=== PATIENT | female | born 1980 | race Caucasian/White ===

== ENCOUNTER 2020-05-15 21:33 | Emergency (ER) | payer MEDICAID, SELFPAY ==
[2020-05-15 22:58] VITALS: BP 103/61; PULSE 85; RESP 18; TEMP 36.3; O2SAT 99; BMI 21.6
--- NOTE | 2020-05-15 23:30 | ED.BACK ---
HPI - Back Pain/Injury General Chief Complaint: Back Pain/Injury Stated Complaint: back pain Time Seen by Provider: 05/15/20 23:15 Source: patient Mode of arrival: ambulatory Limitations: language barrier ([place] Speaking ) History of Present Illness HPI Narrative: 39yoF c PMHx of anxiety, depression and asthma presenting to the ED with complaints of left back/lower/left flank pain for the past 5 days worse today. Patient describes the pain as ?contractions?. Denies currently being or thoughts of at this time. Although she is sexually active with no protection. Reports she has been taking over the counter Motrin 600 and no symptomatic relief. Denies any other additional complaints or concerns at this time. 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 Related Data Allergies Allergy/AdvReac Type Severity Reaction Status Date / Time heparin [HEPARIN] Allergy Severe HIT Unverified 04/05/20 16:57 morphine [MORPHINE] Allergy Unknown N/A Unverified 04/05/20 16:57 Review of Systems Review of Systems: Constitutional : No Weight loss, No Fever, No Chills, no trauma Cardiovascular : No Chest Pain, No SOB Respiratory : No Cough, No Sputum, No Wheezing Gastrointestinal : No Nausea, No Vomiting, No Diarrhea, No Constipation, No abdominal Pain, No Hematochezia, No Melena Genitourinary : no irregular bleeding, No Dysuria, No Urinary Frequency, No Hematuria, No Urinary Incontinence, No Urgency, No Flank Pain, No Urinary Flow Changes, No Hesitancy, Bowel/Bladder Incont Musculoskeletal : No joint pain, No Myalgias, No Joint Swelling, No neck pain, extremity pain or swelling Skin : No Skin Lesions, No rash Neuro : No Weakness, No Numbness, No Paresthesias, No Loss of Consciousness, No Dizziness, No Headache Heme/Lymph: No Lymphadenopathy Yes all other systems are reviewed and are negative [facility] Past Medical History Attestation statement: The following information was validated with the patient. Medical History Anxiety Asthma Depressed Social History Social History Alcohol intake: never Smoking Status: Never smoker Use of substances other than those prescribed or required for medical reasons: No Advance Directives: No Physical Exam Vital Signs: Vital Signs: Vital Signs Temp Pulse Resp BP Pulse Ox 05/15/20 22:58 97.4 F 85 18 103/61 99 Body Mass Index 21.6 vital signs have been reviewed as normal and appeared to be correct. Blood pressure normal. Heart rate normal. Respiration rate normal. Temperature normal. Oxygen saturation normal. Appearance: Alert. Oriented X3. No acute distress. Head: Normal external exam. Normocephalic. Atraumatic. No Morris signs noted. No raccoon eyes noted Eyes: PERRLA. EOMI. Conjunctiva and sclera normal. Eyelids normal. ENT: EAC normal. TM's Normal. Pharynx normal. Uvula midline. Moist mucous membranes. No trismus noted. No drooling noted. No muffled voice noted. Neck: Normal inspection. Neck supple. FROM. No adenopathy. Thyroid Normal. No meningeal signs. No neck mass noted. CVS: Normal heart rate and rhythm. Heart sound normal. No murmurs noted. Pulses normal throughout. Respiratory: No respiratory distress. Painless inspiration. Breath sounds normal. No wheezes/rales/rhonchi noted. Chest nontender. No accessory muscle usage noted or decreased air movement noted. Abdomen: Soft and nontender. Bowel sounds normal in all 4 quadrants. No distention noted. No organomegaly noted. No visible injury noted. Back: + Left CVA tenderness. - Right CVA tenderness. Full range of motion noted. No obvious deformities, or edema. Mild para-spinal muscular tenderness from lumbar region to coccyx. Full ROM in back and lower extremities. 5/5 strength hip extension/flexion, abduction, adduction. Mild Lumbar pain with hip flexion against resistance. Straight leg raise test negative on right; Straight leg raise test negative on left; Reflexes normal ankle and knee bilaterally; EHL motor strength normal bilaterally Skin: Skin warm and dry. Normal skin color. Normal skin turgor. No rashes/lesions/lacerations noted. Extremities: No lower extremity edema. Extremities exhibit normal range of motion. Extremities nontender. Neuro: Oriented X 3. No motor deficit. No sensory deficit. Reflexes normal. Course Course Course Narrative: 23:26PM - 39yoF c PMHx of anxiety, depression and asthma presenting to the ED with complaints of left back/lower/left flank pain for the past 5 days worse today. - Concern for Kidney stones vs UTI vs muscle spasm. - Plan: UA, UHCG, CT scan of abdomen and pelvis. Provide symptomatic treatment with Toradol and Flexeril then re-evaluate. Reevaluation(s) Reevaluation #1: Labs within normal limits. Serum quant negative. UHCG negative for . UA within normal limits no evidence of UTI. Awaiting CT scan of abdomen pelvis. Will re-evaluate Time: 01:12 MDM - Back Pain/Injury Lab Data Result diagrams: 05/16/20 00:23 05/16/20 00:23 Labs: Lab Results 05/16/20 05/16/20 05/16/20 Range/Units 00:23 00:23 00:23 WBC 6.2 (4.8-10.8) X10*3/uL RBC 4.09 L (4.20-5.50) X10*6/uL Hgb 11.6 L (12.0-16.0) g/dl Hct 34.9 L (37-47) % MCV 85.3 (80-98) fL MCH 28.4 (27.0-33.0) pg MCHC 33.2 (31.0-35.0) g/dl RDW 12.8 (11.0-16.0) % Plt Count 177 (160-400) X10*3/uL MPV 10.5 (9.4-12.3) fL Immature Gran % (Auto) 0.2 (0.0-0.4) % Neut % (Auto) 50.2 (45-73) % Lymph % (Auto) 39.8 (20-40) % [place] % (Auto) 7.9 (2-11) % Eos % (Auto) 1.4 (0-4) % Baso % (Auto) 0.5 (0-2) % Lymph # (Auto) 2.5 (1.2-4.9) X10*3/uL [place] # (Auto) 0.5 (0.1-1.2) X10*3/uL Eos # (Auto) 0.1 (0.0-0.4) X10*3/uL Baso # (Auto) 0.0 (0.0-0.2) X10*3/uL Abs Immat Gran (auto) 0.01 (0.00-0.03) X10*3/uL Absolute Neuts (auto) 3.1 (2.0-8.3) X10*3/uL Absolute Nucleated RBC 0.000 (0.0-0.012) X10*3/uL Nucleated RBC % (auto) 0.0 (0.0-0.2) /100WBC PT 12.3 (10.8-13.0) SEC INR 1.0 (0.9-1.1) Sodium 141 (135-145) mmol/L Potassium 3.6 (3.3-5.1) mmol/l Chloride 107 (96-108) mmol/L Carbon Dioxide 23 (22-29) mmol/L Anion Gap 15 (12-20) BUN 15 (9-16) mg/dL Creatinine 0.80 (0.5-1.4) mg/dL Estim Creat Clear Calc 65.6 Estimated GFR > 60 Random Glucose 94 (60-115) mg/dL Calcium 9.3 (8.4-10.2) mg/dL Beta HCG, Quant < 2 mIU/mL Urine Color Urine Appearance Urine pH (5.0-8.0) Ur Specific [place] (1.005-1.025) Urine Protein (NEG-TRACE) MG/DL Urine Glucose (UA) (NEG) MG/DL Urine Ketones (NEG) MG/DL Urine Blood (NEG) Urine Nitrite (NEG) Ur Leukocyte Esterase (NEG) Urine Test (NEGATIVE) 05/16/20 Range/Units 00:23 WBC (4.8-10.8) X10*3/uL RBC (4.20-5.50) X10*6/uL Hgb (12.0-16.0) g/dl Hct (37-47) % MCV (80-98) fL MCH (27.0-33.0) pg MCHC (31.0-35.0) g/dl RDW (11.0-16.0) % Plt Count (160-400) X10*3/uL MPV (9.4-12.3) fL Immature Gran % (Auto) (0.0-0.4) % Neut % (Auto) (45-73) % Lymph % (Auto) (20-40) % [place] % (Auto) (2-11) % Eos % (Auto) (0-4) % Baso % (Auto) (0-2) % Lymph # (Auto) (1.2-4.9) X10*3/uL [place] # (Auto) (0.1-1.2) X10*3/uL Eos # (Auto) (0.0-0.4) X10*3/uL Baso # (Auto) (0.0-0.2) X10*3/uL Abs Immat Gran (auto) (0.00-0.03) X10*3/uL Absolute Neuts (auto) (2.0-8.3) X10*3/uL Absolute Nucleated RBC (0.0-0.012) X10*3/uL Nucleated RBC % (auto) (0.0-0.2) /100WBC PT (10.8-13.0) SEC INR (0.9-1.1) Sodium (135-145) mmol/L Potassium (3.3-5.1) mmol/l Chloride (96-108) mmol/L Carbon Dioxide (22-29) mmol/L Anion Gap (12-20) BUN (9-16) mg/dL Creatinine (0.5-1.4) mg/dL Estim Creat Clear Calc Estimated GFR Random Glucose (60-115) mg/dL Calcium (8.4-10.2) mg/dL Beta HCG, Quant mIU/mL Urine Color YELLOW Urine Appearance CLEAR Urine pH 5.5 (5.0-8.0) Ur Specific [place] 1.025 (1.005-1.025) Urine Protein NEG (NEG-TRACE) MG/DL Urine Glucose (UA) NEG (NEG) MG/DL Urine Ketones 5 (NEG) MG/DL Urine Blood NEG (NEG) Urine Nitrite NEG (NEG) Ur Leukocyte Esterase NEG (NEG) Urine Test NEGATIVE (NEGATIVE)
--- NOTE | 2020-05-16 00:10 | CT_ITS ---
EXAMINATION: CT ABDOMEN AND PELVIS WITHOUT CONTRAST CLINICAL INFORMATION: Left back/flank pain. COMPARISON: 05/26/2016 TECHNIQUE: Multidetector volumetric imaging was performed from the superior aspect of the liver through the pubic symphysis. Sagittal and coronal reformatted images were obtained on the technologist's workstation. This CT examination was performed using dose optimization techniques as appropriate, variously including the following: *Automated exposure control *Adjustment of mA and/or kV according to patient size (this includes techniques or standardized protocols for targeted exams where dose is matched to indication/reason for exam; i.e. extremities or head) *Use of iterative reconstruction technique DLP: 288 mGy-cm FINDINGS: LUNG BASES: The visualized lung bases are unremarkable. LIVER, GALLBLADDER, AND BILIARY TREE: The liver is normal in size, shape, and attenuation. No focal hepatic lesion or biliary ductal dilatation is present. The gallbladder is contracted with no evidence of radiopaque gallstones, gallbladder wall thickening, or obvious pericholecystic inflammatory changes. PANCREAS: Unremarkable. SPLEEN: Unremarkable. ADRENAL GLANDS: Unremarkable. KIDNEYS AND URETERS: The kidneys are normal in size, shape, and attenuation. No hydronephrosis, hydroureter, or calculi seen. No perinephric stranding. BLADDER: Unremarkable. GASTROINTESTINAL TRACT: The stomach is unremarkable. Normal caliber small bowel. No obstruction. No colonic wall thickening. Partially visualized normal appearing appendix. No free air. There is likely trace pelvic free fluid. ABDOMINAL WALL: No significant hernia is appreciated. LYMPH NODES: Normal. VASCULAR: Unremarkable. PELVIC VISCERA: The uterus and adnexa are unremarkable. OSSEOUS STRUCTURES: No acute or suspicious osseous abnormality. CT/CT abdomen pelvis wo con IMPRESSION: No acute findings of the abdomen or pelvis. No hydronephrosis or nephrolithiasis.
[2020-05-16 00:30] LABS: Basophils Percent Auto 0.5 % (0-2); Eosinophils Absolute Auto 0.1 X10*3/uL (0.0-0.4); Eosinophils Percent Auto 1.4 % (0-4); Hematocrit 34.9 % (37-47); Hemoglobin 11.6 g/dl (12.0-16.0); Imm Gran Abs Auto 0.01 X10*3/uL (0.00-0.03); Imm Gran Pct Auto 0.2 % (0.0-0.4); Lymphocytes Absolute Auto 2.5 X10*3/uL (1.2-4.9); Lymphocytes Percent Auto 39.8 % (20-40); MANUAL DIFF FLAG NO; Mean Corpuscular HGB Conc 33.2 g/dl (31.0-35.0); Mean Corpuscular Hemoglobin 28.4 pg (27.0-33.0); Mean Corpuscular Volume 85.3 fL (80-98); Mean Platelet Volume 10.5 fL (9.4-12.3); Monocytes Absolute Auto 0.5 X10*3/uL (0.1-1.2); Monocytes Percent Auto 7.9 % (2-11); Neutrophils Absolute Auto 3.1 X10*3/uL (2.0-8.3); Neutrophils Percent Auto 50.2 % (45-73); Platelet Count 177 X10*3/uL (160-400); Red Blood Count 4.09 X10*6/uL (4.20-5.50); Red Cell Distribution Width 12.8 % (11.0-16.0); White Blood Count 6.2 X10*3/uL (4.8-10.8)
[2020-05-16 00:37] LABS: Prothrombin Time 12.3 SEC (10.8-13.0)
[2020-05-16] MEDS: Ketorolac Tromethamine 15 MG/ML VIAL IM (00:49)
[2020-05-16] MEDS: Cyclobenzaprine HCl 10 MG TABLET PO (00:49)
[2020-05-16 00:51] LABS: Appearance Urine CLEAR; Color Urine YELLOW; Glucose Urine UA NEG (NEG); Leukocyte Esterase Urine NEG (NEG); Nitrite Urine NEG (NEG); PH 5.5 (5.0-8.0); Specific Gravity - Urine 1.025 (1.005-1.025); UACC Culture Trigger NO; UPreg QC Valid YES; Urine Blood NEG (NEG); Urine Ketones 5 MG/DL (NEG); Urine Protein NEG (NEG-TRACE)
[2020-05-16 00:52] LABS: Urine Pregnancy NEGATIVE (NEGATIVE)
[2020-05-16 00:54] LABS: Anion Gap 15 (12-20); Blood Urea Nitrogen 15 mg/dL (9-16); Calcium 9.3 mg/dL (8.4-10.2); Carbon Dioxide 23 mmol/L (22-29); Creatinine Clr Calc Pharmacy 65.6; Estimated Glomerular Filt Rate > 60; Glucose Random 94 mg/dL (60-115)
[2020-05-16 00:56] LABS: Chloride 107 mmol/L (96-108); Potassium 3.6 mmol/l (3.3-5.1); Sodium 141 mmol/L (135-145)
[2020-05-16 01:04] LABS: HCG Quantitative < 2 mIU/mL
[2020-05-16 02:00] VITALS: BP 122/68; PULSE 76; RESP 18; TEMP 36.8; O2SAT 98
[2020-05-16 03:33] VITALS: BP 136/78; PULSE 16; O2SAT 98
== END 2020-05-16 03:36 | disposition home or self-care (01) ==
PROVIDERS: Physician Assistant Medical; Emergency Provider Emergency Medicine
DX: M54.5 Low back pain (principal); R10.9 Unspecified abdominal pain; F41.1 Generalized anxiety disorder; F43.0 Acute stress reaction
CPT/HCPCS: 36415; 74176; 80048; 81003; 81025; 84702; 85025; 85610; 96372; 99284; J1885

== ENCOUNTER 2021-06-09 09:51 | Emergency (ER) | payer MEDICAID, SELFPAY ==
[2021-06-09 09:56] VITALS: BP 110/65; PULSE 72; RESP 19; TEMP 36.1; O2SAT 97; BMI 23.8
[2021-06-09 11:17] LABS: MANUAL DIFF FLAG NO
[2021-06-09] MEDS: 0.9 % Sodium Chloride 1,000 ML 999 ML IVCONT (11:17)
[2021-06-09] MEDS: ondansetron HCL 4 MG/2 ML VIAL IVPUSH (11:17)
[2021-06-09 11:19] LABS: Basophils Percent Auto 0.3 % (0-2); Eosinophils Percent Auto 0.3 % (0-4); Hematocrit 36.3 % (37.0-47.0); Hemoglobin 12.2 g/dl (12.0-16.0); Imm Gran Abs Auto 0.03 X10*3/uL (0.00-0.03); Imm Gran Pct Auto 0.3 % (0.0-0.4); Lymphocytes Absolute Auto 1.7 X10*3/uL (1.2-4.9); Lymphocytes Percent Auto 16.3 % (20-40); Mean Corpuscular HGB Conc 33.6 g/dl (31.0-35.0); Mean Corpuscular Hemoglobin 28.6 pg (27.0-33.0); Monocytes Absolute Auto 0.5 X10*3/uL (0.1-1.2); Monocytes Percent Auto 4.3 % (2-11); Neutrophils Absolute Auto 8.2 x10*3/uL (2.0-8.3); Neutrophils Percent Auto 78.5 % (45-73); Platelet Count 194 X10*3/uL (160-400); Red Blood Count 4.27 X10*6/uL (4.20-5.50); Red Cell Distribution Width 13.6 % (11.0-16.0); White Blood Count 10.4 X10*3/uL (4.8-10.8)
[2021-06-09 11:34] LABS: COVID-19 Test Negative (Negative); IDNOW Serial# 9DD0AD1C
--- NOTE | 2021-06-09 11:43 | ED.NAVMDI ---
HPI - Nausea/Vomiting/Diarrhea General Chief complaint: Nausea/Vomiting/Diarrhea Stated complaint: abd pain, vomiting, hx of gastritis Time Seen by Provider: 06/09/21 10:59 Source: patient Mode of arrival: ambulatory Limitations: no limitations History of Present Illness HPI Narrative: 40-year-old female with a history of depression, anxiety, mild intermittent asthma, cyclical vomiting who presents to the ER with acute onset of nausea, vomiting and epigastric pain that started this morning. She states she has vomited countless times since she woke up. She reports epigastric burning pain with a history of gastritis. She is dry heaving and triage. She appears weak and fatigued. She denies a history of diabetes. She reports a history of marijuana smoking and cyclical vomiting in the past. She denies any diarrhea or fevers. No new urinary symptoms. Denies chance of . MD elicited complaint: nausea, vomiting and abdominal pain Pertinent past history: cyclical vomiting Onset (ago): hour(s) Description of vomiting: food contents and bilious Associated nausea: Yes Associated abdominal pain: Yes Location of pain: epigastric Pain consistency: constant Severity: moderate Quality: aching Exacerbating factors: none Relieving factors: none Context: marijuana use Associated symptoms: loss of appetite, malaise, nausea/vomiting and weakness Related Data Previous Rx's Medication Instructions Recorded cyclobenzaprine 10 mg tablet 10 mg PO TID PRN #14 tab 05/16/20 ondansetron 4 mg disintegrating 4 mg PO Q8H PRN #7 tab 06/09/21 tablet Allergies Allergy/AdvReac Type Severity Reaction Status Date / Time heparin [HEPARIN] Allergy Severe HIT Unverified 04/05/20 16:57 morphine [MORPHINE] Allergy Unknown N/A Unverified 04/05/20 16:57 Review of Systems Review of Systems: Constitutional: No Fever, No Chills ENT/Mouth: No sore throat, No Rhinorrhea, No Swallowing Difficulty Cardiovascular: No Chest Pain, No SOB, No Orthopnea, No Edema Respiratory: No Cough, No Sputum, No Wheezing, No dyspnea Gastrointestinal: + Nausea, + Vomiting, No Diarrhea, + abdominal Pain, No Hematochezia, No Melena, No hematemesis Genitourinary: No Dysuria, No Urinary Frequency, No Hematuria Musculoskeletal: No joint pain, No Myalgias Skin: No Skin Lesions, No rash Neuro: + Weakness, No Numbness, No Dizziness, + Headache Psych: No Anxiety/Panic, No Depression Heme/Lymph: No Bruising, No Lymphadenopathy Endocrine: No Polyuria, No Polydipsia Gastrointestinal: Gastrointestinal: Reports nausea PMFSH Past Medical History Medical History Anxiety Asthma Depressed Social History Social History Alcohol intake: never Use of substances other than those prescribed or required for medical reasons: Yes Substance Use Type: Marijuana Advance Directives: No Advance Directives Information Provided: Yes Patient : No Physical Exam Vital Signs: Vital Signs: Last Vital Signs Temp 97 F 06/09/21 09:56 Pulse 76 06/09/21 16:09 Resp 16 06/09/21 16:09 BP 127/67 06/09/21 16:09 Pulse Ox 99 06/09/21 16:09 Body Mass Index 23.8 Appearance: Lethargic young female folded in half in the bed with yellow mucus from her mouth dry heaving. Eyes: Pupils equal, round and reactive to light. ENT: Pharynx normal. Neck: Normal inspection. Neck supple. CVS: Normal heart rate and rhythm. Pulses normal. Respiratory: No respiratory distress. Breath sounds normal. Abdomen: Soft with epigastric tenderness and guarding, hyperactive +BS x4 Skin: Skin warm and dry. Normal skin color. Normal skin turgor. No rashes. Extremities: No lower extremity edema. Neuro: Lethrgic, oriented X 3. No motor deficit. No sensory deficit. Course Course Course Narrative: 40 y/o female with history of cyclical vomiting and marijuana use presents to the ER with acute onset of nausea, vomiting, epigastric pain that started this morning. She appears unwell with active dry heaving on arrival. Her vital signs are normal, she is afebrile. Will start IV give IV Zofran, IV fluids and check basic lab work. Will rule out electrolyte abnormalities. Will check for COVID-19. Will reassess after IV medication. Reevaluation(s) Reevaluation #1: Patient persistently vomiting after Zofran. Patient was then given IV Reglan and Benadryl with good affect. Her lab work is unremarkable. Will continue to monitor. 2nd L of IV fluids were ordered. Reevaluation #2: Sleeping comfortably after 2nd round of meds. Marijuana positive. Tolerated some nahid shyann and cracker. Stable for d/c home. MDM - Nausea/Vomiting/Diarrhea Lab Data Result diagrams: 06/09/21 11:13 06/09/21 11:53 Labs: Lab Results 06/09/21 06/09/21 06/09/21 Range/Units 11:13 11:13 11:53 WBC 10.4 (4.8-10.8) X10*3/uL RBC 4.27 (4.20-5.50) X10*6/uL Hgb 12.2 (12.0-16.0) g/dl Hct 36.3 L (37.0-47.0) % MCV 85.0 (80.0-98.0) fL MCH 28.6 (27.0-33.0) pg MCHC 33.6 (31.0-35.0) g/dl RDW 13.6 (11.0-16.0) % Plt Count 194 (160-400) X10*3/uL MPV 11.0 (9.4-12.3) fL Immature Gran % (Auto) 0.3 (0.0-0.4) % Neut % (Auto) 78.5 H (45-73) % Lymph % (Auto) 16.3 L (20-40) % [place] % (Auto) 4.3 (2-11) % Eos % (Auto) 0.3 (0-4) % Baso % (Auto) 0.3 (0-2) % Lymph # (Auto) 1.7 (1.2-4.9) X10*3/uL [place] # (Auto) 0.5 (0.1-1.2) X10*3/uL Eos # (Auto) 0.0 (0.0-0.4) X10*3/uL Baso # (Auto) 0.0 (0.0-0.2) X10*3/uL Abs Immat Gran (auto) 0.03 (0.00-0.03) X10*3/uL Absolute Neuts (auto) 8.2 (2.0-8.3) x10*3/uL Absolute Nucleated RBC 0.000 (0.0-0.012) X10*3/uL Nucleated RBC % (auto) 0.0 (0.0-0.2) /100WBC Sodium 144 (135-145) mmol/L Potassium 3.6 (3.3-5.1) mmol/L Chloride 110 H (96-108) mmol/L Carbon Dioxide 21 L (22-29) mmol/L Anion Gap 17 (12-20) BUN 6 L D (9-16) mg/dL Creatinine 0.68 (0.5-1.4) mg/dL Estim Creat Clear Calc 88.7 Estimated GFR > 60 Random Glucose 129 H (60-115) mg/dL Calcium 8.9 (8.4-10.2) mg/dL Magnesium 2.1 (1.6-2.6) mg/dL Total Bilirubin 0.3 (0.0-1.0) mg/dL Direct Bilirubin < 0.2 (0.0-0.5) mg/dL AST 38 H (5-31) U/L ALT 31 (0-31) U/L Alkaline Phosphatase 50 (39-117) U/L Total Protein 6.6 (6.5-8.0) g/dL Albumin 4.0 (3.5-5.0) g/dL Lipase 18 (8-78) U/L Beta HCG, Quant < 2 mIU/mL Urine Color Urine Appearance Urine pH (5.0-8.0) Ur Specific [place] (1.005-1.025) Urine Protein (NEG-TRACE) MG/DL Urine Glucose (UA) (NEG) MG/DL Urine Ketones (NEG) MG/DL Urine Blood (NEG) Urine Nitrite (NEG) Ur Leukocyte Esterase (NEG) Urine Test (NEGATIVE) Urine Opiates Screen (Not Detect) Urine Fentanyl Screen (Not Detect) Ur Barbiturates Screen (Not Detect) Ur Phencyclidine Scrn (Not Detect) Ur Amphetamines Screen (Not Detect) U Benzodiazepines Scrn (Not Detect) Urine Cocaine Screen (Not Detect) U Marijuana (THC) Screen (Not Detect) COVID-19 (JENNIFER) Negative (Negative) COVID-19 Clin Com See Note 06/09/21 06/09/21 06/09/21 Range/Units 17:11 17:11 17:11 WBC (4.8-10.8) X10*3/uL RBC (4.20-5.50) X10*6/uL Hgb (12.0-16.0) g/dl Hct (37.0-47.0) % MCV (80.0-98.0) fL MCH (27.0-33.0) pg MCHC (31.0-35.0) g/dl RDW (11.0-16.0) % Plt Count (160-400) X10*3/uL MPV (9.4-12.3) fL Immature Gran % (Auto) (0.0-0.4) % Neut % (Auto) (45-73) % Lymph % (Auto) (20-40) % [place] % (Auto) (2-11) % Eos % (Auto) (0-4) % Baso % (Auto) (0-2) % Lymph # (Auto) (1.2-4.9) X10*3/uL [place] # (Auto) (0.1-1.2) X10*3/uL Eos # (Auto) (0.0-0.4) X10*3/uL Baso # (Auto) (0.0-0.2) X10*3/uL Abs Immat Gran (auto) (0.00-0.03) X10*3/uL Absolute Neuts (auto) (2.0-8.3) x10*3/uL Absolute Nucleated RBC (0.0-0.012) X10*3/uL Nucleated RBC % (auto) (0.0-0.2) /100WBC Sodium (135-145) mmol/L Potassium (3.3-5.1) mmol/L Chloride (96-108) mmol/L Carbon Dioxide (22-29) mmol/L Anion Gap (12-20) BUN (9-16) mg/dL Creatinine (0.5-1.4) mg/dL Estim Creat Clear Calc Estimated GFR Random Glucose (60-115) mg/dL Calcium (8.4-10.2) mg/dL Magnesium (1.6-2.6) mg/dL Total Bilirubin (0.0-1.0) mg/dL Direct Bilirubin (0.0-0.5) mg/dL AST (5-31) U/L ALT (0-31) U/L Alkaline Phosphatase (39-117) U/L Total Protein (6.5-8.0) g/dL Albumin (3.5-5.0) g/dL Lipase (8-78) U/L Beta HCG, Quant mIU/mL Urine Color YELLOW Urine Appearance HAZY Urine pH 7.0 (5.0-8.0) Ur Specific [place] 1.010 (1.005-1.025) Urine Protein TRACE (NEG-TRACE) MG/DL Urine Glucose (UA) NEG (NEG) MG/DL Urine Ketones 5 (NEG) MG/DL Urine Blood NEG (NEG) Urine Nitrite NEG (NEG) Ur Leukocyte Esterase NEG (NEG) Urine Test NEGATIVE (NEGATIVE) Urine Opiates Screen Not Detected (Not Detect) Urine Fentanyl Screen Not Detected (Not Detect) Ur Barbiturates Screen Not Detected (Not Detect) Ur Phencyclidine Scrn Not Detected (Not Detect) Ur Amphetamines Screen Not Detected (Not Detect) U Benzodiazepines Scrn Not Detected (Not Detect) Urine Cocaine Screen Not Detected (Not Detect) U Marijuana (THC) Screen POSITIVE H (Not Detect) COVID-19 (JENNIFER) (Negative) COVID-19 Clin Com Critical Care Time Critical Care Time Critical Care Time: No Discharge Plan Discharge Clinical Impression: Cyclical vomiting Patient Disposition: Home, Self-Care Instructions: Cyclic Vomiting Syndrome (ED) Additional Instructions: your lab workup was unremarkable. you were negative for COVID-19 recommend STOP smoking marijuana - this can cause cyclical vomiting that is hard to control stick to a bland diet while you are not feeling well take the prescribed medication as needed for nausea follow up with your doctor as needed if you develop new or worsening symptoms call 911 or come back to the ER for further evaluation. Prescriptions: New ondansetron 4 mg tablet,disintegrating 4 mg PO Q8H PRN (Reason: nausea and vomiting) Qty: 7 RF: 0 No Action cyclobenzaprine 10 mg tablet 10 mg PO TID PRN (Reason: muscle spasm) Qty: 14 RF: 0 Interventions: ED Discharge Assessment Last Done: 06/09/21 18:39 Discharge Date/Time: 06/09/21 18:39
[2021-06-09] MEDS: Metoclopramide HCl 10 MG/2 ML VIAL IVPUSH (11:56)
[2021-06-09] MEDS: diphenhydrAMINE HCL 50 MG/ML VIAL 25 MG IVPUSH (11:56)
[2021-06-09 12:19] LABS: Alanine Aminotransferase 31 U/L (0-31); Alkaline Phosphatase 50 U/L (39-117); Anion Gap 17 (12-20); Aspartate Amino Transferase 38 U/L (5-31); Bilirubin Direct < 0.2 mg/dL (0.0-0.5); Bilirubin Total 0.3 mg/dL (0.0-1.0); Blood Urea Nitrogen 6 mg/dL (9-16); Calcium 8.9 mg/dL (8.4-10.2); Carbon Dioxide 21 mmol/L (22-29); Chloride 110 mmol/L (96-108); Creatinine Clr Calc Pharmacy 88.7; Estimated Glomerular Filt Rate > 60; Glucose Random 129 mg/dL (60-115); Lipase 18 U/L (8-78); Magnesium 2.1 mg/dL (1.6-2.6); Potassium 3.6 mmol/L (3.3-5.1); Sodium 144 mmol/L (135-145); Total Protein 6.6 g/dL (6.5-8.0)
[2021-06-09 12:36] LABS: HCG Quantitative < 2 mIU/mL
[2021-06-09] MEDS: Lactated Ringers 1,000 ML 999 ML IV (12:48)
[2021-06-09 16:09] VITALS: BP 127/67; PULSE 76; RESP 16; O2SAT 99
[2021-06-09 17:20] LABS: Appearance Urine HAZY; Color Urine YELLOW; Glucose Urine UA NEG (NEG); Leukocyte Esterase Urine NEG (NEG); Nitrite Urine NEG (NEG); Urine Blood NEG (NEG); Urine Ketones 5 MG/DL (NEG); Urine Protein TRACE MG/DL (NEG-TRACE)
[2021-06-09 17:22] LABS: UPreg QC Valid YES; Urine Pregnancy NEGATIVE (NEGATIVE)
[2021-06-09 17:37] LABS: Amphetamine Screen Urine Not Detected (Not Detect); Barbiturates, Urine Not Detected (Not Detect); Benzodiazepines Screen Urine Not Detected (Not Detect); Cannabinoid Screen Urine POSITIVE (Not Detect); Cocaine Screen Urine Not Detected (Not Detect); Fentanyl, urine Not Detected (Not Detect); Opiate Screen Urine Not Detected (Not Detect); Phencyclidine Screen Urine Not Detected (Not Detect)
== END 2021-06-09 18:39 | disposition home or self-care (01) ==
PROVIDERS: Physician Assistant; Emergency Provider Emergency Medicine Emergency Medical Services
DX: R11.15 Cyclical vomiting syndrome unrelated to migraine (principal); Z20.822 Contact with and (suspected) exposure to COVID-19; Z79.899 Other long term (current) drug therapy
CPT/HCPCS: 36415; 80048; 80076; 80307; 81003; 81025; 83690; 83735; 84702; 85025; 87635; 96361; 96374; 96375; 99284; J1200; J2405; J2765

== ENCOUNTER 2021-06-10 03:31 | Emergency (ER) | payer MEDICAID, SELFPAY ==
--- NOTE | ~2021-06-10 | XR_ITS ---
EXAMINATION: XR ABDOMEN KUB CLINICAL INDICATION: Low suspicion perforation COMPARISON: None TECHNIQUE: AP view of the abdomen. FINDINGS: The bowel gas pattern is nonobstructive. No gross evidence of intra-abdominal free air, though evaluation for this is limited on supine positioning. A few tiny calcifications are noted in the right pelvis, which may represent phleboliths. No acute osseous findings are seen. XR/XR KUB IMPRESSION: Nonobstructive bowel gas pattern. Limited assessment for free air with supine positioning; this would be better assessed on upright abdominal or chest radiograph.
[2021-06-10 03:38] VITALS: BP 128/82; BP 98/58; PULSE 60; PULSE 97; RESP 18; TEMP 36.9; O2SAT 97; O2SAT 98; BMI 21.2
--- NOTE | 2021-06-10 04:51 | ED.NAVMDI ---
HPI - Nausea/Vomiting/Diarrhea General Chief complaint: Nausea/Vomiting/Diarrhea Stated complaint: N/V Time Seen by Provider: 06/10/21 04:46 Source: patient Mode of arrival: ambulatory Limitations: no limitations History of Present Illness HPI Narrative: Patient comes to the emergency room complaining of vomiting. Patient was seen here yesterday for the same reason. Patient has history of depression, anxiety, intermittent asthma, cyclical vomiting. Patient admits to using marijuana. Patient also known to have gastritis. Patient states that she has chronic diarrhea for which she is currently being treated. Patient denies fever chills. MD elicited complaint: nausea and vomiting Related Data Previous Rx's Medication Instructions Recorded cyclobenzaprine 10 mg tablet 10 mg PO TID PRN #14 tab 05/16/20 ondansetron 4 mg disintegrating 4 mg PO Q8H PRN #7 tab 06/09/21 tablet Allergies Allergy/AdvReac Type Severity Reaction Status Date / Time heparin [HEPARIN] Allergy Severe HIT Verified 06/10/21 05:03 morphine [MORPHINE] Allergy Unknown N/A Verified 06/10/21 05:03 [facility] Past Medical History Medical History (Updated 06/10/21 @ 06:10 by Nani Casillas MD) Anxiety Asthma Depressed Marijuana abuse Social History Social History Alcohol intake: never Substance Use Type: Marijuana Advance Directives: No Advance Directives Information Provided: No Patient : No Physical Exam Vital Signs: Vital Signs: Last Vital Signs Temp 98.4 F 06/10/21 03:38 Pulse 60 06/10/21 03:38 Resp 18 06/10/21 03:38 BP 98/58 L 06/10/21 03:38 Pulse Ox 98 06/10/21 03:38 Body Mass Index 21.2 Const: Other: Appearance: Alert. Oriented X3. retching and vomiting Eyes: Pupils equal, round and reactive to light. ENT: Pharynx normal. Neck: Normal inspection. Neck supple. No lymph nodes noted. No crepitus CVS: Normal heart rate and rhythm. Pulses normal. Normal S1 and S2 Respiratory: No respiratory distress. Breath sounds normal. No Wheezing. No rales Abdomen: Soft complaining of epigastric pain, No rigidity. No distention. Skin: Skin warm and dry. Normal skin color. Normal skin turgor. Extremities: No lower extremity edema. No Lacerations. No Rash Neuro: Oriented X 3. No motor deficit. No sensory deficit. Moving all extermities. No slurred speech. Course Course Course Narrative: Patient received 1 dose of p.o. Zofran, IV Compazine, IM Haldol, IV fluids. Patient stopped vomiting, patient is sleeping. When patient wakes up she will need EPO challenged. KUB negative for free air or bowel obstruction pattern Patient's white blood cell count likely secondary to reactive leukocytosis from continued vomiting. Sepsis is not suspected. Signout given to Dr. Tay [facility] - Nausea/Vomiting/Diarrhea Lab Data Result diagrams: 06/10/21 05:01 06/10/21 05:01 Labs: Lab Results 06/10/21 06/10/21 Range/Units 05:01 05:01 WBC 15.9 H (4.8-10.8) X10*3/uL RBC 4.08 L (4.20-5.50) X10*6/uL Hgb 11.7 L (12.0-16.0) g/dl Hct 34.9 L (37.0-47.0) % MCV 85.5 (80.0-98.0) fL MCH 28.7 (27.0-33.0) pg MCHC 33.5 (31.0-35.0) g/dl RDW 14.2 (11.0-16.0) % Plt Count 181 (160-400) X10*3/uL MPV 11.5 (9.4-12.3) fL Immature Gran % (Auto) 0.4 (0.0-0.4) % Neut % (Auto) 84.8 H (45-73) % Lymph % (Auto) 8.7 L (20-40) % [place] % (Auto) 6.0 (2-11) % Eos % (Auto) 0.0 (0-4) % Baso % (Auto) 0.1 (0-2) % Lymph # (Auto) 1.4 (1.2-4.9) X10*3/uL [place] # (Auto) 1.0 (0.1-1.2) X10*3/uL Eos # (Auto) 0.0 (0.0-0.4) X10*3/uL Baso # (Auto) 0.0 (0.0-0.2) X10*3/uL Abs Immat Gran (auto) 0.07 H (0.00-0.03) X10*3/uL Absolute Neuts (auto) 13.5 H (2.0-8.3) x10*3/uL Absolute Nucleated RBC 0.000 (0.0-0.012) X10*3/uL Nucleated RBC % (auto) 0.0 (0.0-0.2) /100WBC Sodium 142 (135-145) mmol/L Potassium 4.6 D (3.3-5.1) mmol/L Chloride 107 (96-108) mmol/L Carbon Dioxide 20 L (22-29) mmol/L Anion Gap 20 (12-20) BUN 11 D (9-16) mg/dL Creatinine 0.78 (0.5-1.4) mg/dL Estim Creat Clear Calc 66.6 Estimated GFR > 60 Random Glucose 106 (60-115) mg/dL Calcium 9.1 (8.4-10.2) mg/dL Total Bilirubin 0.7 (0.0-1.0) mg/dL Direct Bilirubin 0.3 (0.0-0.5) mg/dL AST 48 H (5-31) U/L ALT 39 H (0-31) U/L Alkaline Phosphatase 53 (39-117) U/L Total Protein 7.4 (6.5-8.0) g/dL Albumin 4.2 (3.5-5.0) g/dL Lipase 11 (8-78) U/L Beta HCG, Quant < 2 mIU/mL Imaging Data KUB: Radiologist's impression: The bowel gas pattern is nonobstructive. No gross evidence of intra-abdominal free air, though evaluation for this is limited on supine positioning. A few tiny calcifications are noted in the right pelvis, which may represent phleboliths. No acute osseous findings are seen. XR/XR KUB IMPRESSION: Nonobstructive bowel gas pattern. Limited assessment for free air with supine positioning; this would be better assessed on upright abdominal or chest radiograph. Discharge Plan Discharge Clinical Impression: Cyclical vomiting Prescriptions: No Action cyclobenzaprine 10 mg tablet 10 mg PO TID PRN (Reason: muscle spasm) Qty: 14 RF: 0 ondansetron 4 mg tablet,disintegrating 4 mg PO Q8H PRN (Reason: nausea and vomiting) Qty: 7 RF: 0
[2021-06-10] MEDS: Prochlorperazine Edisylate 10 MG/2 ML VIAL IVPUSH (05:03)
[2021-06-10] MEDS: Famotidine/PF 20 MG/2 ML VIAL IVPUSH (05:03)
[2021-06-10] MEDS: Haloperidol Lactate 5 MG/ML VIAL 2.5 MG IM (05:03)
[2021-06-10 05:04] LABS: Basophils Percent Auto 0.1 % (0-2); Hematocrit 34.9 % (37.0-47.0); Hemoglobin 11.7 g/dl (12.0-16.0); Imm Gran Abs Auto 0.07 X10*3/uL (0.00-0.03); Imm Gran Pct Auto 0.4 % (0.0-0.4); Lymphocytes Absolute Auto 1.4 X10*3/uL (1.2-4.9); Lymphocytes Percent Auto 8.7 % (20-40); Mean Corpuscular HGB Conc 33.5 g/dl (31.0-35.0); Mean Corpuscular Hemoglobin 28.7 pg (27.0-33.0); Mean Corpuscular Volume 85.5 fL (80.0-98.0); Mean Platelet Volume 11.5 fL (9.4-12.3); Neutrophils Absolute Auto 13.5 x10*3/uL (2.0-8.3); Neutrophils Percent Auto 84.8 % (45-73); Platelet Count 181 X10*3/uL (160-400); Red Blood Count 4.08 X10*6/uL (4.20-5.50); Red Cell Distribution Width 14.2 % (11.0-16.0); WBC ABN SCTR 1
[2021-06-10 05:05] LABS: MANUAL DIFF FLAG NO
[2021-06-10 05:06] LABS: WBC ABN SCTR FOR CBC 1
[2021-06-10] MEDS: 0.9 % Sodium Chloride 1,000 ML 999 ML IVCONT (05:07)
[2021-06-10 05:11] LABS: White Blood Count 15.9 X10*3/uL (4.8-10.8)
[2021-06-10 05:30] LABS: Alanine Aminotransferase 39 U/L (0-31); Albumin Level 4.2 g/dL (3.5-5.0); Alkaline Phosphatase 53 U/L (39-117); Anion Gap 20 (12-20); Aspartate Amino Transferase 48 U/L (5-31); Bilirubin Direct 0.3 mg/dL (0.0-0.5); Bilirubin Total 0.7 mg/dL (0.0-1.0); Blood Urea Nitrogen 11 mg/dL (9-16); Calcium 9.1 mg/dL (8.4-10.2); Carbon Dioxide 20 mmol/L (22-29); Chloride 107 mmol/L (96-108); Creatinine Clr Calc Pharmacy 66.6; Estimated Glomerular Filt Rate > 60; Glucose Random 106 mg/dL (60-115); Lipase 11 U/L (8-78); Potassium 4.6 mmol/L (3.3-5.1); Sodium 142 mmol/L (135-145); Total Protein 7.4 g/dL (6.5-8.0)
[2021-06-10 05:33] LABS: HCG Quantitative < 2 mIU/mL
[2021-06-10 07:27] VITALS: BP 117/65; PULSE 55; RESP 18; O2SAT 100
--- NOTE | 2021-06-10 07:29 | PC.NURSE ---
Persistent epigastric abd pain 8/10, dry heaving. Urine collected.
[2021-06-10] MEDS: 0.9 % Sodium Chloride 1,000 ML 999 ML IV (07:36)
[2021-06-10] MEDS: ondansetron HCL 4 MG/2 ML VIAL IVPUSH (07:36)
[2021-06-10] MEDS: LORazepam 2 MG/ML VIAL 1 MG IVPUSH (07:37)
--- NOTE | 2021-06-10 07:37 | PC.NURSE ---
Medicated as charted
[2021-06-10 07:38] LABS: Appearance Urine CLEAR; Color Urine YELLOW; Glucose Urine UA NEG (NEG); Leukocyte Esterase Urine NEG (NEG); Nitrite Urine NEG (NEG); Specific Gravity - Urine >= 1.030 (1.005-1.025); UACC Culture Trigger NO; Urine Blood NEG (NEG); Urine Ketones 5 MG/DL (NEG); Urine Protein 2+ MG/DL (NEG-TRACE)
[2021-06-10 07:58] LABS: Amphetamine Screen Urine Not Detected (Not Detect); Barbiturates, Urine Not Detected (Not Detect); Benzodiazepines Screen Urine Not Detected (Not Detect); Cannabinoid Screen Urine POSITIVE (Not Detect); Cocaine Screen Urine Not Detected (Not Detect); Fentanyl, urine Not Detected (Not Detect); Opiate Screen Urine Not Detected (Not Detect); Phencyclidine Screen Urine Not Detected (Not Detect)
[2021-06-10 08:00] LABS: Mucus Urine 1+ /LPF; RBC Urine 0-2 /HPF (0); Squamous Epithelial Cell Urine 1+ /LPF; WBC Urine 0-2 /HPF (0-4)
--- NOTE | 2021-06-10 10:44 | PC.NURSE ---
Pt is asleep, attempting to awake for PO challenge. Barbarahter at bedside and will assist. No further vomiting s/p medication interventions
[2021-06-10 10:46] VITALS: BP 102/47; PULSE 50; RESP 14
== END 2021-06-10 11:30 | disposition home or self-care (01) ==
PROVIDERS: Emergency Medicine; Emergency Provider Emergency Medicine
DX: R11.15 Cyclical vomiting syndrome unrelated to migraine (principal); F12.10 Cannabis abuse, uncomplicated; D72.829 Elevated white blood cell count, unspecified
CPT/HCPCS: 36415; 74018; 80048; 80076; 80307; 81001; 83690; 84702; 85025; 96361; 96372; 96374; 96375; 99284; J2060; J2405

== ENCOUNTER → 2021-07-09 09:39 | Outpatient (BNVA) | payer MEDICAID, SELFPAY | PROVIDERS: Referring Provider Emergency Medicine; Visit Provider Nurse Practitioner Family | DX: K58.0 Irritable bowel syndrome with diarrhea (principal); K21.9 Gastro-esophageal reflux disease without esophagitis; R19.7 Diarrhea, unspecified | CPT/HCPCS: 99202 ==

== ENCOUNTER 2021-11-06 11:01 | Emergency (ER) | payer MEDICAID, SELFPAY ==
--- NOTE | ~2021-11-06 | XR_ITS ---
EXAMINATION: XR CHEST CLINICAL INFORMATION: Dyspnea COMPARISON: 06/24/2017 TECHNIQUE: Frontal view of the chest was obtained. FINDINGS: No significant abnormality is noted involving the heart, lungs, mediastinum, bony thorax or soft tissues. XR/XR chest 1V IMPRESSION: Unremarkable examination.
--- NOTE | 2021-11-06 11:17 | ECG_ITS ---
Test Reason : CHEST PAIN Blood Pressure : / mmHG Vent. Rate : 118 BPM Atrial Rate : 118 BPM P-R Int : 130 ms QRS Dur : 064 ms QT Int : 304 ms P-R-T Axes : 082 051 038 degrees QTc Int : 426 ms Sinus tachycardia Possible Left atrial enlargement Borderline ECG When compared with ECG of 25-MAR-2020 12:49, Vent. rate has increased BY 49 BPM T wave inversion no longer evident in Anterior leads Referred By: Generic ED Physician Electronically Signed By:ZANDRA MONROE MD
[2021-11-06 11:20] VITALS: BP 103/62; PULSE 109; RESP 25; TEMP 37.5; O2SAT 99; BMI 18.6
--- NOTE | 2021-11-06 11:48 | ED_ITS ---
HPI - General Adult General Chief complaint: Dyspnea Stated complaint: asthma diff breathing Time Seen by Provider: 11/06/21 11:47 Limitations: no limitations History of Present Illness HPI narrative: This is a 40-year-old female with history of asthma who complains of shortness of breath and some chest discomfort which started yesterday after she had been running in the rain. The patient also complains of some headache. She denies any nausea vomiting. She denies any rhinorrhea. She has felt like she has had a fever. She denies any pain or swelling in her legs. She denies any history of diabetes Related Data Previous Rx's Medication Instructions Recorded cyclobenzaprine 10 mg tablet 10 mg PO TID PRN #14 tab 05/16/20 ondansetron 4 mg disintegrating 4 mg PO Q8H PRN #7 tab 06/09/21 tablet ondansetron 4 mg disintegrating 4 mg PO Q8H PRN #20 tab 06/10/21 tablet promethazine 25 mg rectal 25 mg LA Q6H PRN #12 ea 06/10/21 suppository dicyclomine 10 mg capsule 10 mg PO TID #90 cap 07/09/21 methylcellulose (laxative) 500 mg 500 mg PO DAILY #30 tab 07/09/21 tablet (Citrucel) omeprazole 40 mg capsule,delayed 40 mg PO DAILY #90 cap 07/09/21 release Allergies Allergy/AdvReac Type Severity Reaction Status Date / Time heparin [HEPARIN] Allergy Severe HIT Verified 11/06/21 11:22 morphine [MORPHINE] Allergy Unknown N/A Verified 11/06/21 11:22 Review of Systems Review of Systems: Yes all other systems are reviewed and are negative Constitutional: Constitutional: Reports as per HPI and Denies fever(s) Eyes: Eyes: Reports as per HPI and Reports no additional eye complaints ENT: Reports system reviewed and no additional complaints, except as documented, Reports as per HPI, Denies nasal congestion, Denies nasal discharge and Denies sore throat Cardiovascular: Cardiovascular: Reports as per HPI, Denies chest pain and Reports dyspnea Respiratory: Respiratory: Reports as per HPI, Reports cough and Reports dyspnea Gastrointestinal: Gastrointestinal: Reports as per HPI, Denies abdominal pain, Denies diarrhea, Reports nausea and Denies vomiting Genitourinary: Genitourinary: Reports as per HPI, Denies hematuria, Denies urinary frequency and Denies dysuria Musculoskeletal: Musculoskeletal: Reports no additional musculoskeletal complaints and Denies numbness Integumentary/Breasts: Skin/Breast: Reports as per HPI and Denies rash Neurologic: Reports as per HPI, Denies focal weakness and Denies numbness Psychiatric: Psychiatric: Reports no additional psychiatric complaints and Reports as per HPI Endocrine: Endocrine: Reports no additional endocrine complaints and Reports as per HPI Hematologic/Lymphatic: Hematologic/Lymphatic: Reports no additional hematologic/lymphatic complaints, Reports as per HPI and Reports other (No peripheral edema) [facility] Past Medical History Medical History (Updated 11/06/21 @ 13:54 by Narinder Gutierrez MD) Anxiety Asthma Depressed Marijuana abuse Social History Social History Alcohol intake: current Alcohol intake frequency: holidays/special occasions only Substance Use Type: Marijuana Advance Directives: No Advance Directives Information Provided: No Physical Exam ED Vital Signs: Vital Signs - 24 hr 11/06/21 11:20 11/06/21 12:00 11/06/21 13:42 Temperature 99.5 F 98.6 F Pulse Rate 109 H 84 116 H Respiratory Rate 25 H 20 20 Blood Pressure 103/62 100/55 L Pulse Oximetry 99 96 BMI result Body Mass Index 18.6 Const Other: Patient anxious appearing, hyperventilating, but with distraction breathes normally, lungs clear to auscultation. Patient does have an intermittent dry cough General: no acute distress Orientation/consciousness: patient oriented x3 HENMT Head: Yes normal to inspection General nose exam: Normal external nose present Mouth: moist mucous membranes Throat: Yes posterior oropharynx normal, Yes tonsils normal and Yes uvula midline Eyes Eyelids: Yes eyelids normal Conjunctivae: conjunctivae normal Pupils: Equal, round and reactive pupils present Neck Neck: Yes supple Resp Effort & Inspection: normal respiratory effort Auscultation: clear to auscultation bilaterally Cardio Rate: regular rate Rhythm: regular rhythm Heart sounds: S1 normal heart sound present, S2 normal heart sound present, no gallops, no murmurs and no rubs GI Inspection: No distended Palpation (GI): Soft to palpation and nontender Auscultation: normal bowel sounds Skin General skin exam: other (Warm and dry) Neuro General: patient oriented x3 and CN's II-XI intact bilaterally Cranial nerves: Yes Equal, round and reactive pupils present Extrem General: Yes no pedal edema Psych Affect: normal affect Attitude: cooperative Medical Decision Making MDM Narrative Medical decision making narrative: Patient with history of anxiety and asthma, presents appearing very anxious after she had been out in the rain yesterday and felt that she had gotten sick. Patient had normal lung exam, normal chest x-ray. Patient was given albuterol nebulizer treatment, Ativan and subsequently her heart rate improved she has fallen asleep. Patient is written for discharge. Labs are unremarkable. COVID negative Lab Data Result diagrams: 11/06/21 13:12 11/06/21 13:12 Labs: Lab Results 11/06/21 11/06/21 11/06/21 Range/Units 13:12 13:12 13:12 WBC 6.0 (4.8-10.8) X10*3/uL RBC 4.33 (4.20-5.50) X10*6/uL Hgb 12.1 (12.0-16.0) g/dl Hct 36.5 L (37.0-47.0) % MCV 84.3 (80.0-98.0) fL MCH 27.9 (27.0-33.0) pg MCHC 33.2 (31.0-35.0) g/dl RDW 13.0 (11.0-16.0) % Plt Count 122 L D (160-400) X10*3/uL MPV 11.4 (9.4-12.3) fL Immature Gran % (Auto) 0.3 (0.0-0.4) % Neut % (Auto) 84.4 H (45-73) % Lymph % (Auto) 9.8 L (20-40) % [place] % (Auto) 5.3 (2-11) % Eos % (Auto) 0.0 (0-4) % Baso % (Auto) 0.2 (0-2) % Lymph # (Auto) 0.6 L (1.2-4.9) X10*3/uL [place] # (Auto) 0.3 (0.1-1.2) X10*3/uL Eos # (Auto) 0.0 (0.0-0.4) X10*3/uL Baso # (Auto) 0.0 (0.0-0.2) X10*3/uL Abs Immat Gran (auto) 0.02 (0.00-0.03) X10*3/uL Absolute Neuts (auto) 5.1 (2.0-8.3) x10*3/uL Absolute Nucleated RBC 0.000 (0.0-0.012) X10*3/uL Nucleated RBC % (auto) 0.0 (0.0-0.2) /100WBC Sodium 136 (135-145) mmol/L Potassium 3.3 D (3.3-5.1) mmol/L Chloride 105 (96-108) mmol/L Carbon Dioxide 23 (22-29) mmol/L Anion Gap 11 L (12-20) BUN 9 (9-16) mg/dL Creatinine 0.75 (0.5-1.4) mg/dL Estim Creat Clear Calc 76.4 Estimated GFR > 60 Random Glucose 73 (60-115) mg/dL Calcium 9.4 (8.4-10.2) mg/dL Troponin I High Sens < 3.5 (<3.5-17.0) ng/L B-Natriuretic Peptide 24 (<100) pg/mL COVID-19 ([facility]ENN[facility]ER) (Negative) COVID-19 Clin Com 11/06/21 Range/Units 13:12 WBC (4.8-10.8) X10*3/uL RBC (4.20-5.50) X10*6/uL Hgb (12.0-16.0) g/dl Hct (37.0-47.0) % MCV (80.0-98.0) fL MCH (27.0-33.0) pg MCHC (31.0-35.0) g/dl RDW (11.0-16.0) % Plt Count (160-400) X10*3/uL MPV (9.4-12.3) fL Immature Gran % (Auto) (0.0-0.4) % Neut % (Auto) (45-73) % Lymph % (Auto) (20-40) % [place] % (Auto) (2-11) % Eos % (Auto) (0-4) % Baso % (Auto) (0-2) % Lymph # (Auto) (1.2-4.9) X10*3/uL [place] # (Auto) (0.1-1.2) X10*3/uL Eos # (Auto) (0.0-0.4) X10*3/uL Baso # (Auto) (0.0-0.2) X10*3/uL Abs Immat Gran (auto) (0.00-0.03) X10*3/uL Absolute Neuts (auto) (2.0-8.3) x10*3/uL Absolute Nucleated RBC (0.0-0.012) X10*3/uL Nucleated RBC % (auto) (0.0-0.2) /100WBC Sodium (135-145) mmol/L Potassium (3.3-5.1) mmol/L Chloride (96-108) mmol/L Carbon Dioxide (22-29) mmol/L Anion Gap (12-20) BUN (9-16) mg/dL Creatinine (0.5-1.4) mg/dL Estim Creat Clear Calc Estimated GFR Random Glucose (60-115) mg/dL Calcium (8.4-10.2) mg/dL Troponin I High Sens (<3.5-17.0) ng/L B-Natriuretic Peptide (<100) pg/mL COVID-19 ([facility]ENN[facility]ER) Negative (Negative) COVID-19 Clin Com See Note Imaging Data Chest x-ray: Radiologist's impression: IMPRESSION: Unremarkable examination. ? ECG Data Attestation: I personally reviewed and interpreted this ECG as follows: Interpretation: Sinus tachycardia with a rate of 118. Left atrial enlargement. No concerning ST elevation or depression. Normal QRS axis. Discharge Plan Discharge Clinical Impression: Anxiety, Dyspnea Instructions: Anxiety (ED) Additional Instructions: Follow-up with your primary care physician. Return for any new or worsened symptoms. Your COVID test was negative. Your chest x-ray was normal. You did not have any wheezing on exam. Prescriptions: No Action cyclobenzaprine 10 mg tablet 10 mg PO TID PRN (Reason: muscle spasm) Qty: 14 0RF promethazine 25 mg suppository 25 mg LA Q6H PRN (Reason: nausea and vomiting) Qty: 12 0RF ondansetron 4 mg tablet,disintegrating 4 mg PO Q8H PRN (Reason: nausea and vomiting) Qty: 20 0RF ondansetron 4 mg tablet,disintegrating 4 mg PO Q8H PRN (Reason: nausea and vomiting) Qty: 7 0RF omeprazole 40 mg capsule,delayed release(DR/EC) 40 mg PO DAILY Qty: 90 3RF Citrucel 500 mg tablet 500 mg PO DAILY Qty: 30 2RF Rx Instructions: take it with full glass of water dicyclomine 10 mg capsule 10 mg PO TID Qty: 90 2RF
[2021-11-06] MEDS: LORazepam 2 MG/ML VIAL 1 MG IVPUSH (11:57)
[2021-11-06 12:00] VITALS: PULSE 84; RESP 20; O2SAT 97
[2021-11-06] MEDS: Albuterol/Iprat 2.5/0.5MG 3 ML AMPUL.NEB INHALE (12:00)
[2021-11-06 13:16] LABS: MANUAL DIFF FLAG NO
[2021-11-06 13:24] LABS: Basophils Percent Auto 0.2 % (0-2); Hematocrit 36.5 % (37.0-47.0); Hemoglobin 12.1 g/dl (12.0-16.0); Imm Gran Abs Auto 0.02 X10*3/uL (0.00-0.03); Imm Gran Pct Auto 0.3 % (0.0-0.4); Lymphocytes Absolute Auto 0.6 X10*3/uL (1.2-4.9); Lymphocytes Percent Auto 9.8 % (20-40); Mean Corpuscular HGB Conc 33.2 g/dl (31.0-35.0); Mean Corpuscular Hemoglobin 27.9 pg (27.0-33.0); Mean Corpuscular Volume 84.3 fL (80.0-98.0); Mean Platelet Volume 11.4 fL (9.4-12.3); Monocytes Absolute Auto 0.3 X10*3/uL (0.1-1.2); Monocytes Percent Auto 5.3 % (2-11); Neutrophils Absolute Auto 5.1 x10*3/uL (2.0-8.3); Neutrophils Percent Auto 84.4 % (45-73); Red Blood Count 4.33 X10*6/uL (4.20-5.50)
[2021-11-06 13:26] LABS: Platelet Count 122 X10*3/uL (160-400)
[2021-11-06 13:37] LABS: Anion Gap 11 (12-20); Blood Urea Nitrogen 9 mg/dL (9-16); Calcium 9.4 mg/dL (8.4-10.2); Carbon Dioxide 23 mmol/L (22-29); Chloride 105 mmol/L (96-108); Creatinine Clr Calc Pharmacy 76.4; Estimated Glomerular Filt Rate > 60; Glucose Random 73 mg/dL (60-115); Potassium 3.3 mmol/L (3.3-5.1); Sodium 136 mmol/L (135-145)
[2021-11-06 13:42] VITALS: BP 100/55; PULSE 116; RESP 20; TEMP 37; O2SAT 96
[2021-11-06 13:43] LABS: B Type Natriuretic Peptide 24 pg/mL (<100); Troponin-I High Sensitivity < 3.5 ng/L (<3.5-17.0)
[2021-11-06 13:46] LABS: COVID-19 Test Negative (Negative)
[2021-11-06 16:00] VITALS: BP 117/66; PULSE 115; RESP 16; TEMP 37.8; O2SAT 97
== END 2021-11-06 17:20 | disposition home or self-care (01) ==
PROVIDERS: Emergency Provider Emergency Medicine
DX: R06.00 Dyspnea, unspecified (principal); F41.9 Anxiety disorder, unspecified; R51.9 Headache, unspecified; J45.909 Unspecified asthma, uncomplicated; Z20.822 Contact with and (suspected) exposure to COVID-19
CPT/HCPCS: 36415; 71045; 80048; 83880; 84484; 85025; 87635; 93005; 94640; 96374; 99284; J2060

== ENCOUNTER 2022-01-12 14:22 | Emergency (ER) | payer MEDICAID, SELFPAY ==
--- NOTE | ~2022-01-12 | US_ITS ---
EXAMINATION: US ABDOMEN LIMITED CLINICAL INFORMATION: Right upper quadrant pain. COMPARISON: None TECHNIQUE: Real-time imaging of the right upper quadrant abdominal viscera. FINDINGS: Limited exam due to tachypnea and a unable to hold breath. PANCREAS: Normal. LIVER: There is an echogenic focus in the right hepatic lobe without shadowing. The liver is normal in size. The liver contour is normal. Parenchymal echogenicity is normal. No focal hepatic lesion. There is no intrahepatic biliary duct dilatation seen. GALLBLADDER: There is echogenic mobile sludge suspected. The gallbladder is physiologically distended without evidence of stones, polyps, wall thickening or pericholecystic fluid. COMMON BILE DUCT: Normal in caliber measuring 0.2 cm in diameter. RIGHT KIDNEY: Normal. No hydronephrosis. No renal calculi or focal parenchymal lesions. The kidney measures 8.9 cm in maximum dimension. FREE FLUID: None. US/US abdomen limited IMPRESSION: Echogenic gallbladder sludge without wall thickening. Punctate echogenic focus right hepatic lobe. Otherwise the liver is unremarkable.
[2022-01-12 14:27] VITALS: BP 110/70; BP 118/71; PULSE 70; PULSE 74; RESP 18; TEMP 36.4; O2SAT 100; O2SAT 99; BMI 24.2
[2022-01-12 16:26] LABS: MANUAL DIFF FLAG NO
[2022-01-12 16:27] LABS: Basophils Percent Auto 0.3 % (0-2); Eosinophils Percent Auto 0.2 % (0-4); Hemoglobin 12.2 g/dl (12.0-16.0); Imm Gran Abs Auto 0.03 X10*3/uL (0.00-0.03); Imm Gran Pct Auto 0.3 % (0.0-0.4); Lymphocytes Absolute Auto 0.9 X10*3/uL (1.2-4.9); Lymphocytes Percent Auto 8.7 % (20-40); Mean Corpuscular Hemoglobin 27.9 pg (27.0-33.0); Mean Corpuscular Volume 84.5 fL (80.0-98.0); Mean Platelet Volume 11.8 fL (9.4-12.3); Monocytes Absolute Auto 0.3 X10*3/uL (0.1-1.2); Monocytes Percent Auto 3.4 % (2-11); Neutrophils Absolute Auto 8.5 x10*3/uL (2.0-8.3); Neutrophils Percent Auto 87.1 % (45-73); Platelet Count 182 X10*3/uL (160-400); Red Blood Count 4.38 X10*6/uL (4.20-5.50); Red Cell Distribution Width 13.8 % (11.0-16.0); White Blood Count 9.7 X10*3/uL (4.8-10.8)
--- NOTE | 2022-01-12 16:32 | ED.ABDPAIN ---
HPI - Abdominal Pain General Chief Complaint: Nausea/Vomiting/Diarrhea Stated Complaint: NAUSEA VOMITING Time Seen by Provider: 01/12/22 14:45 Source: patient Mode of arrival: ambulatory Limitations: no limitations History of Present Illness HPI narrative: 41-year-old female with past medical history significant for depression, anxiety, intermittent asthma, and cyclical vomiting, presents to the with vomiting since 05:00 o'clock, starting after eating a [employer] hamburger at work. Vomiting is minimal with clear and bilious appearance. She reports a similar episode occurring to 3 months ago that was relieved with IV medication?. Her pain is in the epigastrium rated as 10/10, and does not radiate. She reports nothing makes the vomiting better or worse. She reports episodes of dizziness before and during this event. She denies any sick contacts, fever, chills, shortness of breath, palpitations, difficulty breathing, and chest pain. Reports smoking marijuana last night Related Data Previous Rx's Medication Instructions Recorded cyclobenzaprine 10 mg tablet 10 mg PO TID PRN muscle spasm #14 05/16/20 tabs ondansetron 4 mg disintegrating 4 mg PO Q8H PRN nausea and 06/09/21 tablet vomiting #7 tabs ondansetron 4 mg disintegrating 4 mg PO Q8H PRN nausea and 06/10/21 tablet vomiting #20 tabs promethazine 25 mg rectal 25 mg [place] Q6H PRN nausea and 06/10/21 suppository vomiting #12 ea methylcellulose (laxative) 500 mg 500 mg PO DAILY #30 tabs 07/09/21 tablet (Citrucel) omeprazole 40 mg capsule,delayed 40 mg PO DAILY #90 caps 07/09/21 release dicyclomine 10 mg capsule 10 mg PO TID #90 caps 11/13/21 ondansetron 4 mg disintegrating 4 mg PO ONCE PRN nausea and 01/12/22 tablet vomiting #10 tabs Allergies Allergy/AdvReac Type Severity Reaction Status Date / Time heparin [HEPARIN] Allergy Severe HIT Verified 11/06/21 11:22 morphine [MORPHINE] Allergy Unknown N/A Verified 11/06/21 11:22 Review of Systems Review of Systems Constitutional : No Weight loss, No Fever, No Chills, No Fatigue, No Malaise ENT/Mouth : No sore throat, No Rhinorrhea Eyes: No Eye Pain, No Swelling, No Redness Cardiovascular : No Chest Pain, No SOB, No Dyspnea on Exertion, No Orthopnea, No Edema, No Palpitations Respiratory : No Cough, No Sputum, No Wheezing Gastrointestinal : + Nausea, + Vomiting, No Diarrhea, No Constipation, No abdominal Pain, No Hematochezia, No Melena Genitourinary : No Dysuria, No Urinary Frequency, No Hematuria, Musculoskeletal : No joint pain, No Myalgias, No Joint Swelling Skin : No Skin Lesions, No rash Neuro : No Weakness, No Numbness, No Dizziness, No Headache Psych : + Anxiety/Panic, + Depression All other systems reviewed and are negative Yes all other systems are reviewed and are negative [facility] Past Medical History Attestation statement: The following information was validated with the patient. Source: old records reviewed and nursing notes reviewed Medical History Marijuana abuse Social History Social History Alcohol intake: current Alcohol intake frequency: holidays/special occasions only Substance Use Type: Marijuana Advance Directives: No Advance Directives Information Provided: No Physical Exam ED Vital Signs: Vital Signs - 24 hr 01/12/22 14:27 Temperature 97.6 F Pulse Rate 70 Respiratory Rate 18 Blood Pressure 118/71 Pulse Oximetry 100 Oxygen Delivery Method Room Air BMI result Body Mass Index 24.2 VSS Appearance: Alert.? Oriented X3. Vomiting and wrenching, No acute distress.? Head: Normocephalic, atraumatic, no step-offs or deformities Eyes: Pupils equal, round and reactive to light.? ENT: Pharynx normal.? Neck: Normal inspection.? Neck supple.? CVS: Normal heart rate and rhythm.? Pulses normal.? Respiratory: No respiratory distress.? Breath sounds normal.? Abdomen: Soft, and Diffusely tender.? Skin: Skin warm and diaphoretic.? Normal skin color.? Normal skin turgor.? Extremities: No lower extremity edema.? No calf ttp. 5/5 strength to bilateral upper and lower extremities Back: No midline tenderness, no C-spine tenderness, full range of motion, no CVA tenderness bilaterally Neuro: Oriented X 3.? No motor deficit.? No sensory deficit. CN 2-12 intact Course Reevaluation(s) Reevaluation #1: CBC appears to be around patient's baseline. Chemistry with no acute electrolyte abnormalities requiring intervention. HCG negative. Lipase normal. Ultrasound of the abdomen with an echogenic gallbladder sludge without wall thickening, punctate echogenic focus of the right hepatic lobe, upon re-evaluation patient is not tender to palpation to the right upper quadrant, she is no longer vomiting, patient resting, receiving IV hydration. Likely cyclic vomiting. I do not suspect acute cholecystitis, appendicitis, pancreatitis. Time: 19:02 Reevaluation #2: Patient continues to comfortably rest. At this time I suspect abdominal pain/nausea and vomiting was secondary to cyclic vomiting, advised patient to stop smoking marijuana as this is likely causing the cyclic vomiting. At this time patient will be discharged home with PCP follow-up. Advised her to return with new or worsening symptoms Time: 20:03 Reevaluation #3: Patient vomiting again. Therefore patient could not be discharged ordered Benadryl and Reglan. Pending improvement in symptoms. Sign-out given to Suzy SPICER Time: 20:48 MDM - Abdominal Pain MDM Narrative Medical decision making narrative: 16:22 41-year-old female presents with vomiting since 05:00 o'clock, starting after eating a [employer] hamburger. Physical exam: Diffuse abdominal tenderness, diaphoretic. Unlikely diverticulitis, appendicitis, pancreatitis. Likely cyclic vomiting. We will rule out cholecystitis. Plan: Will order basic labs, urine hCG, urinary toxicology, US. Medical Records Attestation: I reviewed the patient's medical records. Lab Data Attestation: I reviewed the patient's lab results. Result diagrams: 01/12/22 16:22 01/12/22 16:22 Labs: Lab Results 01/12/22 01/12/22 01/12/22 Range/Units 16:22 16:22 16:22 WBC 9.7 (4.8-10.8) X10*3/uL RBC 4.38 (4.20-5.50) X10*6/uL Hgb 12.2 (12.0-16.0) g/dl Hct 37.0 (37.0-47.0) % MCV 84.5 (80.0-98.0) fL MCH 27.9 (27.0-33.0) pg MCHC 33.0 (31.0-35.0) g/dl RDW 13.8 (11.0-16.0) % Plt Count 182 D (160-400) X10*3/uL MPV 11.8 (9.4-12.3) fL Immature Gran % (Auto) 0.3 (0.0-0.4) % Neut % (Auto) 87.1 H (45-73) % Lymph % (Auto) 8.7 L (20-40) % [place] % (Auto) 3.4 (2-11) % Eos % (Auto) 0.2 (0-4) % Baso % (Auto) 0.3 (0-2) % Lymph # (Auto) 0.9 L (1.2-4.9) X10*3/uL [place] # (Auto) 0.3 (0.1-1.2) X10*3/uL Eos # (Auto) 0.0 (0.0-0.4) X10*3/uL Baso # (Auto) 0.0 (0.0-0.2) X10*3/uL Abs Immat Gran (auto) 0.03 (0.00-0.03) X10*3/uL Absolute Neuts (auto) 8.5 H (2.0-8.3) x10*3/uL Absolute Nucleated RBC 0.000 (0.0-0.012) X10*3/uL Nucleated RBC % (auto) 0.0 (0.0-0.2) /100WBC Sodium Cancelled 135 Potassium Cancelled 4.6 D Chloride Cancelled 104 Carbon Dioxide Cancelled 18 L Anion Gap Cancelled 18 BUN Cancelled 11 Creatinine Cancelled 0.89 Estim Creat Clear Calc Cancelled 63.8 Estimated GFR Cancelled > 60 Random Glucose Cancelled 111 Calcium Cancelled 9.3 Lipase 26 (8-78) U/L Beta HCG, Quant < 2 mIU/mL Critical Care Time Critical Care Time Critical Care Time: No Discharge Plan Discharge Clinical Impression: Cyclical vomiting Patient Disposition: Home, Self-Care Instructions: Acute Nausea and Vomiting (ED) Additional Instructions: Take your medications as prescribed. If you were prescribed antibiotics today, it is important that you take your medication to their entirety, do not skip any doses, do not finish them early. Follow-up with your primary care provider this week. Return to the emergency department with new or worsening symptoms. Such as fevers, chills, chest pain, shortness of breath, nausea, vomiting, dizziness, headache, vision changes, lethargy In case of emergency call 911 Stop smoking marijuana as this is likely causing her nausea and vomiting. US/US abdomen limited IMPRESSION: Echogenic gallbladder sludge without wall thickening. Punctate echogenic focus right hepatic lobe. Otherwise the liver is unremarkable. Prescriptions: New ondansetron 4 mg tablet,disintegrating 4 mg PO ONCE PRN (Reason: nausea and vomiting) Qty: 10 0RF No Action dicyclomine 10 mg capsule 10 mg PO TID Qty: 90 2RF cyclobenzaprine 10 mg tablet 10 mg PO TID PRN (Reason: muscle spasm) Qty: 14 0RF promethazine 25 mg suppository 25 mg [place] Q6H PRN (Reason: nausea and vomiting) Qty: 12 0RF ondansetron 4 mg tablet,disintegrating 4 mg PO Q8H PRN (Reason: nausea and vomiting) Qty: 20 0RF ondansetron 4 mg tablet,disintegrating 4 mg PO Q8H PRN (Reason: nausea and vomiting) Qty: 7 0RF omeprazole 40 mg capsule,delayed release(DR/EC) 40 mg PO DAILY Qty: 90 3RF Citrucel 500 mg tablet 500 mg PO DAILY Qty: 30 2RF Rx Instructions: take it with full glass of water Referrals: [facility] [Primary Care Provider] - 2 days Stand Alone Forms: Work/School Release
[2022-01-12 16:52] LABS: Anion Gap 18 (12-20); Blood Urea Nitrogen 11 mg/dL (9-16); Calcium 9.3 mg/dL (8.4-10.2); Carbon Dioxide 18 mmol/L (22-29); Chloride 104 mmol/L (96-108); Creatinine Clr Calc Pharmacy 63.8; Estimated Glomerular Filt Rate > 60; Glucose Random 111 mg/dL (60-115); Lipase 26 U/L (8-78); Potassium 4.6 mmol/L (3.3-5.1); Sodium 135 mmol/L (135-145)
[2022-01-12 16:53] LABS: HCG Quantitative < 2 mIU/mL
[2022-01-12] MEDS: ondansetron HCL 4 MG/2 ML VIAL IVPUSH (17:38)
[2022-01-12] MEDS: 0.9 % Sodium Chloride 1,000 ML 999 ML IV ×2 (17:38→19:45)
[2022-01-12] MEDS: LORazepam 2 MG/ML VIAL 1 MG IVPUSH (17:38)
[2022-01-12] MEDS: Metoclopramide HCl 10 MG/2 ML VIAL IVPUSH (21:05)
[2022-01-12] MEDS: diphenhydrAMINE HCL 50 MG/ML VIAL IVPUSH (21:05)
[2022-01-12 21:06] VITALS: BP 95/52; PULSE 88; RESP 16; TEMP 36.8; O2SAT 98
[2022-01-12 21:31] VITALS: BP 92/50; PULSE 83; TEMP 36.6; O2SAT 97
[2022-01-12 22:17] VITALS: BP 87/54; PULSE 63; RESP 14; TEMP 36.9; O2SAT 99
[2022-01-12 22:58] VITALS: BP 105/41; PULSE 55; RESP 16; TEMP 36.5; O2SAT 98
== END 2022-01-12 23:01 | disposition home or self-care (01) ==
PROVIDERS: Physician Assistant; Emergency Provider Emergency Medicine Emergency Medical Services
DX: R11.15 Cyclical vomiting syndrome unrelated to migraine (principal); F12.10 Cannabis abuse, uncomplicated; J45.20 Mild intermittent asthma, uncomplicated
CPT/HCPCS: 36415; 76705; 80048; 83690; 84702; 85025; 96361; 96374; 96375; 99284; J1200; J2060; J2405; J2765

== ENCOUNTER 2022-01-13 23:18 | Emergency (ER) | payer MEDICAID, SELFPAY ==
[2022-01-13 23:23] VITALS: BP 116/73; PULSE 68; O2SAT 100
[2022-01-13 23:30] VITALS: BP 129/69; PULSE 84; RESP 20; TEMP 36.6; O2SAT 99; BMI 28.1
--- NOTE | 2022-01-13 23:30 | PC.NURSE ---
pt dry heaving and coughing in triage, pt refusing to answer questions even when she is not dry heaving. pt gave minimal hx other than she ate rice and beans. pt leaning over in the wheelchair in an unsafe manner, pt asked to sit upright, pt continued to begin to slide off the chair before being repositioned. pt offered zofran and she refused stating that she doesnt want it despite being educated on its purpose
--- NOTE | 2022-01-14 01:15 | PC.NURSE ---
PATIENT REFUSED TO GIVE URINE SAMPLE ,RN AWARE .
[2022-01-14 01:25] LABS: Basophils Percent Auto 0.2 % (0-2); Eosinophils Percent Auto 0.2 % (0-4); Hematocrit 34.7 % (37.0-47.0); Hemoglobin 11.6 g/dl (12.0-16.0); Imm Gran Abs Auto 0.05 X10*3/uL (0.00-0.03); Imm Gran Pct Auto 0.4 % (0.0-0.4); Lymphocytes Absolute Auto 1.3 X10*3/uL (1.2-4.9); Lymphocytes Percent Auto 9.6 % (20-40); MANUAL DIFF FLAG NO; Mean Corpuscular HGB Conc 33.4 g/dl (31.0-35.0); Mean Corpuscular Hemoglobin 28.3 pg (27.0-33.0); Mean Corpuscular Volume 84.6 fL (80.0-98.0); Mean Platelet Volume 11.4 fL (9.4-12.3); Monocytes Absolute Auto 0.4 X10*3/uL (0.1-1.2); Monocytes Percent Auto 3.4 % (2-11); Neutrophils Absolute Auto 11.3 x10*3/uL (2.0-8.3); Neutrophils Percent Auto 86.2 % (45-73); Platelet Count 174 X10*3/uL (160-400); Red Cell Distribution Width 13.9 % (11.0-16.0); White Blood Count 13.1 X10*3/uL (4.8-10.8)
[2022-01-14 01:48] LABS: Alanine Aminotransferase 20 U/L (0-31); Albumin Level 4.2 g/dL (3.5-5.0); Alkaline Phosphatase 59 U/L (39-117); Anion Gap 13 (12-20); Aspartate Amino Transferase 25 U/L (5-31); Bilirubin Direct 0.3 mg/dL (0.0-0.5); Bilirubin Total 0.6 mg/dL (0.0-1.0); Blood Urea Nitrogen 8 mg/dL (9-16); Calcium 8.7 mg/dL (8.4-10.2); Carbon Dioxide 23 mmol/L (22-29); Chloride 107 mmol/L (96-108); Creatinine Clr Calc Pharmacy 71.4; Estimated Glomerular Filt Rate > 60; Glucose Random 131 mg/dL (60-115); Lipase 33 U/L (8-78); Potassium 3.5 mmol/L (3.3-5.1); Sodium 139 mmol/L (135-145); Total Protein 6.8 g/dL (6.5-8.0)
[2022-01-14 03:09] VITALS: BP 109/52; PULSE 60; RESP 16; TEMP 36.9; O2SAT 100
--- NOTE | 2022-01-14 03:17 | ED_ITS ---
HPI - Nausea/Vomiting/Diarrhea General Chief complaint: Nausea/Vomiting/Diarrhea Stated complaint: N/V AFTER EATING DINNER Time Seen by Provider: 01/14/22 00:07 Source: patient Mode of arrival: ambulatory Limitations: no limitations History of Present Illness HPI Narrative: patient has been here multiple times for cyclical vomiting including yesterday, now comes in wretching and vomiting MD elicited complaint: nausea and vomiting Pertinent past history: cyclical vomiting Onset (ago): day(s) Description of vomiting: watery and bilious Associated nausea: Yes Associated abdominal pain: Yes Severity: moderate Associated symptoms: nausea/vomiting Related Data Previous Rx's Medication Instructions Recorded cyclobenzaprine 10 mg tablet 10 mg PO TID PRN muscle spasm #14 05/16/20 tabs ondansetron 4 mg disintegrating 4 mg PO Q8H PRN nausea and 06/09/21 tablet vomiting #7 tabs ondansetron 4 mg disintegrating 4 mg PO Q8H PRN nausea and 06/10/21 tablet vomiting #20 tabs promethazine 25 mg rectal 25 mg ND Q6H PRN nausea and 06/10/21 suppository vomiting #12 ea methylcellulose (laxative) 500 mg 500 mg PO DAILY #30 tabs 07/09/21 tablet (Citrucel) omeprazole 40 mg capsule,delayed 40 mg PO DAILY #90 caps 07/09/21 release dicyclomine 10 mg capsule 10 mg PO TID #90 caps 11/13/21 ondansetron 4 mg disintegrating 4 mg PO ONCE PRN nausea and 01/12/22 tablet vomiting #10 tabs promethazine 25 mg tablet 25 mg PO Q4-6H PRN nausea and 01/14/22 vomiting #20 tabs Allergies Allergy/AdvReac Type Severity Reaction Status Date / Time heparin [HEPARIN] Allergy Severe HIT Verified 11/06/21 11:22 morphine [MORPHINE] Allergy Unknown N/A Verified 11/06/21 11:22 Review of Systems Constitutional: Constitutional: Reports no additional constitutional complaints Eyes: Eyes: Reports no additional eye complaints ENT: Denies dizziness Cardiovascular: Cardiovascular: Reports no additional cardiovascular complaints Respiratory: Respiratory: Reports as per HPI Gastrointestinal: Gastrointestinal: Reports nausea Genitourinary: Genitourinary: Reports no additional female genitourinary complaints Musculoskeletal: Musculoskeletal: Reports no additional musculoskeletal complaints Integumentary/Breasts: Skin/Breast: Denies rash Neurologic: Reports system reviewed and no additional complaints, except as documented, Denies dizziness and Denies Sensory deficit (Neuro) Psychiatric: Psychiatric: Denies anxiety PMFSH Past Medical History Medical History Marijuana abuse Social History Social History Alcohol intake: unknown Patient Tobacco Use Status: Never used Tobacco Use of substances other than those prescribed or required for medical reasons: No Substance Use Type: Marijuana Advance Directives: No Physical Exam Vital Signs: Vital Signs: Last Vital Signs Temp 98.3 F 01/14/22 07:00 Pulse 89 01/14/22 07:00 Resp 14 01/14/22 07:00 BP 102/59 L 01/14/22 07:00 Pulse Ox 97 01/14/22 07:00 O2 Del Method 01/14/22 07:00 BMI result Body Mass Index 28.1 Const: Other: female writhing and vomiting rolling around on the stretcher Nutritional Appearance: average body habitus Orientation/consciousness: oriented to person and patient oriented x3 Limitations: no limitations HEENT: Head: Yes normal to inspection Ears: external ears normal General nose exam: Normal external nose present Mouth: Normal oral and palatal mucosa present and oropharynx normal Throat: Yes posterior oropharynx normal Eyes: General: appearance normal, both eyes and all related structures Neck: Other: supple Neck: Yes normal visual inspection Chest: Chest palpation & inspection: normal inspection of the chest Resp: Auscultation: clear to auscultation bilaterally Cardio: Jugular venous distension: no JVD Rate: regular rate Rhythm: regular rhythm Heart sounds: S1 normal heart sound present and S2 normal heart sound present GI: Inspection: Yes normal to inspection Palpation (GI): Soft to palpation, nontender and No hepatosplenomegaly present Auscultation: normal bowel sounds : General: Yes no CVA tenderness Back/Spine/Pelvis: Back: no CVA tenderness Skin: General skin exam: no rashes or lesions noted Neuro: General: oriented to person and patient oriented x3 Cranial nerves: Yes CN's II-XII intact bilaterally Motor exam (neuro): 5/5 motor strength present throughout Sensory Exam: No Sensory deficit (Neuro) Extrem: General: Yes normal to inspection Psych: Appearance: grossly normal Course Reevaluation(s) Reevaluation #1: no further vomiting will dc home with phenergan Time: 08:09 MDM - Nausea/Vomiting/Diarrhea Lab Data Result diagrams: 01/14/22 01:21 01/14/22 01:21 Labs: Lab Results 01/14/22 01/14/22 Range/Units 01:21 01:21 WBC 13.1 H (4.8-10.8) X10*3/uL RBC 4.10 L (4.20-5.50) X10*6/uL Hgb 11.6 L (12.0-16.0) g/dl Hct 34.7 L (37.0-47.0) % MCV 84.6 (80.0-98.0) fL MCH 28.3 (27.0-33.0) pg MCHC 33.4 (31.0-35.0) g/dl RDW 13.9 (11.0-16.0) % Plt Count 174 (160-400) X10*3/uL MPV 11.4 (9.4-12.3) fL Immature Gran % (Auto) 0.4 (0.0-0.4) % Neut % (Auto) 86.2 H (45-73) % Lymph % (Auto) 9.6 L (20-40) % [place] % (Auto) 3.4 (2-11) % Eos % (Auto) 0.2 (0-4) % Baso % (Auto) 0.2 (0-2) % Lymph # (Auto) 1.3 (1.2-4.9) X10*3/uL [place] # (Auto) 0.4 (0.1-1.2) X10*3/uL Eos # (Auto) 0.0 (0.0-0.4) X10*3/uL Baso # (Auto) 0.0 (0.0-0.2) X10*3/uL Abs Immat Gran (auto) 0.05 H (0.00-0.03) X10*3/uL Absolute Neuts (auto) 11.3 H (2.0-8.3) x10*3/uL Absolute Nucleated RBC 0.000 (0.0-0.012) X10*3/uL Nucleated RBC % (auto) 0.0 (0.0-0.2) /100WBC Sodium 139 (135-145) mmol/L Potassium 3.5 D (3.3-5.1) mmol/L Chloride 107 (96-108) mmol/L Carbon Dioxide 23 (22-29) mmol/L Anion Gap 13 (12-20) BUN 8 L (9-16) mg/dL Creatinine 0.78 (0.5-1.4) mg/dL Estim Creat Clear Calc 71.4 Estimated GFR > 60 Random Glucose 131 H (60-115) mg/dL Calcium 8.7 D (8.4-10.2) mg/dL Total Bilirubin 0.6 (0.0-1.0) mg/dL Direct Bilirubin 0.3 (0.0-0.5) mg/dL AST 25 D (5-31) U/L ALT 20 (0-31) U/L Alkaline Phosphatase 59 (39-117) U/L Total Protein 6.8 (6.5-8.0) g/dL Albumin 4.2 (3.5-5.0) g/dL Lipase 33 (8-78) U/L Discharge Plan Discharge Clinical Impression: Cyclical vomiting Patient Disposition: Home, Self-Care Instructions: Acute Nausea and Vomiting (ED) Prescriptions: New promethazine 25 mg tablet 25 mg PO Q4-6H PRN (Reason: nausea and vomiting) Qty: 20 0RF No Action dicyclomine 10 mg capsule 10 mg PO TID Qty: 90 2RF cyclobenzaprine 10 mg tablet 10 mg PO TID PRN (Reason: muscle spasm) Qty: 14 0RF promethazine 25 mg suppository 25 mg ND Q6H PRN (Reason: nausea and vomiting) Qty: 12 0RF ondansetron 4 mg tablet,disintegrating 4 mg PO Q8H PRN (Reason: nausea and vomiting) Qty: 20 0RF ondansetron 4 mg tablet,disintegrating 4 mg PO Q8H PRN (Reason: nausea and vomiting) Qty: 7 0RF ondansetron 4 mg tablet,disintegrating 4 mg PO ONCE PRN (Reason: nausea and vomiting) Qty: 10 0RF omeprazole 40 mg capsule,delayed release(DR/EC) 40 mg PO DAILY Qty: 90 3RF Citrucel 500 mg tablet 500 mg PO DAILY Qty: 30 2RF Rx Instructions: take it with full glass of water Referrals: [facility] [Primary Care Provider] - 5 days
[2022-01-14] MEDS: 0.9 % Sodium Chloride 1,000 ML 999 ML IVCONT ×2 (03:41→03:43)
[2022-01-14] MEDS: Haloperidol Lactate 5 MG/ML VIAL IVPUSH (06:52)
[2022-01-14] MEDS: diphenhydrAMINE HCL 50 MG/ML VIAL 25 MG IVPUSH (06:53)
[2022-01-14 07:00] VITALS: BP 102/59; PULSE 89; RESP 14; TEMP 36.8; O2SAT 97
[2022-01-14 08:22] VITALS: BP 104/63; PULSE 55; RESP 14; O2SAT 100
[2022-01-14 08:32] LABS: Appearance Urine HAZY; Color Urine YELLOW; Glucose Urine UA NEG (NEG); Leukocyte Esterase Urine NEG (NEG); Nitrite Urine NEG (NEG); Specific Gravity - Urine 1.015 (1.005-1.025); Urine Blood NEG (NEG); Urine Ketones 15 MG/DL (NEG); Urine Protein NEG (NEG-TRACE)
[2022-01-14 08:35] LABS: UPreg QC Valid YES; Urine Pregnancy NEGATIVE (NEGATIVE)
--- NOTE | 2022-01-14 08:35 | PC.NURSE ---
pt given work note for today only
[2022-01-14 08:46] LABS: Fentanyl, urine Not Detected (Not Detect)
[2022-01-14 08:56] LABS: Amphetamine Screen Urine Not Detected (Not Detect); Barbiturates, Urine Not Detected (Not Detect); Cannabinoid Screen Urine POSITIVE (Not Detect); Cocaine Screen Urine POSITIVE (Not Detect); Opiate Screen Urine Not Detected (Not Detect); Phencyclidine Screen Urine Not Detected (Not Detect)
[2022-01-15 07:02] LABS: Benzodiazepines Screen Urine NOT DETECTED (Not Detect)
== END 2022-01-14 08:35 | disposition home or self-care (01) ==
PROVIDERS: Nurse Practitioner Family; Emergency Provider Emergency Medicine
DX: R11.15 Cyclical vomiting syndrome unrelated to migraine (principal)
CPT/HCPCS: 36415; 80048; 80076; 80307; 81003; 81025; 83690; 85025; 96361; 96374; 96375; 99284; J1200; J2550

== ENCOUNTER 2022-04-13 10:55 | Emergency (ER) | payer MEDICAID, SELFPAY ==
[2022-04-13 11:45] VITALS: BP 105/87; PULSE 75; RESP 18; TEMP 36.5; O2SAT 100; BMI 22.4
[2022-04-13 12:06] LABS: MANUAL DIFF FLAG NO
[2022-04-13 12:07] LABS: Basophils Absolute Auto 0.1 X10*3/uL (0.0-0.2); Basophils Percent Auto 0.6 % (0-2); Eosinophils Absolute Auto 0.1 X10*3/uL (0.0-0.4); Eosinophils Percent Auto 1.6 % (0-4); Hematocrit 40.6 % (37.0-47.0); Imm Gran Abs Auto 0.02 X10*3/uL (0.00-0.03); Imm Gran Pct Auto 0.3 % (0.0-0.4); Lymphocytes Absolute Auto 1.7 X10*3/uL (1.2-4.9); Lymphocytes Percent Auto 21.1 % (20-40); Mean Corpuscular Hemoglobin 27.8 pg (27.0-33.0); Mean Corpuscular Volume 86.8 fL (80.0-98.0); Mean Platelet Volume 10.7 fL (9.4-12.3); Monocytes Absolute Auto 0.4 X10*3/uL (0.1-1.2); Monocytes Percent Auto 5.3 % (2-11); Neutrophils Absolute Auto 5.7 x10*3/uL (2.0-8.3); Neutrophils Percent Auto 71.1 % (45-73); Platelet Count 228 X10*3/uL (160-400); Red Blood Count 4.68 X10*6/uL (4.20-5.50); Red Cell Distribution Width 13.4 % (11.0-16.0)
[2022-04-13 12:24] LABS: Anion Gap 16 (12-20); Blood Urea Nitrogen 9 mg/dL (9-16); Calcium 9.5 mg/dL (8.4-10.2); Carbon Dioxide 27 mmol/L (22-29); Chloride 104 mmol/L (96-108); Creatinine Clr Calc Pharmacy 65.2; Estimated Glomerular Filt Rate > 60; Glucose Random 74 mg/dL (60-115); Potassium 4.3 mmol/L (3.3-5.1); Sodium 143 mmol/L (135-145)
--- NOTE | 2022-04-13 15:15 | ED.GENADULT ---
HPI - General Adult General Chief complaint: General Medical Stated complaint: Low blood pressure Time Seen by Provider: 04/13/22 15:13 Source: patient and court interpreter Mode of arrival: ambulatory Limitations: language barrier History of Present Illness HPI narrative: Patient is a 41 year old female presenting to the emergency department today with dizziness. Patient states that this morning she was at work and told that her blood pressure was low and she was feeling a little lightheaded. Patient states that her work told her to be evaluated. Patient states that this happens sometimes, when her blood pressure drops a little bit and then it gets better. Patient states that she feels better now. Patient denies any current dizziness, lightheadedness, abdominal pain, nausea, vomiting, fever, chills, blurry vision, double vision, loss of vision, chest pain, difficulty breathing, shortness of breath, back pain, night sweats, pain with urination, increased urinary frequency, increased urinary urgency, blood in her urine or stool, syncope or a near syncopal episode, recent trauma or falls, bowel incontinence, bladder incontinence, bowel retention, bladder retention, or any other complaints at this time. Onset (ago): hour(s) Severity: mild Severity scale (1-10): 2 Relieving factors: rest Exacerbating factors: none Associated symptoms: denies other symptoms Treatments prior to arrival: none Related Data Previous Rx's Medication Instructions Recorded cyclobenzaprine 10 mg tablet 10 mg PO TID PRN muscle spasm #14 05/16/20 tabs ondansetron 4 mg disintegrating 4 mg PO Q8H PRN nausea and 06/09/21 tablet vomiting #7 tabs ondansetron 4 mg disintegrating 4 mg PO Q8H PRN nausea and 06/10/21 tablet vomiting #20 tabs promethazine 25 mg rectal 25 mg [place] Q6H PRN nausea and 06/10/21 suppository vomiting #12 ea methylcellulose (laxative) 500 mg 500 mg PO DAILY #30 tabs 07/09/21 tablet (Citrucel) omeprazole 40 mg capsule,delayed 40 mg PO DAILY #90 caps 07/09/21 release dicyclomine 10 mg capsule 10 mg PO TID #90 caps 11/13/21 ondansetron 4 mg disintegrating 4 mg PO ONCE PRN nausea and 01/12/22 tablet vomiting #10 tabs promethazine 25 mg tablet 25 mg PO Q4-6H PRN nausea and 01/14/22 vomiting #20 tabs Allergies Allergy/AdvReac Type Severity Reaction Status Date / Time heparin [HEPARIN] Allergy Severe HIT Verified 04/13/22 11:44 morphine [MORPHINE] Allergy Unknown N/A Verified 04/13/22 11:44 Review of Systems Constitutional: Constitutional: Reports no additional constitutional complaints, Denies chills, Denies fever(s) and Denies night sweats Eyes: Eyes: Reports no additional eye complaints, Denies blurry vision, Denies change in vision, Denies diplopia, Denies eye discharge, Denies loss of vision and Denies eye pain ENT: Denies dizziness Cardiovascular: Cardiovascular: Reports no additional cardiovascular complaints, Denies chest pain, Denies lightheadedness, Denies Loss of Consciousness and Denies dyspnea Respiratory: Respiratory: Reports no additional respiratory complaints and Denies dyspnea Gastrointestinal: Gastrointestinal: Reports no additional gastrointestinal complaints, Denies abdominal pain, Denies melena, Denies hematochezia, Denies change in bowel habits and Denies change in stool character Genitourinary: Genitourinary: Denies hematuria, Denies urinary frequency, Denies dysuria, Denies urinary incontinence, Denies urinary hesitancy and Denies urinary urgency Musculoskeletal: Musculoskeletal: Reports no additional musculoskeletal complaints, Denies numbness and Denies tingling Neurologic: Denies dizziness, Denies loss of vision, Denies numbness and Denies tingling Psychiatric: Psychiatric: Reports no additional psychiatric complaints Endocrine: Endocrine: Reports no additional endocrine complaints Hematologic/Lymphatic: Hematologic/Lymphatic: Reports no additional hematologic/lymphatic complaints Allergic/Immunologic: Allergic/Immunologic: Reports no additional allergic/immunologic complaints [facility] Past Medical History Attestation statement: The following information was validated with the patient. Source: old records reviewed Medical History Anxiety Asthma Depressed Marijuana abuse Social History Social History Alcohol intake: unknown Patient Tobacco Use Status: Never used Tobacco Substance Use Type: Marijuana Advance Directives: No Advance Directives Information Provided: Yes Physical Exam ED Vital Signs: Vital Signs - 24 hr 04/13/22 11:45 Temperature 97.7 F Pulse Rate 75 Respiratory Rate 18 Blood Pressure 105/87 Pulse Oximetry 100 Oxygen Delivery Method Room Air BMI result Body Mass Index 22.4 Const General: cooperative, no acute distress, alert and awake Nutritional Appearance: well nourished Orientation/consciousness: patient oriented x3 Limitations: no limitations HENMT Head: Yes normal to inspection and Yes atraumatic Ears: hearing grossly normal bilaterally and external ears normal General nose exam: Normal external nose present, no nasal discharge noted and no epistaxis Face and sinus: Yes normal facial exam, No abrasion and No laceration Mouth: Normal oral and palatal mucosa present, no drooling and no muffled voice Eyes General: appearance normal, both eyes and all related structures Periorbital: periorbital findings normal Eyelids: Yes eyelids normal Conjunctivae: conjunctivae normal Pupils: Equal, round and reactive pupils present EOM: EOMs intact bilaterally Neck Neck: Yes normal visual inspection, Yes full ROM and Yes no lymphadenopathy Chest Chest palpation & inspection: normal inspection of the chest Resp Effort & Inspection: normal respiratory effort and able to speak in complete sentences Auscultation: clear to auscultation bilaterally Cardio Rate: regular rate Rhythm: regular rhythm GI Inspection: Yes normal to inspection Neuro General: patient oriented x3 and moves all extremities Cranial nerves: Yes Equal, round and reactive pupils present Cognition (Neuro): normal cognition Motor exam (neuro): 5/5 motor strength present throughout Sensory Exam: Normal double simultaneous stimulation for sensation Coordination: [id number] test normal Extrem General: Yes normal to inspection, Yes full ROM and Yes capillary refill normal Psych Appearance: grossly normal Mental Status: mental status grossly normal Affect: normal affect Attitude: cooperative Thought process: Normal thought process present Thought content: Normal thought content present Insight: Good insight present (Psych) Medical Decision Making [facility] Narrative Medical decision making narrative: Patient is a 41 year old female presenting to the emergency department today with resolved dizziness. Patient's physical exam was unremarkable. Patient's blood work was unremarkable. I explained my physical exam findings as well as all test results to the patient. I answered all questions asked by the patient. I stressed the importance of the patient taking her medication as prescribed. I stressed the importance of the patient following up with her primary care provider. I stressed the importance of the patient returning to the emergency department immediately if her symptoms were to worsen or if she were to develop any dizziness, shortness of breath, difficulty breathing, chest pain, blurry vision, loss of vision, nausea, vomiting, abdominal pain, fever, chills, back pain, or any other complaints. Patient verbalized agreement and understanding with this treatment plan and discharge. Medical Records Medical records reviewed: Yes I reviewed the patient's medical records. Lab Data Lab results reviewed: Yes I reviewed the patient's lab results. Result diagrams: 04/13/22 12:04/13/22 12:01 Labs: Lab Results 04/13/22 04/13/22 Range/Units 12: 12:01 WBC 8.0 (4.8-10.8) X10*3/uL RBC 4.68 (4.20-5.50) X10*6/uL Hgb 13.0 (12.0-16.0) g/dl Hct 40.6 (37.0-47.0) % MCV 86.8 (80.0-98.0) fL MCH 27.8 (27.0-33.0) pg MCHC 32.0 (31.0-35.0) g/dl RDW 13.4 (11.0-16.0) % Plt Count 228 D (160-400) X10*3/uL MPV 10.7 (9.4-12.3) fL Immature Gran % (Auto) 0.3 (0.0-0.4) % Neut % (Auto) 71.1 (45-73) % Lymph % (Auto) 21.1 (20-40) % Childress % (Auto) 5.3 (2-11) % Eos % (Auto) 1.6 (0-4) % Baso % (Auto) 0.6 (0-2) % Lymph # (Auto) 1.7 (1.2-4.9) X10*3/uL Childress # (Auto) 0.4 (0.1-1.2) X10*3/uL Eos # (Auto) 0.1 (0.0-0.4) X10*3/uL Baso # (Auto) 0.1 (0.0-0.2) X10*3/uL Abs Immat Gran (auto) 0.02 (0.00-0.03) X10*3/uL Absolute Neuts (auto) 5.7 (2.0-8.3) x10*3/uL Absolute Nucleated RBC 0.000 (0.0-0.012) X10*3/uL Nucleated RBC % (auto) 0.0 (0.0-0.2) /100WBC Sodium 143 (135-145) mmol/L Potassium 4.3 D (3.3-5.1) mmol/L Chloride 104 (96-108) mmol/L Carbon Dioxide 27 (22-29) mmol/L Anion Gap 16 (12-20) BUN 9 (9-16) mg/dL Creatinine 0.79 (0.5-1.4) mg/dL Estim Creat Clear Calc 65.2 Estimated GFR > 60 Random Glucose 74 (60-115) mg/dL Calcium 9.5 D (8.4-10.2) mg/dL Discharge Plan Discharge Clinical Impression: Dizziness Patient Disposition: Home, Self-Care Instructions: Dizziness (ED) Additional Instructions: Follow up with your primary care provider. Return to the emergency department immediately if your symptoms worsen or if you develop any dizziness, shortness of breath, difficulty breathing, chest pain, blurry vision, loss of vision, nausea, vomiting, abdominal pain, fever, chills, back pain, or any other complaints. Prescriptions: No Action dicyclomine 10 mg capsule 10 mg PO TID Qty: 90 2RF cyclobenzaprine 10 mg tablet 10 mg PO TID PRN (Reason: muscle spasm) Qty: 14 0RF promethazine 25 mg suppository 25 mg IL Q6H PRN (Reason: nausea and vomiting) Qty: 12 0RF ondansetron 4 mg tablet,disintegrating 4 mg PO Q8H PRN (Reason: nausea and vomiting) Qty: 20 0RF ondansetron 4 mg tablet,disintegrating 4 mg PO Q8H PRN (Reason: nausea and vomiting) Qty: 7 0RF ondansetron 4 mg tablet,disintegrating 4 mg PO ONCE PRN (Reason: nausea and vomiting) Qty: 10 0RF promethazine 25 mg tablet 25 mg PO Q4-6H PRN (Reason: nausea and vomiting) Qty: 20 0RF omeprazole 40 mg capsule,delayed release(DR/EC) 40 mg PO DAILY Qty: 90 3RF Citrucel 500 mg tablet 500 mg PO DAILY Qty: 30 2RF Rx Instructions: take it with full glass of water [facility] - Stand Alone Forms: Work/School Release Print Language: [place]
== END 2022-04-13 15:31 | disposition home or self-care (01) ==
PROVIDERS: Emergency Provider Internal Medicine
DX: R03.1 Nonspecific low blood-pressure reading (principal); R42 Dizziness and giddiness; Z79.899 Other long term (current) drug therapy
CPT/HCPCS: 36415; 80048; 85025; 99282; 99283

== ENCOUNTER 2022-05-18 04:41 | Emergency (ER) | payer MEDICAID, SELFPAY ==
[2022-05-18 04:44] VITALS: BP 107/78; PULSE 110; PULSE 98; RESP 16; TEMP 36.7; O2SAT 99; BMI 22.0
[2022-05-18 05:03] VITALS: BP 107/78; PULSE 98; RESP 18; TEMP 36.8; O2SAT 99
--- NOTE | 2022-05-18 05:05 | PC.NURSE ---
Pt. on quality assurance monitor at this time
[2022-05-18 06:38] VITALS: BP 117/74; PULSE 95; RESP 17; O2SAT 98
--- NOTE | 2022-05-18 07:09 | ED_ITS ---
HPI - General Adult General Chief complaint: Dizziness Stated complaint: difficulty breathing Time Seen by Provider: 05/18/22 06:46 Source: patient Limitations: no limitations History of Present Illness HPI narrative: Guarav eyes 41 years old female presented to the emergency department by ambulance with chief complaint of dizziness, anxiety, denies any vomiting any diarrhea. Patient is hyperventilating and tearful Onset (ago): hour(s) (3) Radiation: non-radiation Severity: moderate Pain Consistency: constant Relieving factors: none Exacerbating factors: none Related Data Previous Rx's Medication Instructions Recorded cyclobenzaprine 10 mg tablet 10 mg PO TID PRN muscle spasm #14 05/16/20 tabs ondansetron 4 mg disintegrating 4 mg PO Q8H PRN nausea and 06/09/21 tablet vomiting #7 tabs ondansetron 4 mg disintegrating 4 mg PO Q8H PRN nausea and 06/10/21 tablet vomiting #20 tabs promethazine 25 mg rectal 25 mg DC Q6H PRN nausea and 06/10/21 suppository vomiting #12 ea methylcellulose (laxative) 500 mg 500 mg PO DAILY #30 tabs 07/09/21 tablet (Citrucel) omeprazole 40 mg capsule,delayed 40 mg PO DAILY #90 caps 07/09/21 release dicyclomine 10 mg capsule 10 mg PO TID #90 caps 11/13/21 ondansetron 4 mg disintegrating 4 mg PO ONCE PRN nausea and 01/12/22 tablet vomiting #10 tabs promethazine 25 mg tablet 25 mg PO Q4-6H PRN nausea and 01/14/22 vomiting #20 tabs Allergies Allergy/AdvReac Type Severity Reaction Status Date / Time heparin [HEPARIN] Allergy Severe HIT Verified 04/13/22 11:44 morphine [MORPHINE] Allergy Unknown N/A Verified 04/13/22 11:44 Review of Systems Constitutional: Constitutional: Reports no additional constitutional compla ints Cardiovascular: Cardiovascular: Reports no additional cardiovascular complaints Neurologic: Denies seizure-like activity Psychiatric: Psychiatric: Reports anxiety and Reports panic attacks PMFSH Past Medical History Medical History Anxiety Asthma Depressed Marijuana abuse Social History Social History Alcohol intake: current Alcohol intake frequency: holidays/special occasions only Patient Tobacco Use Status: Never used Tobacco Use of substances other than those prescribed or required for medical reasons: Yes Substance Use Type: Marijuana Substance Use Frequency: Daily Advance Directives: No Patient : No Physical Exam ED Vital Signs: Vital Signs - 24 hr 05/18/22 04:44 05/18/22 05:03 05/18/22 06:38 Temperature 98.0 F 98.2 F Pulse Rate 98 98 95 Respiratory Rate 16 18 17 Blood Pressure 107/78 107/78 117/74 Pulse Oximetry 99 99 98 Oxygen Delivery Method Room Air Room Air Room Air BMI result Body Mass Index 22.0 Const General: alert and awake Orientation/consciousness: patient oriented x3 Limitations: no limitations HENMT Head: Yes normal to inspection General nose exam: Normal external nose present Face and sinus: Yes normal facial exam Mouth: Normal oral and palatal mucosa present Throat: Yes posterior oropharynx normal Neck Neck: Yes normal visual inspection and Yes full ROM Chest Chest palpation & inspection: normal inspection of the chest Resp Effort & Inspection: normal respiratory effort Auscultation: clear to auscultation bilaterally Cardio Jugular venous distension: no JVD Rate: regular rate Rhythm: regular rhythm GI Inspection: Yes normal to inspection Palpation (GI): Soft to palpation, not firm, nontender and no guarding General: Yes no CVA tenderness Back/Spine/Pelvis Back: no CVA tenderness Skin General skin exam: no rashes or lesions noted, elasticity normal and turgor normal Lesions: no lesions Rashes: no rashes Neuro General: patient oriented x3 Cranial nerves: Yes CN's II-XII intact bilaterally Coordination: [id number] test normal Extrem General: Yes normal to inspection Course Reevaluation(s) Reevaluation #1: Reexamine 08:11 she is feeling much better, plan to discharge Time: 08:11 Reevaluation #2: She is feeling better she does not want to talk to care team,no SI no HI,she wants to go nhome at this time Time: 08:57 Discharge Plan Discharge Clinical Impression: Anxiety Patient Disposition: Home, Self-Care Instructions: Anxiety (ED) Additional Instructions: Follow-up with your primary care physician return if you worse. Prescriptions: No Action dicyclomine 10 mg capsule 10 mg PO TID Qty: 90 2RF cyclobenzaprine 10 mg tablet 10 mg PO TID PRN (Reason: muscle spasm) Qty: 14 0RF promethazine 25 mg suppository 25 mg DC Q6H PRN (Reason: nausea and vomiting) Qty: 12 0RF ondansetron 4 mg tablet,disintegrating 4 mg PO Q8H PRN (Reason: nausea and vomiting) Qty: 20 0RF ondansetron 4 mg tablet,disintegrating 4 mg PO Q8H PRN (Reason: nausea and vomiting) Qty: 7 0RF ondansetron 4 mg tablet,disintegrating 4 mg PO ONCE PRN (Reason: nausea and vomiting) Qty: 10 0RF promethazine 25 mg tablet 25 mg PO Q4-6H PRN (Reason: nausea and vomiting) Qty: 20 0RF omeprazole 40 mg capsule,delayed release(DR/EC) 40 mg PO DAILY Qty: 90 3RF Citrucel 500 mg tablet 500 mg PO DAILY Qty: 30 2RF Rx Instructions: take it with full glass of water
[2022-05-18] MEDS: LORazepam 0.5 MG TABLET PO (07:33)
--- NOTE | 2022-05-18 07:57 | PC.NURSE ---
PT NAPPING IN THE ROOM, SHE IS EASILY AROUSABLE, SHE APPEARS ANXIOUS WHEN AWAKE, SHE WAS MEDICATED CHARTED
== END 2022-05-18 09:09 | disposition home or self-care (01) ==
PROVIDERS: Emergency Provider Emergency Medicine
DX: F41.9 Anxiety disorder, unspecified (principal); R42 Dizziness and giddiness; F12.10 Cannabis abuse, uncomplicated
CPT/HCPCS: 99283; 99284

== ENCOUNTER 2022-10-11 17:39 | Emergency (ER) | payer MEDICAID, SELFPAY ==
--- NOTE | 2022-10-11 17:59 | ED.NAVMDI ---
HPI - Nausea/Vomiting/Diarrhea General Chief complaint: Nausea/Vomiting/Diarrhea <LEANNE Rdz - Last Filed: 10/11/22 18:07> Stated complaint: N/V/D <LEANNE Rdz - Last Filed: 10/11/22 18:07> Time Seen by Provider: 10/11/22 21:43 <LEANNE Rdz - Last Filed: 10/11/22 18:07> Related Data Home medications: Previous Rx's Medication Instructions Recorded famotidine 20 mg tablet 20 mg PO BID #20 tabs 10/11/22 ondansetron 4 mg disintegrating 4 mg PO Q8H PRN nausea and 10/11/22 tablet vomiting #10 tabs prochlorperazine 25 mg rectal 25 mg MN Q12H PRN nausea and 10/11/22 suppository (Compazine) vomiting #12 ea <LEANNE Rdz - Last Filed: 10/11/22 18:07> Allergies/Adverse reactions: Allergies Allergy/AdvReac Type Severity Reaction Status Date / Time heparin [HEPARIN] Allergy Severe HIT Verified 04/13/22 11:44 morphine [MORPHINE] Allergy Unknown N/A Verified 04/13/22 11:44 <LEANNE Rdz - Last Filed: 10/11/22 18:07> [facility] Past Medical History Medical History: Medical History Anxiety Asthma Depressed Marijuana abuse <LEANNE Rdz Last Filed: 10/11/22 18:07> Social History Social History: Social History Alcohol intake: current Alcohol intake frequency: holidays/special occasions only Patient Tobacco Use Status: Never used Tobacco Substance Use Type: Marijuana Advance Directives: No Advance Directives Information Provided: No <LEANNE Rdz Last Filed: 10/11/22 18:07> Physical Exam Vital Signs: Vital Signs: Last Vital Signs Temp 98.8 F 10/11/22 22:19 Pulse 66 10/11/22 22:19 Resp 14 10/11/22 22:19 BP 91/49 L 10/11/22 22:19 Pulse Ox 97 10/11/22 22:19 O2 Del Method Room Air 10/11/22 22:19 BMI result Body Mass Index 22.4 <LEANNE Rdz - Last Filed: 10/11/22 18:07> Vital Signs: Last Vital Signs Temp 98.8 F 10/11/22 22:19 Pulse 66 10/11/22 22:19 Resp 14 10/11/22 22:19 BP 91/49 L 10/11/22 22:19 Pulse Ox 97 10/11/22 22:19 O2 Del Method Room Air 10/11/22 22:19 BMI result Body Mass Index 22.4 <López Caldera MD - Last Filed: 10/11/22 23:55> Course Course Course Narrative: RME--41yo F w/PMHx anxiety, asthma, cyclical vomiting, c/o abdominal pain, N/V/D x today. Admits to smoking marijuana daily. Patient has been seen in our ED for similar symptoms in the past Patient actively vomiting during triage, slumped over in wheelchair, pale Labs, UA, preg, IVF, IV Benadryl, Reglan, Toradol & Pepcid ordered <LEANNE Rdz - Last Filed: 10/11/22 18:07> Reevaluation(s) Reevaluation #1: Patient is much better. She has been able to take sips of Sprite. Patient is ready to go home. We discussed the importance of keeping hydrated. Discussed medication management. <López Caldera MD - Last Filed: 10/11/22 23:55> Time: 23:55 <López Caldera MD - Last Filed: 10/11/22 23:55> Medications Administered Discontinued Medications Generic Name Dose Route Start Last Admin Trade Name Siddharthq PRN Reason Stop Dose Admin Diphenhydramine HCl 50 mg 10/11/22 18:02 10/11/22 21:01 Diphenhydramine Hcl 50 Mg/Ml Vial IVPUSH 10/11/22 18:03 50 mg ONCE ONE Administration Famotidine 20 mg 10/11/22 18:05 10/11/22 21:01 Famotidine/Pf 20 Mg/2 Ml Vial IVPUSH 10/11/22 18:06 20 mg ONCE ONE Administration Sodium Chloride 1,000 mls @ 999 mls/hr 10/11/22 18:00 10/11/22 21:01 Ns IV 10/11/22 19:00 999 mls/hr .Q1H1M DARRIAN Administration Sodium Chloride 1,000 mls @ 999 mls/hr 10/11/22 22:15 10/11/22 22:30 Ns IV 10/11/22 23:15 999 mls/hr .Q1H1M DARRIAN Administration Ketorolac Tromethamine 15 mg 10/11/22 18:05 10/11/22 21:01 Ketorolac Tromethamine 15 Mg/Ml Vial IVPUSH 10/11/22 18:06 15 mg ONCE ONE Administration Metoclopramide HCl 10 mg 10/11/22 18:02 10/11/22 21:02 Metoclopramide Hcl 10 Mg/2 Ml Vial IVPUSH 10/11/22 18:03 10 mg ONCE ONE Administration Ondansetron HCl 4 mg 10/11/22 22:08 10/11/22 22:31 Ondansetron Hcl 4 Mg/2 Ml Vial IVPUSH 10/11/22 22:09 4 mg ONCE ONE Administration <LEANNE Rdz - Last Filed: 10/11/22 18:07> Medications Administered Discontinued Medications Generic Name Dose Route Start Last Admin Trade Name Freq PRN Reason Stop Dose Admin Diphenhydramine HCl 50 mg 10/11/22 18:02 10/11/22 21:01 Diphenhydramine Hcl 50 Mg/Ml Vial IVPUSH 10/11/22 18:03 50 mg ONCE ONE Administration Famotidine 20 mg 10/11/22 18:05 10/11/22 21:01 Famotidine/Pf 20 Mg/2 Ml Vial IVPUSH 10/11/22 18:06 20 mg ONCE ONE Administration Sodium Chloride 1,000 mls @ 999 mls/hr 10/11/22 18:00 10/11/22 21:01 Ns IV 10/11/22 19:00 999 mls/hr .Q1H1M DARRIAN Administration Sodium Chloride 1,000 mls @ 999 mls/hr 10/11/22 22:15 10/11/22 22:30 Ns IV 10/11/22 23:15 999 mls/hr .Q1H1M DARRIAN Administration Ketorolac Tromethamine 15 mg 10/11/22 18:05 10/11/22 21:01 Ketorolac Tromethamine 15 Mg/Ml Vial IVPUSH 10/11/22 18:06 15 mg ONCE ONE Administration Metoclopramide HCl 10 mg 10/11/22 18:02 10/11/22 21:02 Metoclopramide Hcl 10 Mg/2 Ml Vial IVPUSH 10/11/22 18:03 10 mg ONCE ONE Administration Ondansetron HCl 4 mg 10/11/22 22:08 10/11/22 22:31 Ondansetron Hcl 4 Mg/2 Ml Vial IVPUSH 10/11/22 22:09 4 mg ONCE ONE Administration <López Caldera MD - Last Filed: 10/11/22 23:55> Medical Decision Making Lab Data Result Diagrams: 10/11/22 21:35 10/11/22 21:35 <LEANNE Rdz - Last Filed: 10/11/22 18:07> Labs: Lab Results 10/11/22 10/11/22 10/11/22 Range/Units 21:35 21:35 21:35 WBC 11.7 H (4.8-10.8) X10*3/uL RBC 4.31 (4.20-5.50) X10*6/uL Hgb 12.1 (12.0-16.0) g/dl Hct 36.2 L (37.0-47.0) % MCV 84.0 (80.0-98.0) fL MCH 28.1 (27.0-33.0) pg MCHC 33.4 (31.0-35.0) g/dl RDW 13.2 (11.0-16.0) % Plt Count 161 D (160-400) X10*3/uL MPV 10.7 (9.4-12.3) fL Immature Gran % (Auto) 0.3 (0.0-0.4) % Neut % (Auto) 93.8 H (45-73) % Lymph % (Auto) 2.8 L (20-40) % [place] % (Auto) 2.9 (2-11) % Eos % (Auto) 0.0 (0-4) % Baso % (Auto) 0.2 (0-2) % Lymph # (Auto) 0.3 L (1.2-4.9) X10*3/uL [place] # (Auto) 0.3 (0.1-1.2) X10*3/uL Eos # (Auto) 0.0 (0.0-0.4) X10*3/uL Baso # (Auto) 0.0 (0.0-0.2) X10*3/uL Abs Immat Gran (auto) 0.04 H (0.00-0.03) X10*3/uL Absolute Neuts (auto) 10.9 H (2.0-8.3) x10*3/uL Absolute Nucleated RBC 0.000 (0.0-0.012) X10*3/uL Nucleated RBC % (auto) 0.0 (0.0-0.2) /100WBC Smear Tech's Comments VERIFIED Sodium 140 (135-145) mmol/L Potassium 3.8 (3.3-5.1) mmol/L Chloride 108 (96-108) mmol/L Carbon Dioxide 19 L (22-29) mmol/L Anion Gap 17 (12-20) BUN 17 H (9-16) mg/dL Creatinine 0.77 (0.5-1.4) mg/dL Estim Creat Clear Calc 70.4 Estimated GFR > 60 Random Glucose 167 H (60-115) mg/dL Calcium 8.5 D (8.4-10.2) mg/dL Magnesium 1.7 (1.6-2.6) mg/dL Total Bilirubin 1.1 H (0.0-1.0) mg/dL Direct Bilirubin 0.3 (0.0-0.5) mg/dL AST 40 H (5-31) U/L ALT 35 H (0-31) U/L Alkaline Phosphatase 57 (39-117) U/L Total Protein 6.9 (6.5-8.0) g/dL Albumin 4.2 (3.5-5.0) g/dL Lipase 15 (8-78) U/L COVID-19 (JNENIFER) Negative (Negative) COVID-19 Clin Com See Note <LEANNE Rdz - Last Filed: 10/11/22 18:07> Lab Results 10/11/22 10/11/22 10/11/22 Range/Units 21:35 21:35 21:35 WBC 11.7 H (4.8-10.8) X10*3/uL RBC 4.31 (4.20-5.50) X10*6/uL Hgb 12.1 (12.0-16.0) g/dl Hct 36.2 L (37.0-47.0) % MCV 84.0 (80.0-98.0) fL MCH 28.1 (27.0-33.0) pg MCHC 33.4 (31.0-35.0) g/dl RDW 13.2 (11.0-16.0) % Plt Count 161 D (160-400) X10*3/uL MPV 10.7 (9.4-12.3) fL Immature Gran % (Auto) 0.3 (0.0-0.4) % Neut % (Auto) 93.8 H (45-73) % Lymph % (Auto) 2.8 L (20-40) % [place] % (Auto) 2.9 (2-11) % Eos % (Auto) 0.0 (0-4) % Baso % (Auto) 0.2 (0-2) % Lymph # (Auto) 0.3 L (1.2-4.9) X10*3/uL [place] # (Auto) 0.3 (0.1-1.2) X10*3/uL Eos # (Auto) 0.0 (0.0-0.4) X10*3/uL Baso # (Auto) 0.0 (0.0-0.2) X10*3/uL Abs Immat Gran (auto) 0.04 H (0.00-0.03) X10*3/uL Absolute Neuts (auto) 10.9 H (2.0-8.3) x10*3/uL Absolute Nucleated RBC 0.000 (0.0-0.012) X10*3/uL Nucleated RBC % (auto) 0.0 (0.0-0.2) /100WBC Smear Tech's Comments VERIFIED Sodium 140 (135-145) mmol/L Potassium 3.8 (3.3-5.1) mmol/L Chloride 108 (96-108) mmol/L Carbon Dioxide 19 L (22-29) mmol/L Anion Gap 17 (12-20) BUN 17 H (9-16) mg/dL Creatinine 0.77 (0.5-1.4) mg/dL Estim Creat Clear Calc 70.4 Estimated GFR > 60 Random Glucose 167 H (60-115) mg/dL Calcium 8.5 D (8.4-10.2) mg/dL Magnesium 1.7 (1.6-2.6) mg/dL Total Bilirubin 1.1 H (0.0-1.0) mg/dL Direct Bilirubin 0.3 (0.0-0.5) mg/dL AST 40 H (5-31) U/L ALT 35 H (0-31) U/L Alkaline Phosphatase 57 (39-117) U/L Total Protein 6.9 (6.5-8.0) g/dL Albumin 4.2 (3.5-5.0) g/dL Lipase 15 (8-78) U/L COVID-19 (JENNIFER) Negative (Negative) COVID-19 Clin Com See Note <López Caldera MD - Last Filed: 10/11/22 23:55> Discharge Plan Discharge Clinical Impression: Gastroenteritis, Dehydration <LEANNE Rdz - Last Filed: 10/11/22 18:07> Patient Disposition: Still a Patient <LEANNE Rdz - Last Filed: 10/11/22 18:07> Instructions: Dehydration (ED), Acute Nausea and Vomiting (ED), Acute Diarrhea (ED) <LEANNE Rdz - Last Filed: 10/11/22 18:07> Prescriptions: New ondansetron 4 mg tablet,disintegrating 4 mg PO Q8H PRN (Reason: nausea and vomiting) Qty: 10 0RF famotidine 20 mg tablet 20 mg PO BID Qty: 20 0RF prochlorperazine [Compazine] 25 mg suppository 25 mg MN Q12H PRN (Reason: nausea and vomiting) Qty: 12 0RF Discontinued dicyclomine 10 mg capsule 10 mg PO TID Qty: 90 2RF cyclobenzaprine 10 mg tablet 10 mg PO TID PRN (Reason: muscle spasm) Qty: 14 0RF promethazine 25 mg suppository 25 mg MN Q6H PRN (Reason: nausea and vomiting) Qty: 12 0RF ondansetron 4 mg tablet,disintegrating 4 mg PO Q8H PRN (Reason: nausea and vomiting) Qty: 20 0RF ondansetron 4 mg tablet,disintegrating 4 mg PO Q8H PRN (Reason: nausea and vomiting) Qty: 7 0RF ondansetron 4 mg tablet,disintegrating 4 mg PO ONCE PRN (Reason: nausea and vomiting) Qty: 10 0RF promethazine 25 mg tablet 25 mg PO Q4-6H PRN (Reason: nausea and vomiting) Qty: 20 0RF omeprazole 40 mg capsule,delayed release(DR/EC) 40 mg PO DAILY Qty: 90 3RF Citrucel 500 mg tablet 500 mg PO DAILY Qty: 30 2RF Rx Instructions: take it with full glass of water <LEANNE Rdz - Last Filed: 10/11/22 18:07> Referrals: [facility] [place] [facility] [Provider Group] - 5 days <LEANNE Rdz - Last Filed: 10/11/22 18:07> Print Language: Belarusian <LEANNE Rdz - Last Filed: 10/11/22 18:07>
[2022-10-11 18:05] VITALS: BP 104/55; BP 96/59; PULSE 63; PULSE 77; RESP 20; TEMP 36.6; O2SAT 100; O2SAT 99; BMI 22.4
[2022-10-11] MEDS: Famotidine/PF 20 MG/2 ML VIAL IVPUSH (21:01)
[2022-10-11] MEDS: diphenhydrAMINE HCL 50 MG/ML VIAL IVPUSH (21:01)
[2022-10-11] MEDS: Ketorolac Tromethamine 15 MG/ML VIAL IVPUSH (21:01)
[2022-10-11] MEDS: 0.9 % Sodium Chloride 1,000 ML 999 ML IV ×2 (21:01→22:30)
[2022-10-11] MEDS: Metoclopramide HCl 10 MG/2 ML VIAL IVPUSH (21:02)
[2022-10-11 21:41] LABS: Basophils Percent Auto 0.2 % (0-2); Hematocrit 36.2 % (37.0-47.0); Hemoglobin 12.1 g/dl (12.0-16.0); Imm Gran Abs Auto 0.04 X10*3/uL (0.00-0.03); Imm Gran Pct Auto 0.3 % (0.0-0.4); Lymphocytes Absolute Auto 0.3 X10*3/uL (1.2-4.9); Lymphocytes Percent Auto 2.8 % (20-40); MANUAL DIFF FLAG SCAN; Mean Corpuscular HGB Conc 33.4 g/dl (31.0-35.0); Mean Corpuscular Hemoglobin 28.1 pg (27.0-33.0); Mean Platelet Volume 10.7 fL (9.4-12.3); Monocytes Absolute Auto 0.3 X10*3/uL (0.1-1.2); Monocytes Percent Auto 2.9 % (2-11); Neutrophils Absolute Auto 10.9 x10*3/uL (2.0-8.3); Neutrophils Percent Auto 93.8 % (45-73); Platelet Count 161 X10*3/uL (160-400); Red Blood Count 4.31 X10*6/uL (4.20-5.50); Red Cell Distribution Width 13.2 % (11.0-16.0); SCAN SMEAR FLAG 1; White Blood Count 11.7 X10*3/uL (4.8-10.8)
--- NOTE | 2022-10-11 21:50 | PC.NURSE ---
22 G IV line inserted to R upper arm, patient medicated per MAR, NS bolus infusing. Patient's significant other at bedside. Call campos within patient's reach.
[2022-10-11 22:00] LABS: Alanine Aminotransferase 35 U/L (0-31); Albumin Level 4.2 g/dL (3.5-5.0); Alkaline Phosphatase 57 U/L (39-117); Anion Gap 17 (12-20); Aspartate Amino Transferase 40 U/L (5-31); Bilirubin Direct 0.3 mg/dL (0.0-0.5); Bilirubin Total 1.1 mg/dL (0.0-1.0); Blood Urea Nitrogen 17 mg/dL (9-16); Calcium 8.5 mg/dL (8.4-10.2); Carbon Dioxide 19 mmol/L (22-29); Chloride 108 mmol/L (96-108); Creatinine Clr Calc Pharmacy 70.4; Estimated Glomerular Filt Rate > 60; Glucose Random 167 mg/dL (60-115); Lipase 15 U/L (8-78); Magnesium 1.7 mg/dL (1.6-2.6); Potassium 3.8 mmol/L (3.3-5.1); Sodium 140 mmol/L (135-145); Total Protein 6.9 g/dL (6.5-8.0)
[2022-10-11 22:05] LABS: COVID-19 Test Negative (Negative); IDNOW Serial# 6674DD1D
--- NOTE | 2022-10-11 22:08 | ED_ITS ---
HPI - General Adult General Chief complaint: Nausea/Vomiting/Diarrhea Stated complaint: N/V/D Time Seen by Provider: 10/11/22 21:43 Source: patient Mode of arrival: ambulatory Limitations: no limitations History of Present Illness HPI narrative: 41-year-old female presents with nausea, vomiting, abdominal pain, diarrhea. Symptoms started around 12:00 p.m. this afternoon. Patient describes the symptoms as severe. They are constant. There is no clear relieving or exacerbating features. There has been no blood in vomitus or stool. She has had no fevers but has felt chilled. Her abdominal pain is generalized. She can is unable to describe it. Does not radiate. The pain is constant. Denies any sick contacts. Related Data Previous Rx's Medication Instructions Recorded famotidine 20 mg tablet 20 mg PO BID #20 tabs 10/11/22 ondansetron 4 mg disintegrating 4 mg PO Q8H PRN nausea and 10/11/22 tablet vomiting #10 tabs prochlorperazine 25 mg rectal 25 mg [place] Q12H PRN nausea and 10/11/22 suppository (Compazine) vomiting #12 ea Allergies Allergy/AdvReac Type Severity Reaction Status Date / Time heparin [HEPARIN] Allergy Severe HIT Verified 04/13/22 11:44 morphine [MORPHINE] Allergy Unknown N/A Verified 04/13/22 11:44 [facility] Past Medical History Medical History Anxiety Asthma Depressed Marijuana abuse Social History Social History Alcohol intake: current Alcohol intake frequency: holidays/special occasions only Patient Tobacco Use Status: Never used Tobacco Substance Use Type: Marijuana Advance Directives: No Advance Directives Information Provided: No Physical Exam ED Vital Signs: Vital Signs - 24 hr 10/11/22 18:05 10/11/22 22:19 Temperature 97.9 F 98.8 F Pulse Rate 63 66 Respiratory Rate 20 14 Blood Pressure 104/55 L 91/49 L Pulse Oximetry 99 97 Oxygen Delivery Method Room Air Room Air BMI result Body Mass Index 22.4 GEN: Well developed, on well-appearing, alert, oriented HEENT: Normocephalic, atraumatic, normal external ears, nose appears normal, no oropharyngeal edema or exudates Eyes: Normal to appearance Neck: Supple, no lymphadenopathy Respiratory: Talks in complete sentences, no respiratory distress, clear to auscultation bilaterally Cardiovascular: Regular rate and rhythm, no murmurs rubs or gallops Abdomen: Soft, generalized mild tenderness, nondistended, no guarding, no rebound Back: No CVA tenderness Extremities: No clubbing cyanosis or edema Neurologic: No focal neurologic deficits, cranial nerves 2-12 intact, strength is 5/5 bilaterally, gait normal Skin: No rash Course Course Course Narrative: 41-year-old female presents with nausea, vomiting, diarrhea generalized abdominal pain. Her examination was benign. She had mild tenderness but no rebound or guarding. Suspect viral gastroenteritis. I do not believe the patient has an acute abdomen such as colitis, diverticulitis, appendicitis. There is no emergent indication for imaging studies at this time. Will obtain routine laboratory analysis, provide patient with IV fluids, analgesics, antiemetics, H2 alli. Will re-evaluate patient following full workup. Reevaluation(s) Reevaluation #1: Patient is feeling much better. She is tolerating oral intake. Family is ready to take patient home. We discussed the portions of hydration. She is aware medical management including ondansetron, Tylenol, ibuprofen, H2 blockers. For progressive symptoms, patient return for re-evaluation. Time: 23:58 Medications Administered Discontinued Medications Generic Name Dose Route Start Last Admin Trade Name Siddharthq PRN Reason Stop Dose Admin Diphenhydramine HCl 50 mg 10/11/22 18:02 10/11/22 21:01 Diphenhydramine Hcl 50 Mg/Ml Vial IVPUSH 10/11/22 18:03 50 mg ONCE ONE Administration Famotidine 20 mg 10/11/22 18:05 10/11/22 21:01 Famotidine/Pf 20 Mg/2 Ml Vial IVPUSH 10/11/22 18:06 20 mg ONCE ONE Administration Sodium Chloride 1,000 mls @ 999 mls/hr 10/11/22 18:00 10/11/22 21:01 Ns IV 10/11/22 19:00 999 mls/hr .Q1H1M DARRIAN Administration Sodium Chloride 1,000 mls @ 999 mls/hr 10/11/22 22:15 10/11/22 22:30 Ns IV 10/11/22 23:15 999 mls/hr .Q1H1M DARRIAN Administration Ketorolac Tromethamine 15 mg 10/11/22 18:05 10/11/22 21:01 Ketorolac Tromethamine 15 Mg/Ml Vial IVPUSH 10/11/22 18:06 15 mg ONCE ONE Administration Metoclopramide HCl 10 mg 10/11/22 18:02 10/11/22 21:02 Metoclopramide Hcl 10 Mg/2 Ml Vial IVPUSH 10/11/22 18:03 10 mg ONCE ONE Administration Ondansetron HCl 4 mg 10/11/22 22:08 10/11/22 22:31 Ondansetron Hcl 4 Mg/2 Ml Vial IVPUSH 10/11/22 22:09 4 mg ONCE ONE Administration Medical Decision Making Medical Decision Making [facility] Narrative: 41-year-old female with no major medical problems presents with nausea, vomiting, diarrhea and abdominal pain. Examination is benign. I suspect patient has a viral gastroenteritis. Differential diagnosis is broad. Will obtain routine laboratory analysis to rule out other possible diagnoses. I doubt catastrophic events such as AAA, perforated viscus, appendicitis, cholecystitis. Patient will have frequent re-evaluations. Differential Diagnosis Differential Diagnoses: The differential diagnosis associated with the presentation includes (gastroenteritis, IBS, IBD, cholecystitis, appendicitis, bacterial over growth, pancreatitis) Acute nausea, vomiting, diarrhea Admission/Observation Consideration of admission/observation: Escalation of care including admission/observation considered Lab Data [facility] Lab Attestation statement: I reviewed the patient's lab results. 10/11/22 21:35 10/11/22 21:35 Labs: Lab Results 10/11/22 10/11/22 10/11/22 Range/Units 21:35 21:35 21:35 WBC 11.7 H (4.8-10.8) X10*3/uL RBC 4.31 (4.20-5.50) X10*6/uL Hgb 12.1 (12.0-16.0) g/dl Hct 36.2 L (37.0-47.0) % MCV 84.0 (80.0-98.0) fL MCH 28.1 (27.0-33.0) pg MCHC 33.4 (31.0-35.0) g/dl RDW 13.2 (11.0-16.0) % Plt Count 161 D (160-400) X10*3/uL MPV 10.7 (9.4-12.3) fL Immature Gran % (Auto) 0.3 (0.0-0.4) % Neut % (Auto) 93.8 H (45-73) % Lymph % (Auto) 2.8 L (20-40) % [place] % (Auto) 2.9 (2-11) % Eos % (Auto) 0.0 (0-4) % Baso % (Auto) 0.2 (0-2) % Lymph # (Auto) 0.3 L (1.2-4.9) X10*3/uL [place] # (Auto) 0.3 (0.1-1.2) X10*3/uL Eos # (Auto) 0.0 (0.0-0.4) X10*3/uL Baso # (Auto) 0.0 (0.0-0.2) X10*3/uL Abs Immat Gran (auto) 0.04 H (0.00-0.03) X10*3/uL Absolute Neuts (auto) 10.9 H (2.0-8.3) x10*3/uL Absolute Nucleated RBC 0.000 (0.0-0.012) X10*3/uL Nucleated RBC % (auto) 0.0 (0.0-0.2) /100WBC Smear Tech's Comments VERIFIED Sodium 140 (135-145) mmol/L Potassium 3.8 (3.3-5.1) mmol/L Chloride 108 (96-108) mmol/L Carbon Dioxide 19 L (22-29) mmol/L Anion Gap 17 (12-20) BUN 17 H (9-16) mg/dL Creatinine 0.77 (0.5-1.4) mg/dL Estim Creat Clear Calc 70.4 Estimated GFR > 60 Random Glucose 167 H (60-115) mg/dL Calcium 8.5 D (8.4-10.2) mg/dL Magnesium 1.7 (1.6-2.6) mg/dL Total Bilirubin 1.1 H (0.0-1.0) mg/dL Direct Bilirubin 0.3 (0.0-0.5) mg/dL AST 40 H (5-31) U/L ALT 35 H (0-31) U/L Alkaline Phosphatase 57 (39-117) U/L Total Protein 6.9 (6.5-8.0) g/dL Albumin 4.2 (3.5-5.0) g/dL Lipase 15 (8-78) U/L COVID-19 (JENNIFER) Negative (Negative) COVID-19 Clin Com See Note Independent Historian Clinical information obtained from an independent historian. History obtained from or confirmed by: Other (Daughter) External Record Review External record reviewed: Office record (GI consultation 07/09/2021, IBS, GERD, diarrhea) Tests considered The following testing was considered but not selected: CT scan abdomen Prescription Management I considered prescription management with: Pain Medication Discharge Plan Discharge Clinical Impression: Gastroenteritis, Dehydration Patient Disposition: Home, Self-Care Instructions: Dehydration (ED), Acute Nausea and Vomiting (ED), Acute Diarrhea (ED) Prescriptions: New ondansetron 4 mg tablet,disintegrating 4 mg PO Q8H PRN (Reason: nausea and vomiting) Qty: 10 0RF famotidine 20 mg tablet 20 mg PO BID Qty: 20 0RF prochlorperazine [Compazine] 25 mg suppository 25 mg OR Q12H PRN (Reason: nausea and vomiting) Qty: 12 0RF Discontinued dicyclomine 10 mg capsule 10 mg PO TID Qty: 90 2RF cyclobenzaprine 10 mg tablet 10 mg PO TID PRN (Reason: muscle spasm) Qty: 14 0RF promethazine 25 mg suppository 25 mg OR Q6H PRN (Reason: nausea and vomiting) Qty: 12 0RF ondansetron 4 mg tablet,disintegrating 4 mg PO Q8H PRN (Reason: nausea and vomiting) Qty: 20 0RF ondansetron 4 mg tablet,disintegrating 4 mg PO Q8H PRN (Reason: nausea and vomiting) Qty: 7 0RF ondansetron 4 mg tablet,disintegrating 4 mg PO ONCE PRN (Reason: nausea and vomiting) Qty: 10 0RF promethazine 25 mg tablet 25 mg PO Q4-6H PRN (Reason: nausea and vomiting) Qty: 20 0RF omeprazole 40 mg capsule,delayed release(DR/EC) 40 mg PO DAILY Qty: 90 3RF Citrucel 500 mg tablet 500 mg PO DAILY Qty: 30 2RF Rx Instructions: take it with full glass of water Referrals: [facility] [Provider Group] - 5 days Print Language: Kosovan
[2022-10-11 22:19] VITALS: BP 91/49; PULSE 66; RESP 14; TEMP 37.1; O2SAT 97
[2022-10-11] MEDS: ondansetron HCL 4 MG/2 ML VIAL IVPUSH (22:31)
[2022-10-11 22:45] LABS: SLIDE REVIEW VERIFIED
== END 2022-10-12 00:50 | disposition home or self-care (01) ==
PROVIDERS: Physician Assistant; Emergency Provider Emergency Medicine
DX: K52.9 Noninfective gastroenteritis and colitis, unspecified (principal); E86.0 Dehydration; Z20.822 Contact with and (suspected) exposure to COVID-19; R11.2 Nausea with vomiting, unspecified; R10.84 Generalized abdominal pain; F12.10 Cannabis abuse, uncomplicated; Z79.899 Other long term (current) drug therapy
CPT/HCPCS: 36415; 80048; 80076; 83690; 83735; 85025; 87635; 96361; 96374; 96375; 99284; J1200; J1885; J2405; J2765

== ENCOUNTER 2023-07-16 12:15 | Emergency (ER) | payer MEDICAID, SELFPAY ==
[2023-07-16 12:20] VITALS: BP 114/74; PULSE 63; O2SAT 100
[2023-07-16 13:00] VITALS: BP 111/67; PULSE 68; RESP 14; TEMP 36.7; O2SAT 100; BMI 23.1
--- NOTE | 2023-07-16 13:02 | ED_ITS ---
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 and light sensitivity patient vomited in the ER during triage no fever no chills no cough upper respiratory symptoms no recent head injury headache localized mostly in the right side Related Data Previous Rx's Medication Instructions Recorded famotidine 20 mg tablet 20 mg PO BID #20 tabs 10/11/22 ondansetron 4 mg disintegrating 4 mg PO Q8H PRN nausea and 10/11/22 tablet vomiting #10 tabs prochlorperazine 25 mg rectal 25 mg [place] Q12H PRN nausea and 10/11/22 suppository (Compazine) vomiting #12 ea jbdrsqsnsd-yatvvengrajyr-bgwumqxp 1 tab PO Q6H PRN haeadace #20 tabs 07/16/23 50 mg-325 mg-40 mg tablet sumatriptan succinate 50 mg tablet 50 mg PO Q2H PRN migraine headache 07/16/23 (Imitrex) #10 tabs Allergies Allergy/AdvReac Type Severity Reaction Status Date / Time heparin [HEPARIN] Allergy Severe HIT Verified 04/13/22 11:44 morphine [MORPHINE] Allergy Unknown N/A Verified 04/13/22 11:44 Review of Systems Review of Systems: Yes all other systems are reviewed and are negative PMFSH Past Medical History Medical History Marijuana abuse Anxiety Depressed Asthma Social History Social History Alcohol intake: current Alcohol intake frequency: holidays/special occasions only Patient Tobacco Use Status: Never used Tobacco Smoked in Last 30 Days: No Use of substances other than those prescribed or required for medical reasons: Yes Substance Use Type: Marijuana Advance Directives: No Advance Directives Information Provided: No Patient : No Physical Exam ED Vital Signs: Vital Signs - 24 hr 07/16/23 13:00 07/16/23 18:11 07/16/23 19:16 Temperature 98.1 F 98.1 F Pulse Rate 68 58 52 Respiratory Rate 14 18 16 Blood Pressure 111/67 104/61 104/45 L Pulse Oximetry 100 99 98 Oxygen Delivery Method Room Air Room Air Room Air BMI result Body Mass Index 23.1 Appearance: Alert. Oriented X3. No acute distress. Eyes: PERRLA, No Nystagmus ENT: Pharynx normal. Oral Mucosa moist no temporal artery tenderness no sinus tenderness Neck: Normal inspection. Neck supple. CVS: Normal heart rate and rhythm. Pulses normal. Respiratory: No respiratory distress. Equal air entry bilateral, Abdomen: Soft and nontender. Skin: Skin warm and dry. Normal skin color. Normal skin turgor. Extremities: No lower extremity edema. No calf tenderness Neuro: Oriented X 3. No motor deficit. No sensory deficit.No cerebellar signs , cranial nerves II-XII intact Course Course Course Narrative: RME:?42 yo female w/ history of migraines here w/ right sided headache on waking this morning. took 200 ibuprofen this morning without relief. +nausea, blurred vision, photophobia. no vomiting, scalp tenderness, palpable temporal aa. history of migraines, use to be on medication for this however stopped taking it a few yrs ago. cannot recall name. denies sick contacts. no fever, cough, congestion. + here in wheelchair, ambulating w/ steady gait to the scale Full HPI, ROS and PE to be performed by the primary ED provider. Medications Administered Discontinued Medications Generic Name Dose Route Start Last Admin Trade Name Freq PRN Reason Stop Dose Admin Acetaminophen/Butalbital/Caffeine 1 tab 07/16/23 17:34 07/16/23 18:14 Butalb/Acetamin/Caff 50/325/40 Tablet PO 07/16/23 17:35 1 tab ONCE ONE Administration Ondansetron HCl 4 mg 07/16/23 17:34 07/16/23 18:14 Ondansetron Odt 4 Mg Tab.Rapdis TRANSLINGU 07/16/23 17:35 4 mg ONCE ONE Administration Sumatriptan Succinate 6 mg 07/16/23 17:34 07/16/23 18:14 Sumatriptan Succinate 6 Mg/0.5 Ml Vial SUBCUT 07/16/23 17:35 6 mg ONCE ONE Administration Medical Decision Making Medical Decision Making [facility] Narrative: Patient with migraine headache improved after Imitrex subQ but patient felt very anxious started vomiting improved after Zofran will discharge patient home on p.o. Imitrex and Fioricet Differential Diagnosis Differential Diagnoses: The differential diagnosis associated with the presentation includes Tension headache/migraine Lab Data MDM Lab Attestation statement: I reviewed the patient's lab results. Labs: Lab Results 07/16/23 Range/Units 13:10 Influenza Type A (PCR) NEGATIVE (Negative) Influenza Type B (PCR) NEGATIVE (Negative) RSV RNA Qual (PCR) NEGATIVE (Negative) SARS-CoV-2 RNA (RT-PCR) NEGATIVE (Negative) Discharge Plan Discharge Clinical Impression: Migraine Patient Disposition: Home, Self-Care Instructions: Migraine Headache (ED) Additional Instructions: Take medication as prescribed Follow-up with PCP [place] [facility] seg?n lo prescrito Seguimiento con PCP Prescriptions: New sumatriptan succinate [Imitrex] 50 mg tablet 50 mg PO Q2H PRN (Reason: migraine headache) Qty: 10 0RF Rx Instructions: do not exceed 2 doses per 24 hrs rzryogdfrr-htwfsdemgcxbi-sdlf 50-325-40 mg tablet 1 tab PO Q6H PRN (Reason: haeadace) Qty: 20 0RF No Action ondansetron 4 mg tablet,disintegrating 4 mg PO Q8H PRN (Reason: nausea and vomiting) Qty: 10 0RF famotidine 20 mg tablet 20 mg PO BID Qty: 20 0RF prochlorperazine [Compazine] 25 mg suppository 25 mg [place] Q12H PRN (Reason: nausea and vomiting) Qty: 12 0RF Interventions: ED Discharge Assessment Last Done: 07/16/23 20:01 Discharge Date/Time: 07/16/23 20:01 Print Language: Maltese
[2023-07-16 14:06] LABS: Influenza A PCR NEGATIVE (Negative); Influenza B PCR NEGATIVE (Negative); Resp Syncy Virus RNA Qual PCR NEGATIVE (Negative); SARS COV2 PCR INHOUSE NEGATIVE (Negative)
[2023-07-16 18:11] VITALS: BP 104/61; PULSE 58; RESP 18; O2SAT 99
[2023-07-16] MEDS: SUMAtriptan succinate 6 MG/0.5 ML VIAL SUBCUT (18:14)
[2023-07-16] MEDS: Ondansetron ODT 4 MG TAB.RAPDIS TRANSLINGU (18:14)
[2023-07-16] MEDS: Butalb/Acetamin/Caff 50/325/40 TABLET 1 TAB PO (18:14)
[2023-07-16 19:16] VITALS: BP 104/45; PULSE 52; RESP 16; TEMP 36.7; O2SAT 98
--- NOTE | 2023-07-16 19:42 | PC.NURSE ---
pt refusing po zofran at this time Dr. Rees aware. pt reports CHRISTIANSON resolved neuros intact ambulatory with steady gait. requesting to be d/c. Dr. Rees notified.
== END 2023-07-16 20:01 | disposition home or self-care (01) ==
PROVIDERS: Physician Assistant Medical; Emergency Provider Internal Medicine
DX: G43.909 Migraine, unspecified, not intractable, without status migrainosus (principal); R42 Dizziness and giddiness; R11.2 Nausea with vomiting, unspecified; H53.8 Other visual disturbances; Z20.822 Contact with and (suspected) exposure to COVID-19; Z20.828 Contact with and (suspected) exposure to other viral communicable diseases
CPT/HCPCS: 0241U; 96372; 99284; J3030

== ENCOUNTER 2023-07-17 08:37 | Emergency (ER) | payer MEDICAID, SELFPAY ==
--- NOTE | ~2023-07-17 | CT_ITS ---
EXAMINATION: CT ABDOMEN AND PELVIS WITH CONTRAST CLINICAL INFORMATION: Lower abdominal pain. COMPARISON: Ultrasound of January 12, [address] of May 16, 2020 TECHNIQUE: Multidetector volumetric images were obtained from the superior aspect of the liver through the pubic symphysis following administration 85 mL of Omnipaque 350 intravenous contrast. Sagittal and coronal reformatted images were obtained on the technologist's workstation. Oral contrast: No This CT examination was performed using dose optimization techniques as appropriate, variously including the following: *Automated exposure control *Adjustment of mA and/or kV according to patient size (this includes techniques or standardized protocols for targeted exams where dose is matched to indication/reason for exam; i.e. extremities or head) *Use of iterative reconstruction technique DLP: 314 mGy-cm FINDINGS: Study is somewhat limited due to lack of oral contrast and intra-abdominal fat within the pelvis. There is also motion artifact present. LUNG BASES: The visualized lung bases are unremarkable. No pleural or pericardial effusion. LIVER, GALLBLADDER, AND BILIARY TREE: The liver is normal in size, shape, and attenuation. No focal solid hepatic lesion or biliary ductal dilatation is present.. Noted to be some stable scattered cysts present. The gallbladder is unremarkable with no evidence of radiopaque gallstones, gallbladder wall thickening, or obvious pericholecystic inflammatory changes. PANCREAS: Unremarkable. SPLEEN: Unremarkable. ADRENAL GLANDS: Unremarkable. KIDNEYS AND URETERS: The kidneys are normal in size, shape, and attenuation. No hydronephrosis, hydroureter, or calculi seen. No perinephric stranding. There are a few scattered subcentimeter low-density regions likely representing cysts seen bilaterally. BLADDER: Unremarkable. GASTROINTESTINAL TRACT: No dilated loops of large or small bowel. No free air or significant free fluid. There appears to be trace fluid about the right lower pelvis. Lack of oral contrast and abdominal fat somewhat limits evaluation of loops of bowel within the mid left abdomen and pelvis. The appendix is not visualized within the grouping of loops of bowel within the pelvis without intervening fat planes. No definite pericolonic inflammatory changes seen. ABDOMINAL WALL: No significant hernia is appreciated. LYMPH NODES: No lymphadenopathy appreciated. VASCULAR: Unremarkable. PELVIC VISCERA: Limited evaluation but without suspicious mass or significant fluid collection identified. OSSEOUS STRUCTURES: Unremarkable. CT/CT abdomen pelvis w IV con IMPRESSION: Limitations to study as described above. No evidence of bowel ileus or obstruction. No evidence of obstructive uropathy. Appendix not identified and acute appendicitis cannot be excluded on this study. Clinical correlation suggested. Fleischner guidelines were followed.
[2023-07-17 09:27] VITALS: BP 92/50; PULSE 71; RESP 14; TEMP 36.8; O2SAT 100
--- NOTE | 2023-07-17 10:02 | ED.GENADULT ---
HPI - General Adult General Chief complaint: Nausea/Vomiting/Diarrhea Stated complaint: N/V T-1,ABD PAIN,MIGRAINE Time Seen by Provider: 07/17/23 08:53 Source: patient Mode of arrival: ambulatory Limitations: no limitations History of Present Illness HPI narrative: 42-year-old female history of anxiety, depression, asthma, migraine headaches presents for the 2nd day in a row for complaints of migraine with nausea, vomiting, patient reports this feels like her typical migraine, she was seen yesterday given a shot for pain and a pill that melted under her tongue which gave her even more nausea. She states when she went home she continued to vomit and it never got better. Patient reports her migraine feels like her typical, frontal predominantly to the right side, no visual disturbances or weakness, no associated head trauma. Patient denies fevers, chills, neck pain, upper respiratory symptoms, head injury, cough, chest pain, shortness of breath, weakness. Smokes marijuanna NIH stroke scale 0 Related Data Previous Rx's Medication Instructions Recorded famotidine 20 mg tablet 20 mg PO BID #20 tabs 10/11/22 ondansetron 4 mg disintegrating 4 mg PO Q8H PRN nausea and 10/11/22 tablet vomiting #10 tabs prochlorperazine 25 mg rectal [address] Q12H PRN nausea and 10/11/22 suppository (Compazine) vomiting #12 ea fhofzelyqw-bauttwjlfesbw-mqwmogqy 1 tab PO Q6H PRN haeadace #20 tabs 07/16/23 50 mg-325 mg-40 mg tablet sumatriptan succinate 50 mg tablet 50 mg PO Q2H PRN migraine headache 07/16/23 (Imitrex) #10 tabs Allergies Allergy/AdvReac Type Severity Reaction Status Date / Time heparin [HEPARIN] Allergy Severe HIT Verified 04/13/22 11:44 morphine [MORPHINE] Allergy Unknown N/A Verified 04/13/22 11:44 Review of Systems Review of Systems: Constitutional : No Weight loss, No Fever, No Chills, No Fatigue, No Malaise ENT/Mouth : No sore throat, No Rhinorrhea Eyes: No Eye Pain, No Swelling, No Redness Cardiovascular : No Chest Pain, No SOB, No Dyspnea on Exertion, No Orthopnea, No Edema, No Palpitations Respiratory : No Cough, No Sputum, No Wheezing Gastrointestinal : + Nausea, + Vomiting, No Diarrhea, No Constipation, No abdominal Pain, No Hematochezia, No Melena Genitourinary : No Dysuria, No Urinary Frequency, No Hematuria, Musculoskeletal : No joint pain, No Myalgias, No Joint Swelling Skin : No Skin Lesions, No rash Neuro : No Weakness, No Numbness, No Dizziness, + Headache Psych : No Anxiety/Panic, No Depression All other systems reviewed and are negative Yes all other systems are reviewed and are negative [facility] Past Medical History Attestation statement: The following information was validated with the patient. Source: old records reviewed and nursing notes reviewed Medical History Marijuana abuse Anxiety Depressed Asthma Social History Social History Alcohol intake: current Alcohol intake frequency: holidays/special occasions only Patient Tobacco Use Status: Never used Tobacco Substance Use Type: Marijuana Advance Directives: Yes Advance Directives Information Provided: Yes Advance Directives on File: No Physical Exam ED Vital Signs: Vital Signs - 24 hr 07/17/23 09:27 07/17/23 12:15 Temperature 98.3 F Pulse Rate 71 76 Respiratory Rate 14 13 Blood Pressure 92/50 L 95/52 L Pulse Oximetry 100 98 Oxygen Delivery Method Room Air Room Air BMI result Body Mass Index 28.6 Course Reevaluation(s) Reevaluation #1: CBC unremarkable. Chemistry no acute findings negative beta-hCG. CT abdomen pelvis pending. Lipase pending Sign out to Dr. Tay. Time: 11:03 Reevaluation #2: has only upper abdominal pain no RLQ pain clinically not consistent with appendicitis. obtaining UA at this time Medications Administered Discontinued Medications Generic Name Dose Route Start Last Admin Trade Name Freq PRN Reason Stop Dose Admin Diphenhydramine HCl 25 mg 07/17/23 09:40 07/17/23 10:34 Diphenhydramine Hcl 50 Mg/Ml Vial IVPUSH 07/17/23 09:41 25 mg ONCE ONE Administration Iohexol 85 ml 07/17/23 11:38 07/17/23 11:38 Iohexol 350 Mg/Ml 100 Ml Infus..Btl IV 07/17/23 11:39 85 ml ONCE ONE Administration Ketorolac Tromethamine 30 mg 07/17/23 09:40 07/17/23 10:34 Ketorolac Tromethamine 15 Mg/Ml Vial IVPUSH 07/17/23 09:41 30 mg ONCE ONE Administration Metoclopramide HCl 10 mg 07/17/23 09:40 07/17/23 10:34 Metoclopramide Hcl 10 Mg/2 Ml Vial IVPUSH 07/17/23 09:41 10 mg ONCE ONE Administration Ondansetron HCl 4 mg 07/17/23 11:19 07/17/23 11:27 Ondansetron Hcl 4 Mg/2 Ml Vial IVPUSH 07/17/23 11:20 4 mg ONCE ONE Administration Medical Decision Making Medical Decision Making [facility] Narrative: 42-year-old female presents with nausea, vomiting, abdominal pain, headache seen here yesterday for migraine not improving Physical exam benign NIH stroke scale 0 This is likely viral illness versus migraine versus headache of versus gastroenteritis. Unlikely intracranial hemorrhage, stroke, posterior stroke, meningitis, encephalitis, acute abdomen, diverticulitis, pancreatitis, cholecystitis, appendicitis, obstruction. Other differential includes hyperemesis secondary to marijuana use. Will rule out and electrolyte abnormality Plan will medicate with Toradol Reglan and Benadryl. Differential Diagnosis Differential Diagnoses: The differential diagnosis associated with the presentation includes This is likely viral illness versus migraine versus headache of versus gastroenteritis. Unlikely intracranial hemorrhage, stroke, posterior stroke, meningitis, encephalitis, acute abdomen, diverticulitis, pancreatitis, cholecystitis, appendicitis, obstruction. Other differential includes hyperemesis secondary to marijuana use. Will rule out and electrolyte abnormality Admission/Observation Consideration of admission/observation: Escalation of care including admission/observation considered Possible Lab Data [facility] Lab Attestation statement: I reviewed the patient's lab results. 07/17/23 10:16 07/17/23 10:16 Labs: Lab Results 07/17/23 Range/Units 10:16 WBC 10.3 (4.8-10.8) X10*3/uL RBC 4.31 (4.20-5.50) X10*6/uL Hgb 12.1 (12.0-16.0) g/dl Hct 36.0 L (37.0-47.0) % MCV 83.5 (80.0-98.0) fL MCH 28.1 (27.0-33.0) pg MCHC 33.6 (31.0-35.0) g/dl RDW 13.2 (11.0-16.0) % Plt Count 176 (160-400) X10*3/uL MPV 11.5 (9.4-12.3) fL Immature Gran % (Auto) 0.2 (0.0-0.4) % Neut % (Auto) 84.1 H (45-73) % Lymph % (Auto) 10.1 L (20-40) % [place] % (Auto) 5.5 (2-11) % Eos % (Auto) 0.0 (0-4) % Baso % (Auto) 0.1 (0-2) % Lymph # (Auto) 1.0 L (1.2-4.9) X10*3/uL [place] # (Auto) 0.6 (0.1-1.2) X10*3/uL Eos # (Auto) 0.0 (0.0-0.4) X10*3/uL Baso # (Auto) 0.0 (0.0-0.2) X10*3/uL Abs Immat Gran (auto) 0.02 (0.00-0.03) X10*3/uL Absolute Neuts (auto) 8.7 H (2.0-8.3) x10*3/uL Absolute Nucleated RBC 0.000 (0.0-0.012) X10*3/uL Nucleated RBC % (auto) 0.0 (0.0-0.2) /100WBC Sodium 142 (135-145) mmol/L Potassium 3.9 (3.3-5.1) mmol/L Chloride 106 (96-108) mmol/L Carbon Dioxide 25 (22-29) mmol/L Anion Gap 15 (12-20) BUN 12 (9-16) mg/dL Creatinine 0.82 (0.5-1.4) mg/dL Estim Creat Clear Calc 52.1 Estimated GFR > 60 Random Glucose 119 H (60-115) mg/dL Calcium 9.7 D (8.4-10.2) mg/dL Magnesium 2.0 (1.6-2.6) mg/dL Total Bilirubin 0.9 (0.0-1.0) mg/dL AST 28 (5-31) U/L ALT 24 (0-31) U/L Alkaline Phosphatase 52 (39-117) U/L Total Protein 7.5 (6.5-8.0) g/dL Albumin 4.4 (3.5-5.0) g/dL Lipase 9 (8-78) U/L Beta HCG, Quant < 2 mIU/mL Influenza Type A (PCR) NEGATIVE (Negative) Influenza Type B (PCR) NEGATIVE (Negative) RSV RNA Qual (PCR) NEGATIVE (Negative) SARS-CoV-2 RNA (RT-PCR) NEGATIVE (Negative) Independent Interpretation I performed an independent interpretation of an: CT Scan Radiology Impression Discussion of test interpretation with radiology: I have reviewed the radiologist's reading. Critical Care Time Critical Care Time Critical Care Time: No Discharge Plan Discharge Clinical Impression: Acute migraine, Acute epigastric pain Patient Disposition: Still a Patient Prescriptions: No Action sumatriptan succinate [Imitrex] 50 mg tablet 50 mg PO Q2H PRN (Reason: migraine headache) Qty: 10 0RF Rx Instructions: do not exceed 2 doses per 24 hrs qbiuxmjryp-oxmzrdnmnygky-jams 50-325-40 mg tablet 1 tab PO Q6H PRN (Reason: haeadace) Qty: 20 0RF ondansetron 4 mg tablet,disintegrating 4 mg PO Q8H PRN (Reason: nausea and vomiting) Qty: 10 0RF famotidine 20 mg tablet 20 mg PO BID Qty: 20 0RF prochlorperazine [Compazine] 25 mg suppository [address] Q12H PRN (Reason: nausea and vomiting) Qty: 12 0RF
[2023-07-17 10:06] VITALS: BP 132/74; PULSE 68; O2SAT 96; BMI 28.6
[2023-07-17 10:21] LABS: MANUAL DIFF FLAG NO
[2023-07-17 10:24] LABS: Basophils Percent Auto 0.1 % (0-2); Hemoglobin 12.1 g/dl (12.0-16.0); Imm Gran Abs Auto 0.02 X10*3/uL (0.00-0.03); Imm Gran Pct Auto 0.2 % (0.0-0.4); Lymphocytes Percent Auto 10.1 % (20-40); Mean Corpuscular HGB Conc 33.6 g/dl (31.0-35.0); Mean Corpuscular Hemoglobin 28.1 pg (27.0-33.0); Mean Corpuscular Volume 83.5 fL (80.0-98.0); Mean Platelet Volume 11.5 fL (9.4-12.3); Monocytes Absolute Auto 0.6 X10*3/uL (0.1-1.2); Monocytes Percent Auto 5.5 % (2-11); Neutrophils Absolute Auto 8.7 x10*3/uL (2.0-8.3); Neutrophils Percent Auto 84.1 % (45-73); Platelet Count 176 X10*3/uL (160-400); Red Blood Count 4.31 X10*6/uL (4.20-5.50); Red Cell Distribution Width 13.2 % (11.0-16.0); White Blood Count 10.3 X10*3/uL (4.8-10.8)
[2023-07-17] MEDS: Metoclopramide HCl 10 MG/2 ML VIAL IVPUSH (10:34)
[2023-07-17] MEDS: Ketorolac Tromethamine 15 MG/ML VIAL 30 MG IVPUSH (10:34)
[2023-07-17] MEDS: diphenhydrAMINE HCL 50 MG/ML VIAL 25 MG IVPUSH (10:34)
[2023-07-17 10:44] LABS: Alanine Aminotransferase 24 U/L (0-31); Albumin Level 4.4 g/dL (3.5-5.0); Alkaline Phosphatase 52 U/L (39-117); Anion Gap 15 (12-20); Aspartate Amino Transferase 28 U/L (5-31); Bilirubin Total 0.9 mg/dL (0.0-1.0); Blood Urea Nitrogen 12 mg/dL (9-16); Calcium 9.7 mg/dL (8.4-10.2); Carbon Dioxide 25 mmol/L (22-29); Chloride 106 mmol/L (96-108); Creatinine Clr Calc Pharmacy 52.1; Estimated Glomerular Filt Rate > 60; Glucose Random 119 mg/dL (60-115); Potassium 3.9 mmol/L (3.3-5.1); Sodium 142 mmol/L (135-145); Total Protein 7.5 g/dL (6.5-8.0)
[2023-07-17 10:45] LABS: HCG Quantitative < 2 mIU/mL
[2023-07-17 11:13] LABS: Influenza A PCR NEGATIVE (Negative); Influenza B PCR NEGATIVE (Negative); Resp Syncy Virus RNA Qual PCR NEGATIVE (Negative); SARS COV2 PCR INHOUSE NEGATIVE (Negative)
[2023-07-17] MEDS: ondansetron HCL 4 MG/2 ML VIAL IVPUSH (11:27)
[2023-07-17 11:29] LABS: Lipase 9 U/L (8-78)
[2023-07-17] MEDS: iohexoL 350 MG/ML 100 ML INFUS..BTL 85 ML IV (11:38)
[2023-07-17 12:15] VITALS: BP 95/52; PULSE 76; RESP 13; O2SAT 98
[2023-07-17 13:48] LABS: Appearance Urine Clear; Color Urine Yellow; Glucose Urine UA Negative (Negative); Leukocyte Esterase Urine Negative (Negative); Nitrite Urine Negative (Negative); PH 5.5 (5.0-9.0); Specific Gravity - Urine >= 1.030 (1.005-1.025); UMIC TRIGGER UACC YES; Urine Blood Negative (Negative); Urine Ketones Trace mg/dL (Negative); Urine Protein 30 (1+) mg/dL (Neg-Trace)
[2023-07-17 13:58] LABS: Bacteria Urine None Seen (None Seen); Hyaline Casts Urine 0-2 /LPF (0-2); Squamous Epithelial Cell Urine 0-2 /HPF (0-2); WBC Urine 0-5 /HPF (0-5)
[2023-07-17 15:29] VITALS: BP 90/50; PULSE 54; RESP 14; O2SAT 99
== END 2023-07-17 15:38 | disposition still patient (30) ==
PROVIDERS: Physician Assistant; Emergency Provider Emergency Medicine
DX: G43.909 Migraine, unspecified, not intractable, without status migrainosus (principal); R10.13 Epigastric pain; Z20.822 Contact with and (suspected) exposure to COVID-19; Z20.828 Contact with and (suspected) exposure to other viral communicable diseases
CPT/HCPCS: 0241U; 74177; 80053; 81001; 83690; 83735; 84702; 85025; 96374; 96375; 99283; 99284; J1200; J1885; J2405; J2765; Q9967

== ENCOUNTER 2023-07-18 14:11 | Emergency (ER) | payer MEDICAID, SELFPAY ==
--- NOTE | 2023-07-18 14:19 | ED.GENADULT ---
HPI - General Adult General Chief complaint: Nausea/Vomiting/Diarrhea Stated complaint: ABD PAIN,VOMITING,SEEN RECENTLY PER EMS Time Seen by Provider: 07/18/23 18:36 Source: patient, family, RN notes reviewed and old records reviewed Mode of arrival: EMS History of Present Illness HPI narrative: 42-year-old female with past medical history significant for IBS, GERD, depression, asthma, anxiety presents for evaluation of abdominal pain, nausea, vomiting. This is the patient's 3rd visit in last 3 days for similar complaints She had labs done yesterday and a CT scan of the abdomen pelvis which did not show any acute findings She reports feeling better last night after being discharged. This morning after eating eggs she started to vomit again and has not stopped vomiting since The patient does endorse smoking marijuana. She has history of a tubal ligation but no other abdominal surgeries Related Data Previous Rx's Medication Instructions Recorded famotidine 20 mg tablet 20 mg PO BID #20 tabs 10/11/22 ondansetron 4 mg disintegrating 4 mg PO Q8H PRN nausea and 10/11/22 tablet vomiting #10 tabs prochlorperazine 25 mg rectal 25 mg CO Q12H PRN nausea and 10/11/22 suppository (Compazine) vomiting #12 ea snklevhgte-xtmdkgamawyvf-lusrlrvc 1 tab PO Q6H PRN haeadace #20 tabs 07/16/23 50 mg-325 mg-40 mg tablet sumatriptan succinate 50 mg tablet 50 mg PO Q2H PRN migraine headache 07/16/23 (Imitrex) #10 tabs Allergies Allergy/AdvReac Type Severity Reaction Status Date / Time heparin [HEPARIN] Allergy Severe HIT Verified 04/13/22 11:44 morphine [MORPHINE] Allergy Unknown N/A Verified 04/13/22 11:44 Review of Systems Constitutional: Constitutional: Denies body ache(s), Reports chills, Denies fever(s) and Denies headache(s) ENT: Denies headache(s) and Denies sore throat Cardiovascular: Cardiovascular: Denies dyspnea Respiratory: Respiratory: Denies cough and Denies dyspnea Gastrointestinal: Gastrointestinal: Reports abdominal pain, Denies melena, Denies hematochezia, Reports nausea and Reports vomiting Musculoskeletal: Musculoskeletal: Denies back pain Integumentary/Breasts: Skin/Breast: Denies erythema and Denies rash Neurologic: Denies headache(s) [facility] Past Medical History Medical History Marijuana abuse Anxiety Depressed Asthma Social History Social History Alcohol intake: current Alcohol intake frequency: holidays/special occasions only Patient Tobacco Use Status: Never used Tobacco Substance Use Type: Marijuana Advance Directives: No Advance Directives Information Provided: Yes Physical Exam ED Vital Signs: Vital Signs - 24 hr 07/18/23 14:40 07/18/23 19:43 Temperature 98.3 F Pulse Rate 70 54 Respiratory Rate 18 16 Blood Pressure 132/74 102/58 L Pulse Oximetry 99 98 Oxygen Delivery Method Room Air Room Air BMI result Body Mass Index 29.0 Const General: healthy appearing, comfortable, no acute distress, alert and awake Nutritional Appearance: well nourished Orientation/consciousness: patient oriented x3 HENMT Head: Yes normocephalic and Yes atraumatic Eyes Eyelids: Yes eyelids normal Conjunctivae: conjunctivae normal Sclerae: sclerae normal Corneas: corneas normal Pupils: Equal, round and reactive pupils present EOM: EOMs intact bilaterally Neck Neck: Yes full ROM Resp Effort & Inspection: normal respiratory effort, able to speak in complete sentences and not labored GI Inspection: No distended Palpation (GI): Soft to palpation, not firm, Tenderness to palpation present (GI) in the epigastrum and in the LUQ; not in the LLQ, not in the RLQ, not in the RUQ and not at McBurney's point, no guarding and not rigid Skin General skin exam: elasticity normal Neuro General: patient oriented x3 Cranial nerves: Yes Equal, round and reactive pupils present and Yes Bilaterally intact EOM present Cognition (Neuro): normal cognition Extrem Other: Moving all extremities well without any obvious deformities Course Course Course Narrative: RME- 42-year-old female presents for evaluation of nausea, vomiting. This is her 3rd visit in the last 3 days for similar complaint. Plan for repeat labs Reevaluation(s) Reevaluation #1: Patient feeling much better after treatment, she is stable for discharge. I did discuss with her that she should follow-up with GI given the recurrent symptoms and she should avoid smoking marijuana. Time: 20:49 Medications Administered Discontinued Medications Generic Name Dose Route Start Last Admin Trade Name Julien PRN Reason Stop Dose Admin Haloperidol Lactate 2.5 mg 07/18/23 18:41 07/18/23 19:39 Haloperidol Lactate 5 Mg/Ml Vial IVPUSH 07/18/23 18:42 2.5 mg STAT STA Administration Sodium Chloride 1,000 mls @ 999 mls/hr 07/18/23 18:45 07/18/23 20:25 Ns IV 07/18/23 19:45 Infused .Q1H1M DARRIAN Infusion Medical Decision Making Medical Decision Making [facility] Narrative: 42-year-old female presents for evaluation abdominal pain, nausea vomiting. She has multiple ER visits for similar including signal vomiting syndrome, epigastric pain. She follows with GI due to GERD. I reviewed her labs and CT scan from yesterday. There were no acute findings discomfort. Will repeat labs but will withhold further imaging at this time. She has no right upper quadrant tenderness, no right lower quadrant tenderness. Labs are consistent with yesterday without any significant abnormalities. Will treat with IV fluids, Haldol 2.5 mg IV Differential Diagnosis Differential Diagnoses: The differential diagnosis associated with the presentation includes Cyclic vomiting syndrome Gastroenteritis GERD Gastritis IBS Bowel obstruction less likely Admission/Observation Consideration of admission/observation: Escalation of care including admission/observation considered Considered for admission due to her 3rd visit in the last 3 days for similar complaints. Lab Data [facility] Lab Attestation statement: I reviewed the patient's lab results. Mild leukocytosis to 11.2 K. hemoglobin is normal at 12.7, her hematocrit is just below normal at 36.9. Patient's CO2 is 19 which may relate to hyperventilating. She has no increase in anion gap, no electrolyte abnormalities. Renal function within normal limits. She has a very slight elevation of AST and ALT was may related to vomiting. Her bilirubin is normal and she has no right upper quadrant tenderness 07/18/23 14:39 07/18/23 14:39 Labs: Lab Results 07/18/23 07/18/23 Range/Units 14:39 19:34 WBC 11.2 H (4.8-10.8) X10*3/uL RBC 4.53 (4.20-5.50) X10*6/uL Hgb 12.7 (12.0-16.0) g/dl Hct 36.9 L (37.0-47.0) % MCV 81.5 (80.0-98.0) fL MCH 28.0 (27.0-33.0) pg MCHC 34.4 (31.0-35.0) g/dl RDW 13.1 (11.0-16.0) % Plt Count 194 (160-400) X10*3/uL MPV 10.8 (9.4-12.3) fL Immature Gran % (Auto) 0.3 (0.0-0.4) % Neut % (Auto) 73.5 H (45-73) % Lymph % (Auto) 18.9 L (20-40) % Clark % (Auto) 6.0 (2-11) % Eos % (Auto) 1.1 (0-4) % Baso % (Auto) 0.2 (0-2) % Lymph # (Auto) 2.1 (1.2-4.9) X10*3/uL Clark # (Auto) 0.7 (0.1-1.2) X10*3/uL Eos # (Auto) 0.1 (0.0-0.4) X10*3/uL Baso # (Auto) 0.0 (0.0-0.2) X10*3/uL Abs Immat Gran (auto) 0.03 (0.00-0.03) X10*3/uL Absolute Neuts (auto) 8.3 (2.0-8.3) x10*3/uL Absolute Nucleated RBC 0.000 (0.0-0.012) X10*3/uL Nucleated RBC % (auto) 0.0 (0.0-0.2) /100WBC Sodium 139 (135-145) mmol/L Potassium 3.6 (3.3-5.1) mmol/L Chloride 105 (96-108) mmol/L Carbon Dioxide 19 L (22-29) mmol/L Anion Gap 19 (12-20) BUN 15 (9-16) mg/dL Creatinine 0.81 (0.5-1.4) mg/dL Estim Creat Clear Calc 102.8 Estimated GFR > 60 Random Glucose 79 (60-115) mg/dL Calcium 9.3 (8.4-10.2) mg/dL Total Bilirubin 0.9 (0.0-1.0) mg/dL AST 42 H (5-31) U/L ALT 33 H (0-31) U/L Alkaline Phosphatase 50 (39-117) U/L Total Protein 7.7 (6.5-8.0) g/dL Albumin 4.3 (3.5-5.0) g/dL Lipase 23 (8-78) U/L Urine Color Dark Yellow Urine Appearance Clear Urine pH 5.5 (5.0-9.0) Ur Specific Monroe >= 1.030 H (1.005-1.025) Urine Protein 30 (1+) H (Neg-Trace) mg/dL Urine Glucose (UA) Negative (Negative) mg/dL Urine Ketones 80 (Negative) mg/dL Urine Blood Negative (Negative) Urine Nitrite Negative (Negative) Ur Leukocyte Esterase Trace H (Negative) Urine RBC 0-2 (0-2) /HPF Urine WBC 0-5 (0-5) /HPF Ur Squamous Epith Cells 3-5 (0-2) /HPF Urine Bacteria None Seen (None Seen) Hyaline Casts 0-2 (0-2) /LPF Urine Test NEGATIVE (NEGATIVE) Urine Opiates Screen Not Detected (Not Detect) Urine Fentanyl Screen Not Detected (Not Detect) Ur Barbiturates Screen POSITIVE H (Not Detect) Ur Phencyclidine Scrn Not Detected (Not Detect) Ur Amphetamines Screen Not Detected (Not Detect) U Benzodiazepines Scrn Not Detected (Not Detect) Urine Cocaine Screen Not Detected (Not Detect) U Marijuana (THC) Screen POSITIVE H (Not Detect) Discharge Plan Discharge Clinical Impression: Cyclic vomiting syndrome Patient Disposition: Home, Self-Care Instructions: Acute Nausea and Vomiting (ED) Additional Instructions: You may use the previous prescribed Zofran for nausea or vomiting Drink lots of fluids, small sips at a time Follow-up with GI. Return for new or worsening symptoms Prescriptions: No Action sumatriptan succinate [Imitrex] 50 mg tablet 50 mg PO Q2H PRN (Reason: migraine headache) Qty: 10 0RF Rx Instructions: do not exceed 2 doses per 24 hrs zghtoesewh-msclruiivwqpv-mjmn 50-325-40 mg tablet 1 tab PO Q6H PRN (Reason: haeadace) Qty: 20 0RF ondansetron 4 mg tablet,disintegrating 4 mg PO Q8H PRN (Reason: nausea and vomiting) Qty: 10 0RF famotidine 20 mg tablet 20 mg PO BID Qty: 20 0RF prochlorperazine [Compazine] 25 mg suppository 25 mg CO Q12H PRN (Reason: nausea and vomiting) Qty: 12 0RF Referrals: Robert Farmer MD [Physician] - (cyclic vomiting IBS)
[2023-07-18 14:40] VITALS: BP 132/74; PULSE 69; PULSE 70; RESP 18; TEMP 36.8; O2SAT 99; BMI 29.0
[2023-07-18 14:45] LABS: MANUAL DIFF FLAG NO
[2023-07-18 14:46] LABS: Basophils Percent Auto 0.2 % (0-2); Eosinophils Absolute Auto 0.1 X10*3/uL (0.0-0.4); Eosinophils Percent Auto 1.1 % (0-4); Hematocrit 36.9 % (37.0-47.0); Hemoglobin 12.7 g/dl (12.0-16.0); Imm Gran Abs Auto 0.03 X10*3/uL (0.00-0.03); Imm Gran Pct Auto 0.3 % (0.0-0.4); Lymphocytes Absolute Auto 2.1 X10*3/uL (1.2-4.9); Lymphocytes Percent Auto 18.9 % (20-40); Mean Corpuscular HGB Conc 34.4 g/dl (31.0-35.0); Mean Corpuscular Volume 81.5 fL (80.0-98.0); Mean Platelet Volume 10.8 fL (9.4-12.3); Monocytes Absolute Auto 0.7 X10*3/uL (0.1-1.2); Neutrophils Absolute Auto 8.3 x10*3/uL (2.0-8.3); Neutrophils Percent Auto 73.5 % (45-73); Platelet Count 194 X10*3/uL (160-400); Red Blood Count 4.53 X10*6/uL (4.20-5.50); Red Cell Distribution Width 13.1 % (11.0-16.0); White Blood Count 11.2 X10*3/uL (4.8-10.8)
[2023-07-18 15:10] LABS: Alanine Aminotransferase 33 U/L (0-31); Albumin Level 4.3 g/dL (3.5-5.0); Alkaline Phosphatase 50 U/L (39-117); Anion Gap 19 (12-20); Aspartate Amino Transferase 42 U/L (5-31); Bilirubin Total 0.9 mg/dL (0.0-1.0); Blood Urea Nitrogen 15 mg/dL (9-16); Calcium 9.3 mg/dL (8.4-10.2); Carbon Dioxide 19 mmol/L (22-29); Chloride 105 mmol/L (96-108); Creatinine Clr Calc Pharmacy 102.8; Estimated Glomerular Filt Rate > 60; Glucose Random 79 mg/dL (60-115); Lipase 23 U/L (8-78); Potassium 3.6 mmol/L (3.3-5.1); Sodium 139 mmol/L (135-145); Total Protein 7.7 g/dL (6.5-8.0)
[2023-07-18] MEDS: 0.9 % Sodium Chloride 1,000 ML 999 ML IV (19:14)
--- NOTE | 2023-07-18 19:16 | ECG_ITS ---
Test Reason : check QTc Blood Pressure : / mmHG Vent. Rate : 056 BPM Atrial Rate : 056 BPM P-R Int : 112 ms QRS Dur : 070 ms QT Int : 444 ms P-R-T Axes : 074 049 038 degrees QTc Int : 428 ms Sinus bradycardia Nonspecific T wave abnormality Borderline ECG When compared with ECG of 06-NOV-2021 11:17, Vent. rate has decreased BY 62 BPM Referred By: Jack Graf Electronically Signed By:SAQIB PRADO
[2023-07-18] MEDS: Haloperidol Lactate 5 MG/ML VIAL 2.5 MG IVPUSH (19:39)
[2023-07-18 19:43] VITALS: BP 102/58; PULSE 54; RESP 16; O2SAT 98
[2023-07-18 19:46] LABS: UPreg QC Valid YES; Urine Pregnancy NEGATIVE (NEGATIVE)
[2023-07-18 19:51] LABS: Amphetamine Screen Urine Not Detected (Not Detect); Appearance Urine Clear; Barbiturates, Urine POSITIVE (Not Detect); Benzodiazepines Screen Urine Not Detected (Not Detect); Cannabinoid Screen Urine POSITIVE (Not Detect); Cocaine Screen Urine Not Detected (Not Detect); Color Urine Dark Yellow; Fentanyl, urine Not Detected (Not Detect); Glucose Urine UA Negative (Negative); Leukocyte Esterase Urine Trace (Negative); Nitrite Urine Negative (Negative); Opiate Screen Urine Not Detected (Not Detect); PH 5.5 (5.0-9.0); Phencyclidine Screen Urine Not Detected (Not Detect); Specific Gravity - Urine >= 1.030 (1.005-1.025); UMIC TRIGGER UACC YES; Urine Blood Negative (Negative); Urine Ketones 80 mg/dL (Negative); Urine Protein 30 (1+) mg/dL (Neg-Trace)
[2023-07-18 19:54] LABS: Bacteria Urine None Seen (None Seen); Hyaline Casts Urine 0-2 /LPF (0-2); RBC Urine 0-2 /HPF (0-2); WBC Urine 0-5 /HPF (0-5)
== END 2023-07-18 21:04 | disposition home or self-care (01) ==
PROVIDERS: Physician Assistant; Emergency Provider Emergency Medicine
DX: R11.15 Cyclical vomiting syndrome unrelated to migraine (principal); R00.1 Bradycardia, unspecified; R11.2 Nausea with vomiting, unspecified; Z79.899 Other long term (current) drug therapy
CPT/HCPCS: 36415; 80053; 80307; 81001; 81025; 83690; 85025; 93005; 96361; 96374; 99284; J1630

== ENCOUNTER → 2023-07-18 19:16 | Outpatient (BNV) | payer MEDICAID, SELFPAY | PROVIDERS: Emergency Provider Emergency Medicine; Visit Provider Internal Medicine | DX: R00.1 Bradycardia, unspecified (principal) | CPT/HCPCS: 93010 ==

== ENCOUNTER 2023-07-19 12:03 | Inpatient (IN) | payer MEDICAID, SELFPAY ==
--- NOTE | ~2023-07-19 | CT_ITS ---
EXAMINATION: CT ABDOMEN AND PELVIS WITH CONTRAST CLINICAL INFORMATION: Abdominal pain. Intractable vomiting. COMPARISON: None available. TECHNIQUE: Multidetector volumetric images were obtained from the superior aspect of the liver through the pubic symphysis following administration 85 mL of Omnipaque 350 intravenous contrast. Sagittal and coronal reformatted images were obtained on the technologist's workstation. Oral contrast: No This CT examination was performed using dose optimization techniques as appropriate, variously including the following: *Automated exposure control *Adjustment of mA and/or kV according to patient size (this includes techniques or standardized protocols for targeted exams where dose is matched to indication/reason for exam; i.e. extremities or head) *Use of iterative reconstruction technique DLP: 309 mGy-cm FINDINGS: LUNG BASES: The visualized lung bases are unremarkable. LIVER, GALLBLADDER, AND BILIARY TREE: There are scattered hepatic hypodensities likely small cysts. There is no intrahepatic biliary duct dilatation. The gallbladder is unremarkable with no evidence of radiopaque gallstones, gallbladder wall thickening, or obvious pericholecystic inflammatory changes. PANCREAS: Unremarkable. SPLEEN: Unremarkable. ADRENAL GLANDS: Unremarkable. KIDNEYS AND URETERS: The kidneys are normal in size, shape, and attenuation. No hydronephrosis, hydroureter, or calculi seen. No perinephric stranding. BLADDER: Unremarkable. GASTROINTESTINAL TRACT: There is gastric fold thickening. The appendix is visualized and is within normal limits. ABDOMINAL WALL: No significant hernia is appreciated. A right upper thigh lipoma is again noted. LYMPH NODES: Normal. VASCULAR: Unremarkable. PELVIC VISCERA: Unremarkable. OSSEOUS STRUCTURES: Unremarkable. CT/CT abdomen pelvis w IV con IMPRESSION: 1. Gastric fold thickening, correlate clinically for gastritis. 2. Scattered hepatic hypodensities likely small cysts. Fleischner guidelines were followed.
[2023-07-19 12:11] VITALS: BP 122/72; PULSE 66; O2SAT 97
--- NOTE | 2023-07-19 13:28 | ED.GENADULT ---
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 Patient states that she has been seen here a total of 4 times now for persistent nausea, vomiting, and abdominal pain. Patient states that she does smoke marijuana and her last CT scan for this was 2 days ago but she feels like it is worse now. Patient denies any dizziness, lightheadedness, fever, chills, blurry vision, double vision, loss of vision, chest pain, difficulty breathing, shortness of breath, back pain, night sweats, pain with urination, increased urinary frequency, increased urinary urgency, blood in her urine or stool, syncope or a near syncopal episode, recent trauma or falls, bowel incontinence, bladder incontinence, bowel retention, bladder retention, or any other complaints at this time. Onset (ago): day(s) (4) Location: abdomen Severity: mild Severity scale (1-10): 4 Relieving factors: none Exacerbating factors: none Associated symptoms: nausea/vomiting Treatments prior to arrival: none Related Data Previous Rx's Medication Instructions Recorded famotidine 20 mg tablet 20 mg PO BID #20 tabs 10/11/22 ondansetron 4 mg disintegrating 4 mg PO Q8H PRN nausea and 10/11/22 tablet vomiting #10 tabs prochlorperazine 25 mg rectal 25 mg OR Q12H PRN nausea and 10/11/22 suppository (Compazine) vomiting #12 ea nutendurkj-vttwfonsgpplc-pxkgnkpg 1 tab PO Q6H PRN haeadace #20 tabs 07/16/23 50 mg-325 mg-40 mg tablet sumatriptan succinate 50 mg tablet 50 mg PO Q2H PRN migraine headache 07/16/23 (Imitrex) #10 tabs Allergies Allergy/AdvReac Type Severity Reaction Status Date / Time heparin [HEPARIN] Allergy Severe HIT Verified 07/19/23 13:24 morphine [MORPHINE] Allergy Unknown N/A Verified 07/19/23 13:24 Review of Systems Constitutional: Constitutional: Reports no additional constitutional complaints, Denies chills, Denies fever(s) and Denies night sweats Eyes: Eyes: Reports no additional eye complaints, Denies blurry vision, Denies change in vision, Denies diplopia, Denies eye discharge, Denies loss of vision and Denies eye pain ENT: Denies dizziness Cardiovascular: Cardiovascular: Reports no additional cardiovascular complaints, Denies chest pain, Denies lightheadedness, Denies Loss of Consciousness and Denies dyspnea Respiratory: Respiratory: Reports no additional respiratory complaints and Denies dyspnea Gastrointestinal: Gastrointestinal: Reports no additional gastrointestinal complaints, Reports abdominal pain, Denies melena, Denies hematochezia, Denies change in bowel habits, Denies change in stool character, Reports nausea and Reports vomiting Genitourinary: Genitourinary: Denies hematuria, Denies urinary frequency, Denies dysuria, Denies urinary incontinence, Denies urinary hesitancy and Denies urinary urgency Musculoskeletal: Musculoskeletal: Reports no additional musculoskeletal complaints, Denies numbness and Denies tingling Neurologic: Denies dizziness, Denies loss of vision, Denies numbness and Denies tingling Psychiatric: Psychiatric: Reports no additional psychiatric complaints Endocrine: Endocrine: Reports no additional endocrine complaints Hematologic/Lymphatic: Hematologic/Lymphatic: Reports no additional hematologic/lymphatic complaints Allergic/Immunologic: Allergic/Immunologic: Reports no additional allergic/immunologic complaints [facility] Past Medical History Attestation statement: The following information was validated with the patient. Source: old records reviewed and nursing notes reviewed Medical History Marijuana abuse Anxiety Depressed Asthma Social History Social History Unable to assess alcohol history related to: Unknown Alcohol intake: current Alcohol intake frequency: holidays/special occasions only Patient Tobacco Use Status: Never used Tobacco Smoked in Last 30 Days: Yes Use of substances other than those prescribed or required for medical reasons: Yes Substance Use Type: Marijuana Last Used Substance: Days (ago) Advance Directives: No Advance Directives Information Provided: No Patient : No Physical Exam ED Vital Signs: Vital Signs - 24 hr 07/19/23 13:32 07/20/23 02:46 Temperature 97.8 F Pulse Rate 60 62 Respiratory Rate 16 16 Blood Pressure 133/75 122/59 L Pulse Oximetry 99 98 Oxygen Delivery Method Room Air Room Air BMI result Body Mass Index 21.6 Const General: cooperative, no acute distress, alert and awake Nutritional Appearance: well nourished Orientation/consciousness: patient oriented x3 Limitations: no limitations HENMT Head: Yes normal to inspection and Yes atraumatic Ears: hearing grossly normal bilaterally and external ears normal General nose exam: Normal external nose present, no nasal discharge noted and no epistaxis Face and sinus: Yes normal facial exam, No abrasion and No laceration Mouth: Normal oral and palatal mucosa present, no drooling and no muffled voice Eyes General: appearance normal, both eyes and all related structures Periorbital: periorbital findings normal Eyelids: Yes eyelids normal Conjunctivae: conjunctivae normal Pupils: Equal, round and reactive pupils present EOM: EOMs intact bilaterally Neck Neck: Yes normal visual inspection, Yes full ROM and Yes no lymphadenopathy Chest Chest palpation & inspection: normal inspection of the chest Resp Effort & Inspection: normal respiratory effort and able to speak in complete sentences GI Inspection: Yes normal to inspection Palpation (GI): Soft to palpation, not firm, nontender and no guarding Neuro General: patient oriented x3 and moves all extremities Cranial nerves: Yes Equal, round and reactive pupils present Cognition (Neuro): normal cognition Motor exam (neuro): 5/5 motor strength present throughout Sensory Exam: Normal double simultaneous stimulation for sensation Coordination: ejzhpn-lb-gthv test normal Extrem General: Yes normal to inspection, Yes full ROM and Yes capillary refill normal Psych Appearance: grossly normal Mental Status: mental status grossly normal Affect: normal affect Attitude: cooperative Thought process: Normal thought process present Thought content: Normal thought content present Insight: Good insight present (Psych) Course Course Course Narrative: This is a rapid medical exam: Additional HPI, ROS, PE not included below will be deferred to primary provider. Patient is a 42-year-old Turkmen speaking female with history of marijuana use, cyclical vomiting, asthma, anxiety and depression presenting to the ED with complaint of generalized abdominal pain, nausea and vomiting. Seen here last night for same and diagnosed with cyclical vomiting, has medications for nausea at home, was referred to GI. States symptoms are worse than yesterday. Also complains of cramping to legs and hands. Plan: labs, UA, urine drug screen, viral swabs Medications Administered Discontinued Medications Generic Name Dose Route Start Last Admin Trade Name Siddharthq PRN Reason Stop Dose Admin Droperidol 1.25 mg 07/19/23 20:52 07/19/23 21:09 Droperidol 5 Mg/2 Ml Vial IVPUSH 07/19/23 20:53 1.25 mg ONCE ONE Administration Sodium Chloride 1,000 mls @ 999 mls/hr 07/19/23 21:00 07/19/23 22:16 Ns IV 07/19/23 22:00 Infused .Q1H1M DARRIAN Infusion Ceftriaxone Sodium 1 gm/ 50 mls @ 100 mls/hr 07/19/23 23:03 07/20/23 00:19 Sodium Chloride IV 07/19/23 23:32 Infused ONCE ONE Infusion Sodium Chloride 1,000 mls @ 999 mls/hr 07/20/23 00:45 07/20/23 01:51 Ns IV 07/20/23 01:45 Infused .Q1H1M DARRIAN Infusion Iohexol 85 ml 07/20/23 01:29 07/20/23 01:30 Iohexol 350 Mg/Ml 100 Ml Infus..Btl IV 07/20/23 01:30 85 ml ONCE ONE Administration Metoclopramide HCl 10 mg 07/19/23 22:01 07/19/23 22:06 Metoclopramide Hcl 10 Mg/2 Ml Vial IVPUSH 07/19/23 22:02 10 mg ONCE ONE Administration Ondansetron HCl 4 mg 07/20/23 00:31 07/20/23 00:49 Ondansetron Hcl 4 Mg/2 Ml Vial IVPUSH 07/20/23 00:32 4 mg ONCE ONE Administration Medical Decision Making Medical Decision Making [facility] Narrative: Patient is a 42 year old assigned female at with a history of depression, asthma, and anxiety presenting to the emergency department today with nausea, vomiting, and abdominal pain. Patient's physical exam was unremarkable. Patient's blood work showed an elevated WBC count of 11.4 but was otherwise unremarkable. Patient's urine showed a possible UTI. Patient's abdomen/pelvis CT shows evidence of gastritis. I explained my physical exam findings as well as all test results to the patient. I answered all questions asked by the patient. Patient received IV anti-emetics including droperidol, reglan, and Zofran which she stated none of it helped her symptoms. Given patient's UA and symptoms, patient was given IV ceftriaxone. Patient's disposition is pending her resolution or lack there of, of vomiting. 06:24 I assumed care of this patient from my colleague, physician assistant to the president Missy Dial at 02:00 hours The patient was treated with Reglan, ondansetron, droperidol, Regalin and 2 L of normal saline IV. Patient states that she still has nausea and has not been able to drink fluids. This is the patient's 4th visit in 4 days therefore do not think that she can be discharged home and I will discuss admission with the covering hospitalist. Differential Diagnosis Differential Diagnoses: The differential diagnosis associated with the presentation includes UIT Pyelonephritis Cyclical vomiting Admission/Observation Consideration of admission/observation: Escalation of care including admission/observation considered Patient's disposition will be determined after resolution or lack thereof, of symptoms. Lab Data [facility] Lab Attestation statement: I reviewed the patient's lab results. My interpretation of these results are in the [facility] Rationale portion of this note. 07/19/23 14:01 07/19/23 14:01 Labs: Lab Results 07/19/23 07/19/23 Range/Units 14:01 22:43 WBC 11.4 H (4.8-10.8) X10*3/uL RBC 4.31 (4.20-5.50) X10*6/uL Hgb 12.1 (12.0-16.0) g/dl Hct 35.4 L (37.0-47.0) % MCV 82.1 (80.0-98.0) fL MCH 28.1 (27.0-33.0) pg MCHC 34.2 (31.0-35.0) g/dl RDW 12.9 (11.0-16.0) % Plt Count 164 (160-400) X10*3/uL MPV 11.0 (9.4-12.3) fL Immature Gran % (Auto) 0.3 (0.0-0.4) % Neut % (Auto) 84.2 H (45-73) % Lymph % (Auto) 9.6 L (20-40) % Emanuel % (Auto) 5.6 (2-11) % Eos % (Auto) 0.1 (0-4) % Baso % (Auto) 0.2 (0-2) % Lymph # (Auto) 1.1 L (1.2-4.9) X10*3/uL Emanuel # (Auto) 0.6 (0.1-1.2) X10*3/uL Eos # (Auto) 0.0 (0.0-0.4) X10*3/uL Baso # (Auto) 0.0 (0.0-0.2) X10*3/uL Abs Immat Gran (auto) 0.04 H (0.00-0.03) X10*3/uL Absolute Neuts (auto) 9.6 H (2.0-8.3) x10*3/uL Absolute Nucleated RBC 0.000 (0.0-0.012) X10*3/uL Nucleated RBC % (auto) 0.0 (0.0-0.2) /100WBC Sodium 142 (135-145) mmol/L Potassium 3.3 (3.3-5.1) mmol/L Chloride 106 (96-108) mmol/L Carbon Dioxide 22 (22-29) mmol/L Anion Gap 17 (12-20) BUN 11 (9-16) mg/dL Creatinine 0.72 (0.5-1.4) mg/dL Estim Creat Clear Calc 70.8 Estimated GFR > 60 Random Glucose 84 (60-115) mg/dL Calcium 9.0 (8.4-10.2) mg/dL Total Bilirubin 0.9 (0.0-1.0) mg/dL AST 34 H (5-31) U/L ALT 34 H (0-31) U/L Alkaline Phosphatase 48 (39-117) U/L Total Protein 7.2 (6.5-8.0) g/dL Albumin 4.2 (3.5-5.0) g/dL Beta HCG, Quant < 2 mIU/mL Urine Color Yellow Urine Appearance Cloudy Urine pH 5.5 (5.0-9.0) Ur Specific Delta 1.025 (1.005-1.025) Urine Protein 30 (1+) H (Neg-Trace) mg/dL Urine Glucose (UA) Negative (Negative) mg/dL Urine Ketones >=160 (Negative) mg/dL Urine Blood Negative (Negative) Urine Nitrite Negative (Negative) Ur Leukocyte Esterase Small (1+) H (Negative) Urine RBC 0-2 (0-2) /HPF Urine WBC 21-50 H (0-5) /HPF Ur Squamous Epith Cells 6-10 (0-2) /HPF Urine Bacteria 1+ (None Seen) Hyaline Casts 0-2 (0-2) /LPF Urine Opiates Screen Not Detected (Not Detect) Urine Fentanyl Screen Not Detected (Not Detect) Ur Barbiturates Screen Not Detected (Not Detect) Ur Phencyclidine Scrn Not Detected (Not Detect) Ur Amphetamines Screen Not Detected (Not Detect) U Benzodiazepines Scrn Not Detected (Not Detect) Urine Cocaine Screen Not Detected (Not Detect) U Marijuana (THC) Screen POSITIVE H (Not Detect) Influenza Type A (PCR) NEGATIVE (Negative) Influenza Type B (PCR) NEGATIVE (Negative) RSV RNA Qual (PCR) NEGATIVE (Negative) SARS-CoV-2 RNA (RT-PCR) NEGATIVE (Negative) Critical Care Time Critical Care Time Critical Care Time: Yes Total Critical Care Time: 45 Attestation: I spent 45 minutes of Critical Care Time with this patient. This does not include time spent on separately reported billable procedures.
[2023-07-19 13:32] VITALS: BP 133/75; PULSE 60; RESP 16; TEMP 36.6; O2SAT 99; BMI 21.6
[2023-07-19 14:06] LABS: MANUAL DIFF FLAG NO
[2023-07-19 14:08] LABS: Basophils Percent Auto 0.2 % (0-2); Eosinophils Percent Auto 0.1 % (0-4); Hematocrit 35.4 % (37.0-47.0); Hemoglobin 12.1 g/dl (12.0-16.0); Imm Gran Abs Auto 0.04 X10*3/uL (0.00-0.03); Imm Gran Pct Auto 0.3 % (0.0-0.4); Lymphocytes Absolute Auto 1.1 X10*3/uL (1.2-4.9); Lymphocytes Percent Auto 9.6 % (20-40); Mean Corpuscular HGB Conc 34.2 g/dl (31.0-35.0); Mean Corpuscular Hemoglobin 28.1 pg (27.0-33.0); Mean Corpuscular Volume 82.1 fL (80.0-98.0); Monocytes Absolute Auto 0.6 X10*3/uL (0.1-1.2); Monocytes Percent Auto 5.6 % (2-11); Neutrophils Absolute Auto 9.6 x10*3/uL (2.0-8.3); Neutrophils Percent Auto 84.2 % (45-73); Platelet Count 164 X10*3/uL (160-400); Red Blood Count 4.31 X10*6/uL (4.20-5.50); Red Cell Distribution Width 12.9 % (11.0-16.0); White Blood Count 11.4 X10*3/uL (4.8-10.8)
[2023-07-19 14:45] LABS: Alanine Aminotransferase 34 U/L (0-31); Albumin Level 4.2 g/dL (3.5-5.0); Alkaline Phosphatase 48 U/L (39-117); Anion Gap 17 (12-20); Aspartate Amino Transferase 34 U/L (5-31); Bilirubin Total 0.9 mg/dL (0.0-1.0); Blood Urea Nitrogen 11 mg/dL (9-16); Carbon Dioxide 22 mmol/L (22-29); Chloride 106 mmol/L (96-108); Creatinine Clr Calc Pharmacy 70.8; Estimated Glomerular Filt Rate > 60; Glucose Random 84 mg/dL (60-115); Potassium 3.3 mmol/L (3.3-5.1); Sodium 142 mmol/L (135-145); Total Protein 7.2 g/dL (6.5-8.0)
[2023-07-19 14:47] LABS: HCG Quantitative < 2 mIU/mL
[2023-07-19 15:19] LABS: Influenza A PCR NEGATIVE (Negative); Influenza B PCR NEGATIVE (Negative); Resp Syncy Virus RNA Qual PCR NEGATIVE (Negative); SARS COV2 PCR INHOUSE NEGATIVE (Negative)
[2023-07-19] MEDS: 0.9 % Sodium Chloride 1,000 ML 999 ML IV (21:09)
[2023-07-19] MEDS: droPERidol 5 MG/2 ML VIAL 1.25 MG IVPUSH (21:09)
--- NOTE | 2023-07-19 22:02 | PC.NURSE ---
nurse called to pt room, pt vomiting, PA aware, new order reglan received.
[2023-07-19] MEDS: Metoclopramide HCl 10 MG/2 ML VIAL IVPUSH (22:06)
[2023-07-19 22:50] LABS: Appearance Urine Cloudy; Color Urine Yellow; Glucose Urine UA Negative (Negative); Leukocyte Esterase Urine Small (1+) (Negative); Nitrite Urine Negative (Negative); PH 5.5 (5.0-9.0); Specific Gravity - Urine 1.025 (1.005-1.025); UMIC TRIGGER UACC YES; Urine Blood Negative (Negative); Urine Ketones >=160 mg/dL (Negative); Urine Protein 30 (1+) mg/dL (Neg-Trace)
[2023-07-19 22:55] LABS: Bacteria Urine 1+ (None Seen); Hyaline Casts Urine 0-2 /LPF (0-2); RBC Urine 0-2 /HPF (0-2); UACC Culture Trigger YES; WBC Urine 21-50 /HPF (0-5)
[2023-07-19 23:01] LABS: Amphetamine Screen Urine Not Detected (Not Detect); Barbiturates, Urine Not Detected (Not Detect); Benzodiazepines Screen Urine Not Detected (Not Detect); Cannabinoid Screen Urine POSITIVE (Not Detect); Cocaine Screen Urine Not Detected (Not Detect); Fentanyl, urine Not Detected (Not Detect); Opiate Screen Urine Not Detected (Not Detect); Phencyclidine Screen Urine Not Detected (Not Detect)
[2023-07-19] MEDS: cefTRIAXone sodium 1 GM in 0.9 % Sodium Chloride 50 ML IV (23:18)
[2023-07-20] VITALS (7 sets, daily range): BP systolic 112–130; BP diastolic 59–71; PULSE 58–77; RESP 14–19; TEMP 36.3–37.5; O2SAT 98–100
[2023-07-20] MEDS: ondansetron HCL 4 MG/2 ML VIAL IVPUSH ×4 (00:49→21:27)
[2023-07-20] MEDS: 0.9 % Sodium Chloride 1,000 ML 999 ML IV (00:49)
--- NOTE | 2023-07-20 00:49 | PC.NURSE ---
pt medicated per mar with zofran and second liter bolus of normal saline, as pt had no relief of vomiting symptoms from prior droperidol and reglan administration per pt. pt mother is at bedside. Repeat CT scan to be done. #20g iv RAC.
[2023-07-20] MEDS: iohexoL 350 MG/ML 100 ML INFUS..BTL 85 ML IV (01:30)
--- NOTE | 2023-07-20 07:13 | PC.NURSE ---
pt alert speaking clear full sentences, reports feeling a little bit better than earlier, pt to be admitted to hospital for intractable n/v. mother at bedside. call campos in room plan of care ongoing
--- NOTE | 2023-07-20 08:18 | PHA.MEDREC ---
Pharmacy Consult ? Medication Reconciliation Pharmacy has completed the medication reconciliation.
[2023-07-20] MEDS: Lidocaine HCl 4 % Topical 50 ML SOLUTION 1 APPL TOPICAL (09:42)
[2023-07-20] MEDS: Lidocaine 4 % Patch ADH..PATCH 1 PATCH TRANSDERMA (11:31)
[2023-07-20] MEDS: Pantoprazole Sodium 40 MG/10 ML VIAL IVPUSH ×2 (11:31→19:51)
[2023-07-20] MEDS: Lactated Ringers 1,000 ML 100 ML IVCONT (11:32)
--- NOTE | 2023-07-20 11:58 | PC.NURSE ---
PT C/O EPIGASRTIC PAIN FROM VOMITING. ENDORSES NAUSEA. NO VOMITING OBSERVED AT THIS TIME. PT UP TO BATHROOM. FEELS WEAK. MEDICATED PER EMR. ADVISED OF NPO STATUS, AWARE OF PLAN FOR CARE AND ADMISSION FOR OBS. MM DRY, APPEARS SLIGHTLY PALE. CONT IVF RUNNING. WCTM.
--- NOTE | 2023-07-20 12:36 | P.HPHOSP_ITS ---
History of Present Illness Date of Service: 07/20/23 Attending physician on admission: Caden Dougherty Chief Complaint: persistent nausea/vomiting 42 y/o F with Pmhx of anxiety, asthma, and depression ,active marijuana use presenting to ED- with consistent nausea, vomiting, and epigastric discomfort on 07/19/23 -has persistent nausea/vomiting for 4 days and afterwards startinf feeling epigastric discomfort ,unable to take po so decided to come to hospital . denies eating outside food or sick contact or antibiotics use .no fever or chills .in ED:received reglan ,zofran, phergan -did not improve ,so requested admission for persistent nausea/vomiting. Denies any new complaint of chest pain or shortness of breath or fever or chills or cough or headaches or weakness or numbness. labs imaging reviewed : drug screen positive for marijuana cbc: wbc 11.4 cmp -seems fine except -mild lft's elevated (which also seems ch on/off). CT/CT abdomen pelvis w IV con IMPRESSION: 1. Gastric fold thickening, correlate clinically for gastritis. 2. Scattered hepatic hypodensities likely small cysts. Review of Systems 2 Review of Systems: Yes all other systems are reviewed and are negative [facility] Medical History Marijuana abuse Anxiety Depressed Asthma Social History Unable to assess alcohol history related to: Unknown Alcohol intake: current Alcohol intake frequency: holidays/special occasions only Patient Tobacco Use Status: Never used Tobacco Smoked in Last 30 Days: Yes Use of substances other than those prescribed or required for medical reasons: Yes Substance Use Type: Marijuana Last Used Substance: Days (ago) Advance Directives: No Advance Directives Information Provided: No Patient : No Meds Allergies Allergy/AdvReac Type Severity Reaction Status Date / Time heparin [HEPARIN] Allergy Severe HIT Verified 07/19/23 13:24 morphine [MORPHINE] Allergy Unknown N/A Verified 07/19/23 13:24 Active Medications: Current Medications Acetaminophen/Butalbital/Caffeine (Butalb/Acetamin/Caff 50/325/40 Tablet) 1 tab PO Q6H PRN PRN Reason: haeadace Albuterol Sulfate (Albuterol Sulfate 90 Mcg 8 Gm Inhaler) 2 puff INHALE QID PRN PRN Reason: Shortness Of Breath Lactated Ringer's (Lr) 1,000 mls @ 100 mls/hr IVCONT .Q10H [facility] Last Admin: 07/20/23 11:32 Dose: 100 mls/hr Lidocaine (Lidocaine 4 % Patch Adh..Patch) 1 patch TRANSDERMA DAILY [facility]; Protocol Last Admin: 07/20/23 11:31 Dose: 1 patch Ondansetron HCl (Ondansetron Hcl 4 Mg/2 Ml Vial) 4 mg IVPUSH Q6H [facility] Last Admin: 07/20/23 11:31 Dose: 4 mg Pantoprazole Sodium (Pantoprazole Sodium 40 Mg/10 Ml Vial) 40 mg IVPUSH BID [facility] Last Admin: 07/20/23 11:31 Dose: 40 mg Sodium Chloride (0.9 % Sodium Chloride Flush 3 Ml Syringe) 3 ml IVFLUSH QSHIFT [facility] Sumatriptan Succinate (Sumatriptan Succinate 50 Mg Tablet) 50 mg PO Q2H PRN PRN Reason: migraine headache Home Medications Medication Instructions Recorded Confirmed Last Taken Type albuterol sulfate 90 mcg/actuation 2 puff inhalation QID PRN 07/20/23 07/20/23 Unknown History aerosol inhaler (Ventolin HFA) Shortness Of Breath Physical Exam 2 Vital Signs and Narrative: Vital Signs: Last Vital Signs Temp 98.5 F 07/20/23 09:55 Pulse 63 07/20/23 09:55 Resp 14 07/20/23 09:55 BP 112/62 07/20/23 09:55 Pulse Ox 99 07/20/23 09:55 O2 Del Method Room Air 07/20/23 09:55 BMI result Body Mass Index 21.6 Physical exam: Appearance: Alert.? Oriented X3.? Eyes: Pupils equal, round and reactive to light.? Sclera nonicteric.? ENT: Pharynx normal.? Moist mucous membranes. cvs: rrr, [id number] . res: clear to auscultation ,no rhonchii or wheezing abd: no rebound or guarding ,epigastric discomfort, bs present. ext pulses present , no cyanosis . neuro: axo3 , nonfocal. Results Labs 07/19/23 14:01 07/19/23 14:01 Labs: Laboratory Results - last 24 hr 07/19/23 07/19/23 14:01 22:43 MCV 82.1 MCH 28.1 MCHC 34.2 RDW 12.9 Plt Count 164 MPV 11.0 Immature Gran % (Auto) 0.3 Neut % (Auto) 84.2 H Lymph % (Auto) 9.6 L [place] % (Auto) 5.6 Eos % (Auto) 0.1 Baso % (Auto) 0.2 Lymph # (Auto) 1.1 L [place] # (Auto) 0.6 Eos # (Auto) 0.0 Baso # (Auto) 0.0 Abs Immat Gran (auto) 0.04 H Absolute Neuts (auto) 9.6 H Absolute Nucleated RBC 0.000 Nucleated RBC % (auto) 0.0 Anion Gap 17 Estim Creat Clear Calc 70.8 Estimated GFR > 60 Random Glucose 84 Calcium 9.0 Total Bilirubin 0.9 AST 34 H ALT 34 H Alkaline Phosphatase 48 Total Protein 7.2 Albumin 4.2 Beta HCG, Quant < 2 Urine Color Yellow Urine Appearance Cloudy Urine pH 5.5 Ur Specific Jamul 1.025 Urine Protein 30 (1+) H Urine Glucose (UA) Negative Urine Ketones >=160 Urine Blood Negative Urine Nitrite Negative Ur Leukocyte Esterase Small (1+) H Urine RBC 0-2 Urine WBC 21-50 H Ur Squamous Epith Cells 6-10 Urine Bacteria 1+ Hyaline Casts 0-2 Urine Opiates Screen Not Detected Urine Fentanyl Screen Not Detected Ur Barbiturates Screen Not Detected Ur Phencyclidine Scrn Not Detected Ur Amphetamines Screen Not Detected U Benzodiazepines Scrn Not Detected Urine Cocaine Screen Not Detected U Marijuana (THC) Screen POSITIVE H Influenza Type A (PCR) NEGATIVE Influenza Type B (PCR) NEGATIVE RSV RNA Qual (PCR) NEGATIVE SARS-CoV-2 RNA (RT-PCR) NEGATIVE Imaging Radiologist's Impressions: Impressions Abdomen/Pelvis CT 07/20/23 01:25 IMPRESSION: 1. Gastric fold thickening, correlate clinically for gastritis. 2. Scattered hepatic hypodensities likely small cysts. Fleischner guidelines were followed. Assessment and Plan (1) Cyclical vomiting: Status: Acute Plan 42 y/o F with Pmhx of anxiety, asthma, and depression ,active marijuana use presenting to ED- with consistent nausea, vomiting, and epigastric discomfort . persistent nausea, vomiting-sec to possible cyclic vomitin due to marijuana use: unable to take po added iv hydration,zofran ,ppi, bowel rest ,lidocaine patch. possible gastritis:(? patientsays she follows up with Gi) added ppi lft's elevation: seems intermittently elevated chronic trend and if remain elevated -may need further wokrup. abnormal Ua: pyuria /bacteruria patient denies any symptoms given dose of ceftriaxone in ed. urine cultures pending avoid antibiotics until urine culture back and decide further course . asthma (mild intermitemt) stable, continue home meds. anxiety:no new symptoms, continue homemeds dvt prophylax: low risk, ambulate Patient will benefit from 24-48hrs stay in my clinical judgement -has persistent nausea, vomiting-sec to possible cyclic vomitin due to marijuana use which did not respond to hydration, antiemetic in ED , unable to take p.o.: Need IV hydration, antiemetics, ppi bowel rest as well as renal function/electrolytes monitering since not taking po and hopefully will able to tolerate po once improves. Quality Stroke Does the patient have a stroke diagnosis?: No VTE Prior VTE?: No VTE Risk Level:: Medical - moderate - high VTE Device Contraindication: N/A - Device Ordered VTE Drug Contraindication: N/A - Med Ordered
[2023-07-20] MEDS: LORazepam 2 MG/ML VIAL 1 MG IVPUSH ×2 (14:09→19:51)
[2023-07-20] MEDS: 0.9 % Sodium Chloride Flush 3 ML SYRINGE IVFLUSH ×2 (17:33→19:52)
--- NOTE | 2023-07-20 19:39 | PC.NURSE ---
Pt requesting ice chips, tiger text sent to Dr. Meléndez. ROXI to give pt ice chips per .
[2023-07-20] MEDS: Ketorolac Tromethamine 15 MG/ML VIAL IVPUSH (19:52)
[2023-07-21] MEDS: Lactated Ringers 1,000 ML 100 ML IVCONT ×2 (03:04→13:14)
[2023-07-21] MEDS: ondansetron HCL 4 MG/2 ML VIAL IVPUSH ×4 (03:25→20:50)
[2023-07-21 03:37] VITALS: BP 128/77; PULSE 64; RESP 18; TEMP 36.3; O2SAT 100
[2023-07-21 08:00] VITALS: BP 132/66; PULSE 59; RESP 18; TEMP 36.4; O2SAT 99
[2023-07-21] MEDS: Pantoprazole Sodium 40 MG/10 ML VIAL IVPUSH ×2 (09:45→20:47)
[2023-07-21] MEDS: Lidocaine 4 % Patch ADH..PATCH 1 PATCH TRANSDERMA (09:45)
[2023-07-21 11:24] VITALS: BP 148/96; PULSE 64; RESP 18; TEMP 36.6; O2SAT 99
--- NOTE | 2023-07-21 13:35 | MHC.CM.PN ---
pt lives with family she is independent has own ride home is not expected to need services when dcd
--- NOTE | 2023-07-21 14:15 | P.PNIM_ITS ---
Subjective Subjective Date of Service: 07/21/23 Interval History: Still nauseous but notes improvement since admission Review of Systems Denies chest pain Denies nausea vomiting diarrhea Denies fever chills Denies shortness of breath Physical Exam 2 Vital Signs: Vital Signs: Last Vital Signs Temp 97.8 F 07/21/23 11:24 Pulse 64 07/21/23 11:24 Resp 18 07/21/23 11:24 BP 148/96 H 07/21/23 11:24 Pulse Ox 99 07/21/23 11:24 O2 Del Method Room Air 07/21/23 11:24 BMI result Body Mass Index 21.6 Const: Other: Awake alert no acute distress Resp: Other: Clear to auscultation bilaterally no rales rhonchi wheezes Cardio: Other: No S4; positive S1; no S3 murmurs rubs or gallops GI: Other: Soft nontender nondistended normoactive bowel sounds Extrem: Other: No edema bilaterally Objective Data Active Medications Acetaminophen/Butalbital/Caffeine (Butalb/Acetamin/Caff 50/325/40 Tablet) 1 tab PO Q6H PRN PRN Reason: haeadace Albuterol Sulfate (Albuterol Sulfate 90 Mcg 8 Gm Inhaler) 2 puff INHALE QID PRN PRN Reason: Shortness Of Breath Lactated Ringer's (Lr) 1,000 mls @ 100 mls/hr IVCONT .Q10H [facility] Last Admin: 07/21/23 13:14 Dose: 100 mls/hr Documented By: TENZIN Promethazine HCl 6.25 mg/ (Sodium Chloride) 50.25 mls @ 201 mls/hr IV Q6H PRN PRN Reason: Nausea and Vomiting Last Admin: 07/21/23 13:31 Dose: 201 mls/hr Documented By: TENZIN Ketorolac Tromethamine (Ketorolac Tromethamine 15 Mg/Ml Vial) 15 mg IVPUSH Q6H PRN PRN Reason: Pain, Moderate(Pain Scale 4-6) Last Admin: 07/20/23 19:52 Dose: 15 mg Documented By: PEDRO Lidocaine (Lidocaine 4 % Patch Adh..Patch) 1 patch TRANSDERMA DAILY [facility]; Protocol Last Admin: 07/21/23 09:45 Dose: 1 patch Documented By: JAVIER Lorazepam (Lorazepam 2 Mg/Ml Vial) 1 mg IVPUSH ONCE PRN PRN Reason: anxiety/restlessness Last Admin: 07/20/23 19:51 Dose: 1 mg Documented By: PEDRO Ondansetron HCl (Ondansetron Hcl 4 Mg/2 Ml Vial) 4 mg IVPUSH Q6H [facility] Last Admin: 07/21/23 09:45 Dose: 4 mg Documented By: JAVIER Pantoprazole Sodium (Pantoprazole Sodium 40 Mg/10 Ml Vial) 40 mg IVPUSH BID [facility] Last Admin: 07/21/23 09:45 Dose: 40 mg Documented By: JAVIER Sodium Chloride (0.9 % Sodium Chloride Flush 3 Ml Syringe) 3 ml IVFLUSH QSHIFT [facility] Last Admin: 07/21/23 07:10 Dose: Not Given Documented By: JAVIER Non-Admin Reason: IV Running Sumatriptan Succinate (Sumatriptan Succinate 50 Mg Tablet) 50 mg PO Q2H PRN PRN Reason: migraine headache Labs 07/19/23 14:01 07/19/23 14:01 Microbiology Microbiology Results: Microbiology 07/19/23 Unknown Urine Culture - Final Urine clean catch - Urine mcgrath top Assessment and Plan (1) Cyclical vomiting: Status: Acute (2) Marijuana abuse: Status: Acute Plan 42 y/o F with Pmhx of anxiety, asthma, and depression ,active marijuana use presenting to ED- with consistent nausea, vomiting, and epigastric discomfort consistent with cyclic vomiting secondary to cannabis abuse 1. Cyclic vomiting secondary to cannabis abuse Patient slowly improving over time. Requesting some oral; regular diet implemented so patient can choose what she wishes to eat -volume/ zofran/PPI, -follow clinically -follow renals/divalents 2. Transaminitis Transaminitis likely related to volume/flow. Improving with volume repletion -follow daily LFTs -volume repletion with lactated Ringer's 3.Asthma (mild intermitemt) Not contributing to this admission. Follow clinically Patient will require ongoing hospitalization given her slow response to therapies including IV volume and antiemetics. Transaminitis slowly resolving. Patient is a high risk for outpatient failure at this time Quality Stroke Does the patient have a stroke diagnosis?: No VTE Prior VTE?: No VTE Risk Level:: Medical - moderate - high VTE Device Contraindication: N/A - Device Ordered VTE Drug Contraindication: N/A - Med Ordered
[2023-07-21 15:17] VITALS: BP 147/77; PULSE 62; RESP 20; TEMP 37.2; O2SAT 100
[2023-07-21] MEDS: 0.9 % Sodium Chloride Flush 3 ML SYRINGE IVFLUSH (16:16)
[2023-07-21 19:36] VITALS: BP 134/75; PULSE 66; RESP 20; TEMP 37.1; O2SAT 96
[2023-07-21] MEDS: Ketorolac Tromethamine 15 MG/ML VIAL IVPUSH (20:50)
[2023-07-21 23:31] VITALS: BP 135/74; PULSE 73; RESP 18; TEMP 36.3; O2SAT 100
[2023-07-22] MEDS: Lactated Ringers 1,000 ML 100 ML IVCONT (03:44)
[2023-07-22] MEDS: ondansetron HCL 4 MG/2 ML VIAL IVPUSH ×2 (03:45→09:55)
[2023-07-22 04:00] VITALS: BP 106/65; PULSE 67; RESP 16; TEMP 36; O2SAT 97
[2023-07-22 06:24] LABS: Basophils Percent Auto 0.3 % (0-2); Neutrophils Percent Auto 62.2 % (45-73); PLT CLUMP 1; Red Cell Distribution Width 12.4 % (11.0-16.0); SCAN SMEAR FLAG 1
[2023-07-22 06:26] LABS: Eosinophils Absolute Auto 0.1 X10*3/uL (0.0-0.4); Eosinophils Percent Auto 1.7 % (0-4); Hematocrit 35.4 % (37.0-47.0); Hemoglobin 12.5 g/dl (12.0-16.0); Imm Gran Abs Auto 0.02 X10*3/uL (0.00-0.03); Imm Gran Pct Auto 0.3 % (0.0-0.4); Lymphocytes Absolute Auto 2.1 X10*3/uL (1.2-4.9); Lymphocytes Percent Auto 27.8 % (20-40); MANUAL DIFF FLAG SCAN; Mean Corpuscular HGB Conc 35.3 g/dl (31.0-35.0); Mean Corpuscular Volume 79.4 fL (80.0-98.0); Monocytes Absolute Auto 0.6 X10*3/uL (0.1-1.2); Monocytes Percent Auto 7.7 % (2-11); Neutrophils Absolute Auto 4.7 x10*3/uL (2.0-8.3); Red Blood Count 4.46 X10*6/uL (4.20-5.50); White Blood Count 7.6 X10*3/uL (4.8-10.8)
[2023-07-22 06:39] LABS: Alanine Aminotransferase 31 U/L (0-31); Albumin Level 3.8 g/dL (3.5-5.0); Alkaline Phosphatase 46 U/L (39-117); Anion Gap 17 (12-20); Aspartate Amino Transferase 31 U/L (5-31); Blood Urea Nitrogen 4 mg/dL (9-16); Calcium 8.6 mg/dL (8.4-10.2); Carbon Dioxide 26 mmol/L (22-29); Chloride 97 mmol/L (96-108); Creatinine Clr Calc Pharmacy 72.8; Estimated Glomerular Filt Rate > 60; Potassium 2.7 mmol/L (3.3-5.1); Sodium 137 mmol/L (135-145); Total Protein 6.9 g/dL (6.5-8.0)
[2023-07-22 06:45] LABS: Glucose Fasting 51 mg/dL (60-99)
[2023-07-22 06:58] LABS: Glucose, Whole Blood 59 mg/dL (60-115)
[2023-07-22 07:12] VITALS: BP 127/67; PULSE 72; RESP 12; TEMP 36.2; O2SAT 98
[2023-07-22 07:13] LABS: Glucose, Whole Blood 58 mg/dL (60-115)
[2023-07-22 07:32] LABS: Glucose, Whole Blood 58 mg/dL (60-115)
[2023-07-22 08:16] LABS: Glucose, Whole Blood 63 mg/dL (60-115)
[2023-07-22 08:26] LABS: Platelet Count 136 X10*3/uL (160-400)
[2023-07-22 08:27] LABS: SLIDE REVIEW VERIFIED
[2023-07-22] MEDS: Pantoprazole Sodium 40 MG/10 ML VIAL IVPUSH (09:54)
[2023-07-22] MEDS: Lidocaine 4 % Patch ADH..PATCH 1 PATCH TRANSDERMA (09:56)
--- NOTE | 2023-07-22 10:46 | PC.NURSE ---
POC after a few sips of juice (pt unable to tolerate) [id number] [phone]- [phone]- [phone]- [phone]- [phone]- Pt c/o blurred vision, dizziness. Hands cramping. BP 135/[address] Faust notified and in to see pt. Pt anxious and crying at this time. IV Ativan ordered and given at 1023. Stat CT head ordered. Will continue to monitor.
[2023-07-22 11:16] VITALS: BP 159/91; PULSE 63; RESP 16; TEMP 36.7; O2SAT 100
--- NOTE | 2023-07-22 12:28 | MHC.CM.PN ---
PATIENT WILL REQUIRE 10-14 DAYS IF IV CEFEPIME. CURRENTLY ON DAY TWO REFERRALS TO [facility] SENT NO PICC LINE OF THIS NOTE
--- NOTE | 2023-07-22 12:51 | PC.NURSE ---
POC- 67 at [address] Faust in and spoke with pt and pt mom via hospital [place] studies director. IVF changed to D5LR 125/hr. IV Phenergan given for C/o nausea and vomiting. Pt resting in bed at this time
--- NOTE | 2023-07-22 12:59 | HO.PM.IMPN ---
Subjective Subjective Date of Service: 07/22/23 Interval History: Via anesthesiology physician; patient states after vomiting she could not see everything was black. Extremely anxious; Ativan with effect Review of Systems Denies chest pain Admits nausea vomiting no diarrhea Denies fever chills Denies shortness of breath Physical Exam Vital Signs: Vital Signs: Last Vital Signs Temp 98.0 F 07/22/23 11:16 Pulse 63 07/22/23 11:16 Resp 16 07/22/23 11:16 BP 159/91 H 07/22/23 11:16 Pulse Ox 100 07/22/23 11:16 O2 Del Method Room Air 07/22/23 11:16 BMI result Body Mass Index 21.6 Const: Other: Awake alert no acute distress Resp: Other: Clear to auscultation bilaterally no rales rhonchi wheezes Cardio: Other: No S4; positive S1; no S3 murmurs rubs or gallops GI: Other: Soft nontender nondistended normoactive bowel sounds Extrem: Other: No edema bilaterally Objective Data Active Medications Acetaminophen/Butalbital/Caffeine (Butalb/Acetamin/Caff 50/325/40 Tablet) 1 tab PO Q6H PRN PRN Reason: haeadace Albuterol Sulfate (Albuterol Sulfate 90 Mcg 8 Gm Inhaler) 2 puff INHALE QID PRN PRN Reason: Shortness Of Breath Promethazine HCl 6.25 mg/ (Sodium Chloride) 50.25 mls @ 201 mls/hr IV Q6H PRN PRN Reason: Nausea and Vomiting Last Infusion: 07/22/23 12:28 Dose: Infused Documented By: JUICE Dextrose/Lactated Ringer's (D5lr) 1,000 mls @ 125 mls/hr IVCONT .Q8H [facility] Last Admin: 07/22/23 12:26 Dose: 125 mls/hr Documented By: JUICE Ketorolac Tromethamine (Ketorolac Tromethamine 15 Mg/Ml Vial) 15 mg IVPUSH Q6H PRN PRN Reason: Pain, Moderate(Pain Scale 4-6) Last Admin: 07/21/23 20:50 Dose: 15 mg Documented By: TENZIN Lidocaine (Lidocaine 4 % Patch Adh..Patch) 1 patch TRANSDERMA DAILY [facility]; Protocol Last Admin: 07/22/23 09:56 Dose: 1 patch Documented By: JUICE Lorazepam (Lorazepam 2 Mg/Ml Vial) 1 mg IVPUSH ONCE PRN PRN Reason: anxiety/restlessness Last Admin: 07/20/23 19:51 Dose: 1 mg Documented By: PEDRO Lorazepam (Lorazepam 2 Mg/Ml Vial) 1 mg IVPUSH Q4H PRN PRN Reason: anxiety/restlessness Ondansetron HCl (Ondansetron Hcl 4 Mg/2 Ml Vial) 4 mg IVPUSH Q6H [facility] Last Admin: 07/22/23 09:55 Dose: 4 mg Documented By: JUICE Pantoprazole Sodium (Pantoprazole Sodium 40 Mg/10 Ml Vial) 40 mg IVPUSH BID [facility] Last Admin: 07/22/23 09:54 Dose: 40 mg Documented By: JUICE Sodium Chloride (0.9 % Sodium Chloride Flush 3 Ml Syringe) 3 ml IVFLUSH QSHIFT [facility] Last Admin: 07/22/23 07:16 Dose: Not Given Documented By: JUICE Non-Admin Reason: IV Running Sumatriptan Succinate (Sumatriptan Succinate 50 Mg Tablet) 50 mg PO Q2H PRN PRN Reason: migraine headache Labs 07/22/23 05:38 07/22/23 05:38 Labs: Laboratory Results - last 24 hr 07/22/23 07/22/23 07/22/23 05:38 06:54 07:09 MCV 79.4 L MCH 28.0 MCHC 35.3 H RDW 12.4 Plt Count 136 L MPV Not Reportable Immature Gran % (Auto) 0.3 Neut % (Auto) 62.2 Lymph % (Auto) 27.8 [place] % (Auto) 7.7 Eos % (Auto) 1.7 Baso % (Auto) 0.3 Lymph # (Auto) 2.1 [place] # (Auto) 0.6 Eos # (Auto) 0.1 Baso # (Auto) 0.0 Abs Immat Gran (auto) 0.02 Absolute Neuts (auto) 4.7 Absolute Nucleated RBC 0.000 Nucleated RBC % (auto) 0.0 Smear Tech's Comments VERIFIED Anion Gap 17 Estim Creat Clear Calc 72.8 Estimated GFR > 60 POC Glucose 59 L* 58 L* Fasting Glucose 51 L* Calcium 8.6 Total Bilirubin 1.0 AST 31 ALT 31 Alkaline Phosphatase 46 Total Protein 6.9 Albumin 3.8 07/22/23 07/22/23 07/22/23 07:28 08:12 09:46 MCV MCH MCHC RDW Plt Count MPV Immature Gran % (Auto) Neut % (Auto) Lymph % (Auto) [place] % (Auto) Eos % (Auto) Baso % (Auto) Lymph # (Auto) [place] # (Auto) Eos # (Auto) Baso # (Auto) Abs Immat Gran (auto) Absolute Neuts (auto) Absolute Nucleated RBC Nucleated RBC % (auto) Smear Tech's Comments Anion Gap Estim Creat Clear Calc Estimated GFR POC Glucose 58 L* 63 92 Fasting Glucose Calcium Total Bilirubin AST ALT Alkaline Phosphatase Total Protein Albumin 07/22/23 07/22/23 10:50 12:06 MCV MCH MCHC RDW Plt Count MPV Immature Gran % (Auto) Neut % (Auto) Lymph % (Auto) [place] % (Auto) Eos % (Auto) Baso % (Auto) Lymph # (Auto) [place] # (Auto) Eos # (Auto) Baso # (Auto) Abs Immat Gran (auto) Absolute Neuts (auto) Absolute Nucleated RBC Nucleated RBC % (auto) Smear Tech's Comments Anion Gap Estim Creat Clear Calc Estimated GFR POC Glucose 67 71 Fasting Glucose Calcium Total Bilirubin AST ALT Alkaline Phosphatase Total Protein Albumin Microbiology Microbiology Results: Microbiology 07/19/23 Unknown Urine Culture - Final Urine clean catch - Urine mcgrath top Assessment and Plan (1) Cyclical vomiting: Status: Acute (2) Marijuana abuse: Status: Acute Plan 42 y/o F with Pmhx of anxiety, asthma, and depression ,active marijuana use presenting to ED- with consistent nausea, vomiting, and epigastric discomfort consistent with cyclic vomiting secondary to cannabis abuse 1. Cyclic vomiting secondary to cannabis abuse Tolerated small amounts of p.o. however this a.m. had chocolate in grapes and vomited. Became extremely anxious and stated that she was blind the later stated this was transient. Ativan given. CT of head negative for acute issues. Sugars have been running low. Will add dextrose -volume (D5 LR)/ zofran/PPI, -follow clinically -follow renals/divalents 2. Transaminitis Transaminitis likely related to volume/flow. Normalized with volume repletion -follow daily LFTs -volume repletion with lactated Ringer's 3.Asthma (mild intermitemt) Not contributing to this admission. Follow clinically 4. Hypokalemia -will replete IV -follow renals/divalents Patient will require ongoing hospitalization given her slow response to therapies including IV volume and antiemetics. Transaminitis slowly resolving. Patient is a high risk for outpatient failure at this time Quality Stroke Does the patient have a stroke diagnosis?: No VTE Prior VTE?: No VTE Risk Level:: Medical - moderate - high VTE Device Contraindication: N/A - Device Ordered VTE Drug Contraindication: N/A - Med Ordered
--- NOTE | 2023-07-22 13:32 | MHC.CM.PN ---
Patient reports being active with [place] female at [facility] but unable to recall the name she also reports that she saw her 2-3 months ago. AMISHANA updated in [facility].
--- NOTE | 2023-07-22 14:10 | MHC.CM.PN ---
PATIENT WAS LAST SEEN IN JULY 2022. [facility] AWAITING CONFIRMATION THAT PCP WILL SIGN ORDERS SO THAT PATIENT CAN RECEIVE SERVICES. [facility] WAS ON SITE AND AWARE OF THE REFERRAL. NO PICC OF THIS NOTE
[2023-07-22 15:08] VITALS: BP 138/54; PULSE 65; RESP 18; TEMP 36.6; O2SAT 100
--- NOTE | 2023-07-22 17:41 | PC.NURSE ---
1500_ Pt states her vision is to her normal.
[2023-07-22] MEDS: 0.9 % Sodium Chloride Flush 3 ML SYRINGE IVFLUSH (19:28)
[2023-07-22 20:00] VITALS: BP 113/76; PULSE 59; RESP 18; TEMP 36.6; O2SAT 100
[2023-07-22 23:50] VITALS: BP 128/78; PULSE 62; RESP 16; TEMP 36.1; O2SAT 98
[2023-07-23 04:00] VITALS: BP 121/59; PULSE 54; RESP 14; TEMP 37.2; O2SAT 94
[2023-07-23 04:38] LABS: Glucose, Whole Blood 144 mg/dL (60-115)
[2023-07-23 06:31] LABS: Alanine Aminotransferase 22 U/L (0-31); Albumin Level 3.5 g/dL (3.5-5.0); Alkaline Phosphatase 40 U/L (39-117); Anion Gap 12 (12-20); Aspartate Amino Transferase 18 U/L (5-31); Bilirubin Total 0.8 mg/dL (0.0-1.0); Blood Urea Nitrogen 3 mg/dL (9-16); Calcium 8.5 mg/dL (8.4-10.2); Carbon Dioxide 30 mmol/L (22-29); Chloride 99 mmol/L (96-108); Creatinine Clr Calc Pharmacy 68.9; Estimated Glomerular Filt Rate > 60; Glucose Fasting 127 mg/dL (60-99); Potassium 2.3 mmol/L (3.3-5.1); Sodium 139 mmol/L (135-145); Total Protein 5.9 g/dL (6.5-8.0)
--- NOTE | 2023-07-23 06:37 | PC.NURSE ---
hourly rounding throughout the night no significant symptoms. pt states that feels better. no blurry vision, no nauseate, pt refused to have schedule zofran at 04:15. random glucose check 144. pt mother at the bedside for the emotional support. this morning received critical K+ 2.3L. dr. Meléndez notified. Dr. gutierrez will order K+ replace. will continue to monitor any changes of symptoms.
[2023-07-23 08:00] VITALS: BP 104/56; PULSE 60; RESP 18; TEMP 36.4; O2SAT 97
[2023-07-23] MEDS: LORazepam 2 MG/ML VIAL 1 MG IVPUSH (10:20)
--- NOTE | 2023-07-23 12:06 | HO.PM.IMPN ---
Subjective Subjective Date of Service: 07/23/23 Interval History: Continues to be nauseous; unable to take oral Review of Systems Denies chest pain Admits nausea vomiting no diarrhea Denies fever chills Denies shortness of breath Physical Exam Vital Signs: Vital Signs: Last Vital Signs Temp 97.6 F 07/23/23 08:00 Pulse 60 07/23/23 08:00 Resp 18 07/23/23 08:00 BP 104/56 L 07/23/23 08:00 Pulse Ox 97 07/23/23 08:00 O2 Del Method Room Air 07/23/23 08:00 BMI result Body Mass Index 21.6 Const: Other: Awake alert no acute distress Resp: Other: Clear to auscultation bilaterally no rales rhonchi wheezes Cardio: Other: No S4; positive S1; no S3 murmurs rubs or gallops GI: Other: Soft nontender nondistended normoactive bowel sounds Extrem: Other: No edema bilaterally Objective Data Active Medications Acetaminophen/Butalbital/Caffeine (Butalb/Acetamin/Caff 50/325/40 Tablet) 1 tab PO Q6H PRN PRN Reason: haeadace Albuterol Sulfate (Albuterol Sulfate 90 Mcg 8 Gm Inhaler) 2 puff INHALE QID PRN PRN Reason: Shortness Of Breath Promethazine HCl 6.25 mg/ (Sodium Chloride) 50.25 mls @ 201 mls/hr IV Q6H PRN PRN Reason: Nausea and Vomiting Last Admin: 07/23/23 11:50 Dose: 201 mls/hr Documented By: JUICE Dextrose/Lactated Ringer's (D5lr) 1,000 mls @ 125 mls/hr IVCONT .Q8H [facility] Last Admin: 07/23/23 04:02 Dose: 125 mls/hr Documented By: ERINN Ketorolac Tromethamine (Ketorolac Tromethamine 15 Mg/Ml Vial) 15 mg IVPUSH Q6H PRN PRN Reason: Pain, Moderate(Pain Scale 4-6) Last Admin: 07/21/23 20:50 Dose: 15 mg Documented By: TENZIN Lidocaine (Lidocaine 4 % Patch Adh..Patch) 1 patch TRANSDERMA DAILY [facility]; Protocol Last Admin: 07/23/23 08:26 Dose: 1 patch Documented By: JUICE Lorazepam (Lorazepam 2 Mg/Ml Vial) 1 mg IVPUSH ONCE PRN PRN Reason: anxiety/restlessness Last Admin: 07/23/23 10:20 Dose: 1 mg Documented By: JUICE Lorazepam (Lorazepam 2 Mg/Ml Vial) 1 mg IVPUSH Q4H PRN PRN Reason: anxiety/restlessness Ondansetron HCl (Ondansetron Hcl 4 Mg/2 Ml Vial) 4 mg IVPUSH Q6H [facility] Last Admin: 07/23/23 10:09 Dose: 4 mg Documented By: JUICE Potassium Chloride (Potassium Chloride Packet 20 Meq Packet) 40 meq PO BID [facility] Stop: 07/24/23 09:01 Last Admin: 07/23/23 11:55 Dose: Not Given Documented By: JUICE Non-Admin Reason: unable due to vomting Sodium Chloride (0.9 % Sodium Chloride Flush 3 Ml Syringe) 3 ml IVFLUSH QSHIFT [facility] Last Admin: 07/23/23 08:28 Dose: Not Given Documented By: JUICE Non-Admin Reason: IV Running Sumatriptan Succinate (Sumatriptan Succinate 50 Mg Tablet) 50 mg PO Q2H PRN PRN Reason: migraine headache Labs 07/23/23 05:24 07/23/23 05:24 Labs: Laboratory Results - last 24 hr 07/22/23 07/23/23 07/23/23 12:06 04:34 05:24 MCV 79.5 L MCH 27.9 MCHC 35.1 H RDW 12.3 Plt Count 153 L MPV 12.2 Immature Gran % (Auto) 0.3 Neut % (Auto) 49.6 Lymph % (Auto) 36.9 [place] % (Auto) 10.1 Eos % (Auto) 2.6 Baso % (Auto) 0.5 Lymph # (Auto) 2.2 [place] # (Auto) 0.6 Eos # (Auto) 0.2 Baso # (Auto) 0.0 Abs Immat Gran (auto) 0.02 Absolute Neuts (auto) 3.0 Absolute Nucleated RBC 0.000 Nucleated RBC % (auto) 0.0 Anion Gap 12 Estim Creat Clear Calc 68.9 Estimated GFR > 60 POC Glucose 71 144 H Fasting Glucose 127 H Calcium 8.5 Total Bilirubin 0.8 AST 18 ALT 22 Alkaline Phosphatase 40 Total Protein 5.9 L Albumin 3.5 Assessment and Plan (1) Cyclical vomiting: Status: Acute Plan 42 y/o F with Pmhx of anxiety, asthma, and depression ,active marijuana use presenting to ED- with consistent nausea, vomiting, and epigastric discomfort consistent with cyclic vomiting secondary to cannabis abuse 1. Cyclic vomiting secondary to cannabis abuse Today vomiting with anything p.o.. Continues to require Zofran and Phenergan -volume (D5 LR)/ zofran/PPI, -GI consult -follow clinically -follow renals/divalents 2. Transaminitis Transaminitis likely related to volume/flow. Normalized with volume repletion -follow daily LFTs -volume repletion with lactated Ringer's 3.Asthma (mild intermitemt) Not contributing to this admission. Follow clinically 4. Hypokalemia -will replete IV -follow renals/divalents Patient will require ongoing hospitalization given her slow response to therapies including IV volume and antiemetics. Transaminitis slowly resolving. Patient is a high risk for outpatient failure at this time given inability to take p.o. Quality Stroke Does the patient have a stroke diagnosis?: No VTE Prior VTE?: No VTE Risk Level:: Medical - moderate - high VTE Device Contraindication: N/A - Device Ordered VTE Drug Contraindication: N/A - Med Ordered
--- NOTE | 2023-07-23 14:53 | PM.GICN ---
History of Present Illness Data of Consult Service Date: 07/23/23 Requesting physician: Toni Faust Primary Care Provider: None Physician HPI Reason for consult: Cyclic vomiting syndrome 42 y/o F with anxiety, asthma, and depression ,active marijuana use seen at [facility] on 07/19/23 with nausea, vomiting, and abdominal pain. Patient stated that she had been to [facility] ED 4 times for persistent nausea, vomiting, and abdominal pain and pt felt her symptoms were getting worse. She admitted to smoking marijuana. Pt stated she was unable to take po so decided to come to hospital . She denied eating restaurant food or sick contact or antibiotics use . History obtained from the patient's mom with the help of a Kinyarwanda speech and language specialist (since pt appeared sleepy after receiving IV lorazepam) Mom denied past evaluation with EGD Pt has a hx of migraine [facility]IAN[facility]'s Pt denied fever or chills, chest pain or shortness of breath, cough or headaches or weakness or numbness. . In the ED pt was treated with Reglan ,zofran, phergan -symptoms did not improve ,so admission was requested for further management. drug screen positive for marijuana cbc: wbc 11.4 cmp showed mildly elevated LFTs (intermittently elevated on past labs). 07/20/[address] SCAN SHOWED 1. Gastric fold thickening, correlate clinically for gastritis. 2. Scattered hepatic hypodensities likely small cysts. Review of Systems Review of Systems: Yes all other systems are reviewed and are negative [facility] Past Medical History Medical History (Updated 08/03/23 @ 00:01 by Aditi Joshi) Marijuana abuse Anxiety Depressed Asthma Social History Social History Unable to assess alcohol history related to: Unknown Alcohol intake: current Alcohol intake frequency: holidays/special occasions only Comment: pt's mother at the bedside, emotional support Patient Tobacco Use Status: Never used Tobacco Substance Use Type: Marijuana service: No Meds Allergies Allergy/AdvReac Type Severity Reaction Status Date / Time heparin [HEPARIN] Allergy Severe HIT Verified 07/19/23 13:24 morphine [MORPHINE] Allergy Unknown N/A Verified 07/19/23 13:24 Active Medications: Current Medications Acetaminophen/Butalbital/Caffeine (Butalb/Acetamin/Caff 50/325/40 Tablet) 1 tab PO Q6H PRN PRN Reason: haeadace Albuterol Sulfate (Albuterol Sulfate 90 Mcg 8 Gm Inhaler) 2 puff INHALE QID PRN PRN Reason: Shortness Of Breath Promethazine HCl 6.25 mg/ (Sodium Chloride) 50.25 mls @ 201 mls/hr IV Q6H PRN PRN Reason: Nausea and Vomiting Last Infusion: 07/23/23 12:16 Dose: Infused Dextrose/Lactated Ringer's (D5lr) 1,000 mls @ 125 mls/hr IVCONT .Q8H [facility] Last Admin: 07/23/23 13:16 Dose: 125 mls/hr Ketorolac Tromethamine (Ketorolac Tromethamine 15 Mg/Ml Vial) 15 mg IVPUSH Q6H PRN PRN Reason: Pain, Moderate(Pain Scale 4-6) Last Admin: 07/21/23 20:50 Dose: 15 mg Lidocaine (Lidocaine 4 % Patch Adh..Patch) 1 patch TRANSDERMA DAILY [facility]; Protocol Last Admin: 07/23/23 08:26 Dose: 1 patch Lorazepam (Lorazepam 2 Mg/Ml Vial) 1 mg IVPUSH ONCE PRN PRN Reason: anxiety/restlessness Last Admin: 07/23/23 10:20 Dose: 1 mg Lorazepam (Lorazepam 2 Mg/Ml Vial) 1 mg IVPUSH Q4H PRN PRN Reason: anxiety/restlessness Ondansetron HCl (Ondansetron Hcl 4 Mg/2 Ml Vial) 4 mg IVPUSH Q6H [facility] Last Admin: 07/23/23 10:09 Dose: 4 mg Potassium Chloride (Potassium Chloride Packet 20 Meq Packet) 40 meq PO BID [facility] Stop: 07/24/23 09:01 Last Admin: 07/23/23 11:55 Dose: Not Given Sodium Chloride (0.9 % Sodium Chloride Flush 3 Ml Syringe) 3 ml IVFLUSH QSHIFT [facility] Last Admin: 07/23/23 14:47 Dose: Not Given Sumatriptan Succinate (Sumatriptan Succinate 50 Mg Tablet) 50 mg PO Q2H PRN PRN Reason: migraine headache Home Medications Medication Instructions Recorded Confirmed Last Taken Type albuterol sulfate 90 mcg/actuation 2 puff inhalation QID PRN 07/20/23 07/20/23 Unknown History aerosol inhaler (Ventolin HFA) Shortness Of Breath Physical Exam Vital Signs: Vital Signs: Last Vital Signs Temp 97.6 F 07/23/23 08:00 Pulse 60 07/23/23 08:00 Resp 18 07/23/23 08:00 BP 104/56 L 07/23/23 08:00 Pulse Ox 97 07/23/23 08:00 O2 Del Method Room Air 07/23/23 08:00 BMI result Body Mass Index 21.6 Const: General: other (drowsy and arousable after receiving IV lorazepam) Nutritional Appearance: average body habitus Orientation/consciousness: patient oriented x3 Limitations: no limitations HEENT: Head: Yes normal to inspection Eyes: Sclerae: sclerae normal Pupils: Equal, round and reactive pupils present Neck: Neck: Yes normal visual inspection Chest: Chest palpation & inspection: normal inspection of the chest Resp: Effort & Inspection: normal respiratory effort Auscultation: clear to auscultation bilaterally Cardio: Palpation: normal PMI Rate: regular rate Rhythm: regular rhythm Heart sounds: S1 normal heart sound present, S2 normal heart sound present and no murmurs GI: Palpation (GI): Soft to palpation, nontender and No hepatosplenomegaly present Auscultation: normal bowel sounds Rectal Exam - Female: deferred Skin: General skin exam: no rashes or lesions noted Neuro: General: patient oriented x3, gait normal and moves all extremities Cranial nerves: Yes Equal, round and reactive pupils present Psych: Appearance: grossly normal Mental Status: mental status grossly normal Results Labs 07/24/23 05:55 07/26/23 12:51 Labs: Short CBC 07/23/23 Range/Units 05:24 WBC 6.1 (4.8-10.8) X10*3/uL Hgb 12.8 (12.0-16.0) g/dl Hct 36.5 L (37.0-47.0) % Plt Count 153 L (160-400) X10*3/uL BMP 07/23/23 05:24 Sodium 139 Potassium 2.3 L* Chloride 99 Carbon Dioxide 30 H BUN 3 L Creatinine 0.74 Calcium 8.5 Liver Function 07/23/23 Range/Units 05:24 Total Bilirubin 0.8 (0.0-1.0) mg/dL AST 18 (5-31) U/L ALT 22 (0-31) U/L Alkaline Phosphatase 40 (39-117) U/L Albumin 3.5 (3.5-5.0) g/dL Microbiology Microbiology Results: Microbiology 07/19/23 Unknown Urine clean catch - Urine mcgrath top Urine Culture - Final Assessment and Plan (1) Marijuana abuse: Status: Acute (2) Cyclical vomiting: Status: Resolved Plan 42 y/o F with anxiety, asthma, and depression ,active marijuana use seen at [facility] on 07/19/23 with nausea, vomiting, and abdominal pain. Patient stated that she had been to [facility] ED 4 times for persistent nausea, vomiting, and abdominal pain and pt felt her symptoms were getting worse. She admitted to smoking marijuana. Pt stated she was unable to take po so decided to come to hospital . History obtained from the patient's mom with the help of a Kinyarwanda speech and language specialist (since pt appeared sleepy after receiving IV lorazepam) Mom denied past evaluation with EGD Pt has a hx of migraine [facility]STIANSON's In the ED pt was treated with Reglan, zofran, phergan -symptoms did not improve ,so admission was requested for further management. drug screen positive for marijuana. Abdominal CT scan showed gastric fold thickening suggestive of gastritis. Patient has prior admissions to [facility] with similar symptoms and was diagnosed with cyclic vomiting syndrome. Patient has low symptoms are likely in due to cyclic vomiting syndrome, peptic ulcer disease or cannabis hyperemesis syndrome. RECOMMENDATIONS: 1. Agree with IV antiemetics, Ketorolac 2. Add IV PPI 3. Pt scheduled for an upper endoscopy on 07/24/2023 to rule out peptic ulcer disease, erosive esophagitis or gastritis contributing to her symptoms ADDENDUM: 07/26/23 HOSPITAL COURSE: 42 y/o F with Pmhx of anxiety, asthma, and depression ,active marijuana use presenting to ED- with consistent nausea, vomiting, and epigastric discomfort consistent with cyclic vomiting secondary to cannabis abuse and admitted to medical floor, patient treated with antiemetics, IV fluids and analgesics subsequently seen by Dr. Chow due to persistent symptoms and underwent upper endoscopy 07/24 that showed antral gastritis, CT abdomen and pelvis showed gastric fold thickening, scattered hepatic hypodensities likely small cyst, unremarkable gallbladder, LFTs improved ,patient placed on PPI,diet gradually advance currently she is tolerating a bland diet therefore being discharged home on sublingual Zofran and recommend to continue bland diet for next few days. In regard to.Asthma (mild intermitemt) no acute exacerbation noted recommend to continue home inhalers Hypokalemia likely due to GI loss repleted and normalized . Procedures Date of Service Date of Service: 08/31/23
[2023-07-23 15:37] VITALS: BP 90/55; PULSE 72; RESP 16; TEMP 36.1; O2SAT 96
[2023-07-23 17:06] VITALS: BP 100/71
--- NOTE | 2023-07-23 18:59 | PC.NURSE ---
1108: Dr Faust aware that pt unable to tolerate any po potassium this morning. Dry heaves and vomits with smallest sip of liquid. Pt receiving IV potassium. GI consulted.
[2023-07-23 19:16] VITALS: BP 137/72; PULSE 81; RESP 18; TEMP 37; O2SAT 100
[2023-07-23] MEDS: 0.9 % Sodium Chloride Flush 3 ML SYRINGE IVFLUSH (20:35)
[2023-07-24] VITALS (13 sets, daily range): BP systolic 93–150; BP diastolic 52–91; PULSE 59–88; RESP 12–18; TEMP 36.2–37.3; O2SAT 97–100
--- NOTE | 2023-07-24 04:19 | PC.NURSE ---
pt BP was 93/63 with automate, and manual 104/78 HR 66, notified. no action need at this time. pt ambulated to BR with 1-2 assist. no vomit or nausea. will continue monitor
--- NOTE | 2023-07-24 06:27 | PC.NURSE ---
pt has been nauseated 19:00 - 00:00. provided meds by [facility] and pt can't tolerate po meds, so PO K+, not given. aware of pt's conditions. will continue monitor.
[2023-07-24] MEDS: 0.9 % Sodium Chloride Flush 3 ML SYRINGE IVFLUSH ×2 (07:41→21:06)
--- NOTE | 2023-07-24 12:41 | HO.PM.IMPN ---
Subjective Subjective Date of Service: 07/24/23 Interval History: Denies nausea, no vomiting, mild abdominal discomfort is NPO for upper endoscopy schedule by GI this afternoon denies fever, no chills, no headache, no hematemesis or melena, no other acute issues overnight. Review of Systems All other system reviewed and negative. Physical Exam Vital Signs: Vital Signs: Last Vital Signs Temp 98 F 07/24/23 12:34 Pulse 77 07/24/23 12:34 Resp 18 07/24/23 12:34 BP 122/76 07/24/23 12:34 Pulse Ox 99 07/24/23 12:34 O2 Del Method Room Air 07/24/23 12:34 BMI result Body Mass Index 21.6 Const: Other: General resting comfortably in no acute distress. Neck supple no JVD. CVS regular rate rhythm, Respiratory lungs clear to auscultation, no respiratory distress, no wheeze, no rhonchi. Gastrointestinal abdomen soft, mild epigastric discomfort with palpation, bowel sounds audible, no guarding , no rigidity. Extremities no edema. Neuro nonfocal Skin no rash Psych appropriate affect Objective Data Active Medications Acetaminophen/Butalbital/Caffeine (Butalb/Acetamin/Caff 50/325/40 Tablet) 1 tab PO Q6H PRN PRN Reason: haeadace Albuterol Sulfate (Albuterol Sulfate 90 Mcg 8 Gm Inhaler) 2 puff INHALE QID PRN PRN Reason: Shortness Of Breath Promethazine HCl 6.25 mg/ (Sodium Chloride) 50.25 mls @ 201 mls/hr IV Q6H PRN PRN Reason: Nausea and Vomiting Last Infusion: 07/23/23 20:46 Dose: Infused Documented By: ERINN Potassium Cl/Dextrose/Lact Ringer's (Kcl 20 Meq In 5 % Dex/Lact Rin) 20 meq in 1,000 mls @ 125 mls/hr IVCONT .Q8H [facility] Ketorolac Tromethamine (Ketorolac Tromethamine 15 Mg/Ml Vial) 15 mg IVPUSH Q6H PRN PRN Reason: Pain, Moderate(Pain Scale 4-6) Last Admin: 07/21/23 20:50 Dose: 15 mg Documented By: TENZIN Lidocaine (Lidocaine 4 % Patch Adh..Patch) 1 patch TRANSDERMA DAILY [facility]; Protocol Last Admin: 07/24/23 07:40 Dose: 1 patch Documented By: JAN Lorazepam (Lorazepam 2 Mg/Ml Vial) 1 mg IVPUSH ONCE PRN PRN Reason: anxiety/restlessness Last Admin: 07/23/23 10:20 Dose: 1 mg Documented By: JUICE Lorazepam (Lorazepam 2 Mg/Ml Vial) 1 mg IVPUSH Q4H PRN PRN Reason: anxiety/restlessness Last Admin: 07/23/23 15:08 Dose: 1 mg Documented By: JUICE Ondansetron HCl (Ondansetron Hcl 4 Mg/2 Ml Vial) 4 mg IVPUSH Q6H [facility] Last Admin: 07/24/23 11:06 Dose: Not Given Documented By: JAN Non-Admin Reason: Patient Refused Pantoprazole Sodium (Pantoprazole Sodium 40 Mg/10 Ml Vial) 40 mg IVPUSH BID@0630,1630 [facility] Last Admin: 07/24/23 05:56 Dose: 40 mg Documented By: ERINN Sodium Chloride (0.9 % Sodium Chloride Flush 3 Ml Syringe) 3 ml IVFLUSH QSHIFT [facility] Last Admin: 07/24/23 07:41 Dose: 3 ml Documented By: JAN Sumatriptan Succinate (Sumatriptan Succinate 50 Mg Tablet) 50 mg PO Q2H PRN PRN Reason: migraine headache Labs 07/24/23 05:55 07/24/23 05:55 Labs: Laboratory Results - last 24 hr 07/23/23 07/24/23 07/24/23 19:56 03:52 05:55 MCV 81.0 MCH 27.4 MCHC 33.9 RDW 12.5 Plt Count 157 L MPV 12.1 Immature Gran % (Auto) 0.5 H Neut % (Auto) 60.7 Lymph % (Auto) 27.6 [place] % (Auto) 8.2 Eos % (Auto) 2.5 Baso % (Auto) 0.5 Lymph # (Auto) 2.4 [place] # (Auto) 0.7 Eos # (Auto) 0.2 Baso # (Auto) 0.0 Abs Immat Gran (auto) 0.04 H Absolute Neuts (auto) 5.3 Absolute Nucleated RBC 0.000 Nucleated RBC % (auto) 0.0 Anion Gap 13 Estim Creat Clear Calc 71.8 Estimated GFR > 60 POC Glucose 78 126 H Fasting Glucose 118 H Calcium 8.6 Total Bilirubin 0.7 AST 16 ALT 19 Alkaline Phosphatase 38 L Total Protein 5.7 L Albumin 3.3 L Assessment and Plan (1) Cyclical vomiting: Status: Acute Plan 42 y/o F with Pmhx of anxiety, asthma, and depression ,active marijuana use presenting to ED- with consistent nausea, vomiting, and epigastric discomfort consistent with cyclic vomiting secondary to cannabis abuse 1. Cyclic vomiting secondary to cannabis abuse/PUD NPO for upper endoscopy today, no nausea, no vomiting since no by mouth intake, will continue antiemetics, IV fluids and IV ppi follow electrolytes, no fevers, normal CBC 2. Transaminitis Transaminitis likely related to volume/flow. Normalized with volume repletion -follow LFTs 3.Asthma (mild intermitemt) no acute exacerbation continue home inhalers 4. Hypokalemia potassium 2.6 likely due to GI loss will aggressively replace and follow labs this afternoon/am Patient will require ongoing hospitalization given her slow response to therapies including IV volume and antiemetics. Transaminitis slowly resolving. Patient is a high risk for outpatient failure at this time given inability to take p.o. Quality Stroke Does the patient have a stroke diagnosis?: No VTE Prior VTE?: No VTE Risk Level:: Medical - moderate - high VTE Device Contraindication: N/A - Device Ordered VTE Drug Contraindication: N/A - Med Ordered
--- NOTE | 2023-07-24 14:31 | HO.ANESPROP2 ---
[facility] Active Problems Active Problems: All Active Problems (Updated 07/21/23 @ 14:17 by Toni Faust DO) Marijuana abuse (Acute) Urinary tract infection (Acute) Cyclical vomiting (Acute) Depressed (Acute) Asthma (Acute) Anxiety (Acute) Past Medical History Medical History (Updated 07/21/23 @ 14:17 by Toni Faust DO) Marijuana abuse Anxiety Depressed Asthma Family History Family history of problems with anesthesia: No Surgical History History of Problems with Anesthesia: No Social History Social History Unable to assess alcohol history related to: Unknown Alcohol intake: current Alcohol intake frequency: holidays/special occasions only Comment: mom at the bedside Patient Tobacco Use Status: Never used Tobacco Smoked in Last 30 Days: Yes Use of substances other than those prescribed or required for medical reasons: Yes Substance Use Type: Marijuana Last Used Substance: Days (ago) Currently Displaying Signs/Symptoms of Drug Intoxication Withdrawal: No Advance Directives: No Advance Directives Information Provided: No Patient : No service: No Meds Allergies Allergy/AdvReac Type Severity Reaction Status Date / Time heparin [HEPARIN] Allergy Severe HIT Verified 07/19/23 13:24 morphine [MORPHINE] Allergy Unknown N/A Verified 07/19/23 13:24 Active Medications: Current Medications Acetaminophen/Butalbital/Caffeine (Butalb/Acetamin/Caff 50/325/40 Tablet) 1 tab PO Q6H PRN PRN Reason: haeadace Albuterol Sulfate (Albuterol Sulfate 90 Mcg 8 Gm Inhaler) 2 puff INHALE QID PRN PRN Reason: Shortness Of Breath Promethazine HCl 6.25 mg/ (Sodium Chloride) 50.25 mls @ 201 mls/hr IV Q6H PRN PRN Reason: Nausea and Vomiting Last Infusion: 07/23/23 20:46 Dose: Infused Potassium Cl/Dextrose/Lact Ringer's (Kcl 20 Meq In 5 % Dex/Lact Rin) 20 meq in 1,000 mls @ 125 mls/hr IVCONT .Q8H DARRIAN Last Admin: 07/24/23 13:36 Dose: 125 mls/hr Ketorolac Tromethamine (Ketorolac Tromethamine 15 Mg/Ml Vial) 15 mg IVPUSH Q6H PRN PRN Reason: Pain, Moderate(Pain Scale 4-6) Last Admin: 07/21/23 20:50 Dose: 15 mg Lidocaine (Lidocaine 4 % Patch Adh..Patch) 1 patch TRANSDERMA DAILY [facility]; Protocol Last Admin: 07/24/23 07:40 Dose: 1 patch Lorazepam (Lorazepam 2 Mg/Ml Vial) 1 mg IVPUSH ONCE PRN PRN Reason: anxiety/restlessness Last Admin: 07/23/23 10:20 Dose: 1 mg Lorazepam (Lorazepam 2 Mg/Ml Vial) 1 mg IVPUSH Q4H PRN PRN Reason: anxiety/restlessness Last Admin: 07/23/23 15:08 Dose: 1 mg Ondansetron HCl (Ondansetron Hcl 4 Mg/2 Ml Vial) 4 mg IVPUSH Q6H [facility] Last Admin: 07/24/23 11:06 Dose: Not Given Pantoprazole Sodium (Pantoprazole Sodium 40 Mg/10 Ml Vial) 40 mg IVPUSH BID@0630,1630 [facility] Last Admin: 07/24/23 05:56 Dose: 40 mg Sodium Chloride (0.9 % Sodium Chloride Flush 3 Ml Syringe) 3 ml IVFLUSH QSHIFT [facility] Last Admin: 07/24/23 07:41 Dose: 3 ml Sumatriptan Succinate (Sumatriptan Succinate 50 Mg Tablet) 50 mg PO Q2H PRN PRN Reason: migraine headache Home Medications Medication Instructions Recorded Confirmed Last Taken Type albuterol sulfate 90 mcg/actuation 2 puff inhalation QID PRN 07/20/23 07/20/23 Unknown History aerosol inhaler (Ventolin HFA) Shortness Of Breath Exam Height,Weight and Vital Signs: Height 4 ft 11 in Weight 48.534 kg Last Vital Signs Temp 98 F 07/24/23 12:34 Pulse 77 07/24/23 12:34 Resp 18 07/24/23 12:34 BP 122/76 07/24/23 12:34 Pulse Ox 99 07/24/23 12:34 O2 Del Method Room Air 07/24/23 12:34 Pertinent Lab Results Pertinent Lab Results: Laboratory Tests 07/19/23 07/19/23 07/22/23 14:01 22:43 05:38 WBC 11.4 H 7.6 RBC 4.31 4.46 Hgb 12.1 12.5 Hct 35.4 L 35.4 L MCV 82.1 79.4 L MCH 28.1 28.0 MCHC 34.2 35.3 H RDW 12.9 12.4 Plt Count 164 136 L MPV 11.0 Not Reportable Immature Gran % (Auto) 0.3 0.3 Neut % (Auto) 84.2 H 62.2 Lymph % (Auto) 9.6 L 27.8 [place] % (Auto) 5.6 7.7 Eos % (Auto) 0.1 1.7 Baso % (Auto) 0.2 0.3 Lymph # (Auto) 1.1 L 2.1 [place]aney # (Auto) 0.6 0.6 Eos # (Auto) 0.0 0.1 Baso # (Auto) 0.0 0.0 Abs Immat Gran (auto) 0.04 H 0.02 Absolute Neuts (auto) 9.6 H 4.7 Absolute Nucleated RBC 0.000 0.000 Nucleated RBC % (auto) 0.0 0.0 Smear Tech's Comments VERIFIED Sodium 142 137 Potassium 3.3 2.7 L Chloride 106 97 Carbon Dioxide 22 26 Anion Gap 17 17 BUN 11 4 L Creatinine 0.72 0.70 Estim Creat Clear Calc 70.8 72.8 Estimated GFR > 60 > 60 POC Glucose Random Glucose 84 Fasting Glucose 51 L* Calcium 9.0 8.6 Total Bilirubin 0.9 1.0 AST 34 H 31 ALT 34 H 31 Alkaline Phosphatase 48 46 Total Protein 7.2 6.9 Albumin 4.2 3.8 Beta HCG, Quant < 2 Urine Color Yellow Urine Appearance Cloudy Urine pH 5.5 Ur Specific [place] 1.025 Urine Protein 30 (1+) H Urine Glucose (UA) Negative Urine Ketones >=160 Urine Blood Negative Urine Nitrite Negative Ur Leukocyte Esterase Small (1+) H Urine RBC 0-2 Urine WBC 21-50 H Ur Squamous Epith Cells 6-10 Urine Bacteria 1+ Hyaline Casts 0-2 Urine Opiates Screen Not Detected Urine Fentanyl Screen Not Detected Ur Barbiturates Screen Not Detected Ur Phencyclidine Scrn Not Detected Ur Amphetamines Screen Not Detected U Benzodiazepines Scrn Not Detected Urine Cocaine Screen Not Detected U Marijuana (THC) Screen POSITIVE H Influenza Type A (PCR) NEGATIVE Influenza Type B (PCR) NEGATIVE RSV RNA Qual (PCR) NEGATIVE SARS-CoV-2 RNA (RT-PCR) NEGATIVE 0107/22/23 07/22/23 06:54 07:09 07:28 WBC RBC Hgb Hct MCV MCH MCHC RDW Plt Count MPV Immature Gran % (Auto) Neut % (Auto) Lymph % (Auto) [place] % (Auto) Eos % (Auto) Baso % (Auto) Lymph # (Auto) [place] # (Auto) Eos # (Auto) Baso # (Auto) Abs Immat Gran (auto) Absolute Neuts (auto) Absolute Nucleated RBC Nucleated RBC % (auto) Smear Tech's Comments Sodium Potassium Chloride Carbon Dioxide Anion Gap BUN Creatinine Estim Creat Clear Calc Estimated GFR POC Glucose 59 L* 58 L* 58 L* Random Glucose Fasting Glucose Calcium Total Bilirubin AST ALT Alkaline Phosphatase Total Protein Albumin Beta HCG, Quant Urine Color Urine Appearance Urine pH Ur Specific [place] Urine Protein Urine Glucose (UA) Urine Ketones Urine Blood Urine Nitrite Ur Leukocyte Esterase Urine RBC Urine WBC Ur Squamous Epith Cells Urine Bacteria Hyaline Casts Urine Opiates Screen Urine Fentanyl Screen Ur Barbiturates Screen Ur Phencyclidine Scrn Ur Amphetamines Screen U Benzodiazepines Scrn Urine Cocaine Screen U Marijuana (THC) Screen Influenza Type A (PCR) Influenza Type B (PCR) RSV RNA Qual (PCR) SARS-CoV-2 RNA (RT-PCR) 07/22/23 07/22/23 07/22/23 08:12 09:46 10:50 WBC RBC Hgb Hct MCV MCH MCHC RDW Plt Count MPV Immature Gran % (Auto) Neut % (Auto) Lymph % (Auto) [place] % (Auto) Eos % (Auto) Baso % (Auto) Lymph # (Auto) [place] # (Auto) Eos # (Auto) Baso # (Auto) Abs Immat Gran (auto) Absolute Neuts (auto) Absolute Nucleated RBC Nucleated RBC % (auto) Smear Tech's Comments Sodium Potassium Chloride Carbon Dioxide Anion Gap BUN Creatinine Estim Creat Clear Calc Estimated GFR POC Glucose 63 92 67 Random Glucose Fasting Glucose Calcium Total Bilirubin AST ALT Alkaline Phosphatase Total Protein Albumin Beta HCG, Quant Urine Color Urine Appearance Urine pH Ur Specific [place] Urine Protein Urine Glucose (UA) Urine Ketones Urine Blood Urine Nitrite Ur Leukocyte Esterase Urine RBC Urine WBC Ur Squamous Epith Cells Urine Bacteria Hyaline Casts Urine Opiates Screen Urine Fentanyl Screen Ur Barbiturates Screen Ur Phencyclidine Scrn Ur Amphetamines Screen U Benzodiazepines Scrn Urine Cocaine Screen U Marijuana (THC) Screen Influenza Type A (PCR) Influenza Type B (PCR) RSV RNA Qual (PCR) SARS-CoV-2 RNA (RT-PCR) 07/22/23 07/23/23 07/23/23 12:06 04:34 05:24 WBC 6.1 RBC 4.59 Hgb 12.8 Hct 36.5 L MCV 79.5 L MCH 27.9 MCHC 35.1 H RDW 12.3 Plt Count 153 L MPV 12.2 Immature Gran % (Auto) 0.3 Neut % (Auto) 49.6 Lymph % (Auto) 36.9 [place] % (Auto) 10.1 Eos % (Auto) 2.6 Baso % (Auto) 0.5 Lymph # (Auto) 2.2 [place] # (Auto) 0.6 Eos # (Auto) 0.2 Baso # (Auto) 0.0 Abs Immat Gran (auto) 0.02 Absolute Neuts (auto) 3.0 Absolute Nucleated RBC 0.000 Nucleated RBC % (auto) 0.0 Smear Tech's Comments Sodium 139 Potassium 2.3 L* Chloride 99 Carbon Dioxide 30 H Anion Gap 12 BUN 3 L Creatinine 0.74 Estim Creat Clear Calc 68.9 Estimated GFR > 60 POC Glucose 71 144 H Random Glucose Fasting Glucose 127 H Calcium 8.5 Total Bilirubin 0.8 AST 18 ALT 22 Alkaline Phosphatase 40 Total Protein 5.9 L Albumin 3.5 Beta HCG, Quant Urine Color Urine Appearance Urine pH Ur Specific [place] Urine Protein Urine Glucose (UA) Urine Ketones Urine Blood Urine Nitrite Ur Leukocyte Esterase Urine RBC Urine WBC Ur Squamous Epith Cells Urine Bacteria Hyaline Casts Urine Opiates Screen Urine Fentanyl Screen Ur Barbiturates Screen Ur Phencyclidine Scrn Ur Amphetamines Screen U Benzodiazepines Scrn Urine Cocaine Screen U Marijuana (THC) Screen Influenza Type A (PCR) Influenza Type B (PCR) RSV RNA Qual (PCR) SARS-CoV-2 RNA (RT-PCR) 07/23/23 07/23/23 07/24/23 12:04 19:56 03:52 WBC RBC Hgb Hct MCV MCH MCHC RDW Plt Count MPV Immature Gran % (Auto) Neut % (Auto) Lymph % (Auto) [place] % (Auto) Eos % (Auto) Baso % (Auto) Lymph # (Auto) [place] # (Auto) Eos # (Auto) Baso # (Auto) Abs Immat Gran (auto) Absolute Neuts (auto) Absolute Nucleated RBC Nucleated RBC % (auto) Smear Tech's Comments Sodium Potassium Chloride Carbon Dioxide Anion Gap BUN Creatinine Estim Creat Clear Calc Estimated GFR POC Glucose 98 78 126 H Random Glucose Fasting Glucose Calcium Total Bilirubin AST ALT Alkaline Phosphatase Total Protein Albumin Beta HCG, Quant Urine Color Urine Appearance Urine pH Ur Specific [place] Urine Protein Urine Glucose (UA) Urine Ketones Urine Blood Urine Nitrite Ur Leukocyte Esterase Urine RBC Urine WBC Ur Squamous Epith Cells Urine Bacteria Hyaline Casts Urine Opiates Screen Urine Fentanyl Screen Ur Barbiturates Screen Ur Phencyclidine Scrn Ur Amphetamines Screen U Benzodiazepines Scrn Urine Cocaine Screen U Marijuana (THC) Screen Influenza Type A (PCR) Influenza Type B (PCR) RSV RNA Qual (PCR) SARS-CoV-2 RNA (RT-PCR) 07/24/23 07/24/23 05:55 13:43 WBC 8.7 RBC 4.52 Hgb 12.4 Hct 36.6 L MCV 81.0 MCH 27.4 MCHC 33.9 RDW 12.5 Plt Count 157 L MPV 12.1 Immature Gran % (Auto) 0.5 H Neut % (Auto) 60.7 Lymph % (Auto) 27.6 [place] % (Auto) 8.2 Eos % (Auto) 2.5 Baso % (Auto) 0.5 Lymph # (Auto) 2.4 [place] # (Auto) 0.7 Eos # (Auto) 0.2 Baso # (Auto) 0.0 Abs Immat Gran (auto) 0.04 H Absolute Neuts (auto) 5.3 Absolute Nucleated RBC 0.000 Nucleated RBC % (auto) 0.0 Smear Tech's Comments Sodium 138 138 Potassium 2.6 L 3.3 D Chloride 102 101 Carbon Dioxide 26 26 Anion Gap 13 14 BUN 3 L < 3 L Creatinine 0.71 0.69 Estim Creat Clear Calc 71.8 73.9 Estimated GFR > 60 > 60 POC Glucose Random Glucose 79 Fasting Glucose 118 H Calcium 8.6 8.9 Total Bilirubin 0.7 AST 16 ALT 19 Alkaline Phosphatase 38 L Total Protein 5.7 L Albumin 3.3 L Beta HCG, Quant Urine Color Urine Appearance Urine pH Ur Specific [place] Urine Protein Urine Glucose (UA) Urine Ketones Urine Blood Urine Nitrite Ur Leukocyte Esterase Urine RBC Urine WBC Ur Squamous Epith Cells Urine Bacteria Hyaline Casts Urine Opiates Screen Urine Fentanyl Screen Ur Barbiturates Screen Ur Phencyclidine Scrn Ur Amphetamines Screen U Benzodiazepines Scrn Urine Cocaine Screen U Marijuana (THC) Screen Influenza Type A (PCR) Influenza Type B (PCR) RSV RNA Qual (PCR) SARS-CoV-2 RNA (RT-PCR) Airway Mallampati Class: II TM Dist: >3cm Neck ROM: Full Heart: rrr Lungs: cta Assessment and Plan Assessment Anesthesia Assessment: Anesthesia Plan Discussed and Chart Reviewed Final Anesthetic Review Family History of Problems with Anesthesia: No History of Problems with Anesthesia: No NPO: Yes ASA Class: II Final Preanesthetic Review: No Changes in Pt Med Stat, Meds/Allgs Chart Reviewed and Consent Obtained/Reviewed Patient Risk: Intermediate Procedure Risk: Intermediate Anesthetic Plan Anesthetic Plan: MAC: Disposition: Standard PACU
--- NOTE | 2023-07-24 15:06 | MHC.SHP ---
Pre-Procedural Eval Section A Date of Service: 07/24/23 The patient is an INPATIENT: Yes Changes since office visit: Yes New Medical Problems, Yes Changes in Medication and Yes Patient answered all questions; No Cold of Flu in the past 2 weeks The History & Physical has been completed within 30 days and I have reviewed it.: Yes Section B Chief Complaint: Nausea Vomiting Persistent w/Marijuana Use Allergies: Allergies Allergy/AdvReac Type Severity Reaction Status Date / Time heparin [HEPARIN] Allergy Severe HIT Verified 07/19/23 13:24 morphine [MORPHINE] Allergy Unknown N/A Verified 07/19/23 13:24 Plan I have reviewed the history and physical and performed a pertinent physical examination on my patient. No changes have occurred unless specified. Time Spent With Patient Time: Total time managing care of this patient today ____ minutes.
--- NOTE | 2023-07-24 15:25 | W.PM.OPN ---
Operative Note Operative Note Date of Service: 07/24/23 Narrative: FLEXIBLE TRANSORAL UPPER GASTROINTESTINAL ENDOSCOPY WITH BIOPSIES Pre-op diagnosis: Nausea and vomiting, abnormal CT scan of the stomach Post-op diagnosis: gastritis Endoscopist:? Farida Chow MD Anesthesia:?MAC Consent: Indications for the procedure and potential complications of bleeding, perforation, reaction to medications and missed diagnosis were discussed with the patient with with the help of an [facility] [place] russian language instructor, Bill, and informed consent was obtained. Instrument: Olympus GIF H 190 mid size upper endoscope Monitoring: Vital signs and clinical assessment, continuous EKG monitoring, Pulse oximetry, Carbon Dioxide monitoring and blood pressure monitoring were done throughout the procedure. Procedure: The patient was placed in the left lateral decubitis position and pre-procedure medications were administered and a bite block was placed. The endoscope was inserted into the mouth and advanced under direct vision to the third part of duodenum. A careful inspection was made as the upper endoscope was withdrawn including a retroflexed examination of the proximal stomach; Findings and interventions are described below. Findings: Larynx: Normal Esophagus: GE junction at 36 cms. No esophagitis or Randall's. Stomach: Moderate gastric antral erythema. Biopsies were obtained to check for Helicobacter pylori. Grade 1 flap valve on retroflexed examination of the cardia. Duodenum: Normal bulb and descending duodenum. Biopsies were obtained from 3rd part of the duodenum to check for celiac sprue Intervention: Biopsies as noted above Impression and Post Procedure Diagnosis: Endoscopy Findings: STOMACH: Moderate antral gastritis DUODENUM: Normal - biopsied to check for celiac sprue Plan: Start on a clear liquid diet and advance diet as tolerated. Switch to PO Omeprazole 20 mg daily once pt is tolerating PO diet. I will contact the patient with pathology results Patient to schedule a FU appointment in the GI Clinic with Farida Chow M.D. Above findings were reviewed with the patient with the help of an [facility] [place] russian language instructor, Bill, BIOPSIES SHOWED: A. Small bowel, biopsy: Duodenal mucosa with preserved villi and increased intraepithelial lymphocytes (see comment). B. Gastric antrum, biopsy: Gastric antral mucosa with minimal chronic inactive gastritis; negative for H pylori, intestinal metaplasia and dysplasia. Comment: (A): The villus tip-heavy distribution which would be suggestive of celiac-sprue is not seen. However, the long differential for this non-specific finding includes celiac-sprue and serologic studies may be helpful.
--- NOTE | 2023-07-24 17:14 | PC.NURSE ---
Pt states when she came back from procedure this afternoon she noticed a bump on her right upper lip. Bump is raised, flesh colored, skin intact, and does not appear fluid filled. Pt denies pain at this time. Ice pack given. No swelling in mouth, tongue, or throat upon further assessment, pt denies SOB, vital signs stable. MD Lees made aware.
[2023-07-24] MEDS: Ketorolac Tromethamine 15 MG/ML VIAL IVPUSH (21:05)
[2023-07-24] MEDS: LORazepam 2 MG/ML VIAL 1 MG IVPUSH (23:04)
[2023-07-25 03:55] VITALS: BP 113/77; PULSE 76; RESP 16; TEMP 36.9; O2SAT 99
--- NOTE | 2023-07-25 13:23 | HO.POSTANES ---
Post Anesthesia Evaluation Post Anesthesia Evaluation Date of Service: 07/24/23 Vital Signs: Vital Signs Temp Pulse Resp BP Pulse Ox O2 Del Method 07/25/23 03:55 98.4 F 76 16 113/77 99 Room Air Anesthesia: TIVA Mental Status: Awake Pain Control: Satisfactory Nausea/Vomiting: None Hydration: Adequate Anesthesia-Related Issues: No Anes. Related Issues
[2023-07-25 16:00] VITALS: BP 133/75; PULSE 70; RESP 16; TEMP 36.6; O2SAT 100
--- NOTE | 2023-07-25 16:10 | HO.PM.IMPN ---
Subjective Subjective Date of Service: 07/25/23 Interval History: Complaining of persistent nausea and vomiting soon after eating, complaining of abdominal pain, no fevers, no chills, patient mostly in bed. Review of Systems All other system reviewed and negative Physical Exam Vital Signs: Vital Signs: Last Vital Signs Temp 98.4 F 07/25/23 03:55 Pulse 76 07/25/23 03:55 Resp 16 07/25/23 03:55 BP 113/77 07/25/23 03:55 Pulse Ox 99 07/25/23 03:55 O2 Del Method Room Air 07/25/23 03:55 O2 Flow Rate 8 07/24/23 15:29 BMI result Body Mass Index 21.6 Const: Other: General awake alert x3, resting comfortably in no acute distress. Neck supple no JVD. CVS regular rate rhythm, Respiratory lungs clear to auscultation, no respiratory distress, no wheeze, no rhonchi. Gastrointestinal abdomen soft, mild epigastric discomfort with palpation, bowel sounds audible, no guarding , no rigidity. Extremities no edema. Neuro nonfocal Skin no rash Psych appropriate affect Objective Data Active Medications Acetaminophen/Butalbital/Caffeine (Butalb/Acetamin/Caff 50/325/40 Tablet) 1 tab PO Q6H PRN PRN Reason: haeadace Albuterol Sulfate (Albuterol Sulfate 90 Mcg 8 Gm Inhaler) 2 puff INHALE QID PRN PRN Reason: Shortness Of Breath Promethazine HCl 6.25 mg/ (Sodium Chloride) 50.25 mls @ 201 mls/hr IV Q6H PRN PRN Reason: Nausea and Vomiting Last Infusion: 07/25/23 15:24 Dose: Infused Documented By: MATTHEW Potassium Cl/Dextrose/Lact Ringer's (Kcl 20 Meq In 5 % Dex/Lact Rin) 20 meq in 1,000 mls @ 125 mls/hr IVCONT .Q8H DARRIAN Last Infusion: 07/25/23 11:15 Dose: 125 mls/hr Documented By: MATTHEW Ketorolac Tromethamine (Ketorolac Tromethamine 15 Mg/Ml Vial) 15 mg IVPUSH Q6H PRN PRN Reason: Pain, Moderate(Pain Scale 4-6) Last Admin: 07/24/23 21:05 Dose: 15 mg Documented By: ERINN Lidocaine (Lidocaine 4 % Patch Adh..Patch) 1 patch TRANSDERMA DAILY [facility]; Protocol Last Admin: 07/25/23 08:59 Dose: 1 patch Documented By: MATTHEW Lorazepam (Lorazepam 2 Mg/Ml Vial) 1 mg IVPUSH ONCE PRN PRN Reason: anxiety/restlessness Last Admin: 07/24/23 23:04 Dose: 1 mg Documented By: ERINN Lorazepam (Lorazepam 2 Mg/Ml Vial) 1 mg IVPUSH Q4H PRN PRN Reason: anxiety/restlessness Last Admin: 07/23/23 15:08 Dose: 1 mg Documented By: JUICE Ondansetron HCl (Ondansetron Hcl 4 Mg/2 Ml Vial) 4 mg IVPUSH Q6H [facility] Last Admin: 07/25/23 09:01 Dose: 4 mg Documented By: MATTHEW Pantoprazole Sodium (Pantoprazole Sodium 40 Mg/10 Ml Vial) 40 mg IVPUSH BID@0630,1630 [facility] Last Admin: 07/25/23 05:51 Dose: 40 mg Documented By: ERINN Sodium Chloride (0.9 % Sodium Chloride Flush 3 Ml Syringe) 3 ml IVFLUSH QSHIFT [facility] Last Admin: 07/25/23 08:52 Dose: Not Given Documented By: MATTHEW Non-Admin Reason: IV Running Sumatriptan Succinate (Sumatriptan Succinate 50 Mg Tablet) 50 mg PO Q2H PRN PRN Reason: migraine headache Labs 07/24/23 05:55 07/25/23 10:12 Labs: Laboratory Results - last 24 hr 07/25/23 06:01 Hold Purple Top SEE NOTE Anion Gap 10 L Estim Creat Clear Calc 75.0 Estimated GFR > 60 Random Glucose 107 Calcium 8.8 Assessment and Plan (1) Cyclical vomiting: Status: Acute Plan 42 y/o F with Pmhx of anxiety, asthma, and depression ,active marijuana use presenting to ED- with consistent nausea, vomiting, and epigastric discomfort consistent with cyclic vomiting secondary to cannabis abuse 1. Cyclic vomiting secondary to cannabis abuse/PUD Persistent nausea and vomiting better than yesterday, upper endoscopy 07/[address] Chow showed antral gastritis, CT abdomen and pelvis showed gastric fold thickening, scattered hepatic hypodensities likely small cyst, unremarkable gallbladder, LFTs trending down Placed on bland diet, continue IV fluids and IV PPI since not tolerating by mouth, will change to as needed IV Zofran, continue IV fluids 2. Transaminitis Transaminitis likely related to volume/flow. Normalized with volume repletion -follow LFTs 3.Asthma (mild intermitemt) no acute exacerbation continue home inhalers 4. Hypokalemia will repeat and follow labs, likely due to GI loss Patient will require ongoing hospitalization given her slow response to therapies including IV volume and antiemetics. Patient is a high risk for outpatient failure at this time given inability to take p.o. Quality Stroke Does the patient have a stroke diagnosis?: No VTE Prior VTE?: No VTE Risk Level:: Medical - moderate - high VTE Device Contraindication: N/A - Device Ordered VTE Drug Contraindication: N/A - Med Ordered
[2023-07-25 20:03] VITALS: BP 126/84; PULSE 75; RESP 20; TEMP 36.8; O2SAT 100
[2023-07-26 04:00] VITALS: BP 102/63; PULSE 88; RESP 16; TEMP 36.2; O2SAT 99
[2023-07-26 07:54] VITALS: BP 110/67; PULSE 84; RESP 16; TEMP 36.5; O2SAT 98
--- NOTE | 2023-07-26 13:42 | PM.DS ---
DS: Providers Provider Date of Service: 07/27/23 Date of admission: 07/21/23 12:30 Primary care physician: None Physician Consults: 07/23/23 12:06 Consult to Gastroenterology Routine Consulting Provider: Farida Chow Reason for consultation: Cyclic vomiting Has provider been notified: No DS: Diagnosis Discharge Diagnosis (1) Cyclical vomiting: Status: Acute DS: Summary Hospital Course Hospital Course: History of presenting illness: Date of Service: 07/20/23 Attending physician on admission: Caden Dougherty Chief Complaint: persistent nausea/vomiting 42 y/o F with Pmhx of anxiety, asthma, and depression ,active marijuana use presenting to ED- with consistent nausea, vomiting, and epigastric discomfort on 07/19/23 -has persistent nausea/vomiting for 4 days and afterwards startinf feeling epigastric discomfort ,unable to take po so decided to come to hospital . denies eating outside food or sick contact or antibiotics use .no fever or chills .in ED:received reglan ,zofran, phergan -did not improve ,so requested admission for persistent nausea/vomiting. Denies any new complaint of chest pain or shortness of breath or fever or chills or cough or headaches or weakness or numbness. labs imaging reviewed : drug screen positive for marijuana cbc: wbc 11.4 cmp -seems fine except -mild lft's elevated (which also seems ch on/off). CT/CT abdomen pelvis w IV con IMPRESSION: 1. Gastric fold thickening, correlate clinically for gastritis. 2. Scattered hepatic hypodensities likely small cysts. Hospital course: 42 y/o F with Pmhx of anxiety, asthma, and depression ,active marijuana use presenting to ED- with consistent nausea, vomiting, and epigastric discomfort consistent with cyclic vomiting secondary to cannabis abuse and admitted to medical floor, patient treated with antiemetics, IV fluids and analgesics subsequently seen by Dr. Chow due to persistent symptoms and underwent upper endoscopy 07/24 that showed antral gastritis, CT abdomen and pelvis showed gastric fold thickening, scattered hepatic hypodensities likely small cyst, unremarkable gallbladder, LFTs improved ,patient placed on PPI,diet gradually advance currently she is tolerating a bland diet therefore being discharged home on sublingual Zofran and recommend to continue bland diet for next few days. In regard to.Asthma (mild intermitemt) no acute exacerbation noted recommend to continue home inhalers Hypokalemia likely due to GI loss repleted and normalized . Time Attestation Discharge coordination time: Greater than 30 minutes Quality: Safe Use of Opioids Does Pt have an Active Cancer Diagnosis on the Problem List?: No Quality: Stroke Does the patient have a stroke diagnosis?: No Physical Exam Vital Signs: Vital Signs: Last Vital Signs Temp 97.7 F 07/26/23 07:54 Pulse 84 07/26/23 07:54 Resp 16 07/26/23 07:54 BP 110/67 07/26/23 07:54 Pulse Ox 98 07/26/23 07:54 O2 Del Method Room Air 07/26/23 07:54 O2 Flow Rate 8 07/24/23 15:29 BMI result Body Mass Index 21.6 Const: Other: General awake alert x3, resting comfortably in no acute distress. Neck supple no JVD. CVS regular rate rhythm, Respiratory lungs clear to auscultation, no respiratory distress, no wheeze, no rhonchi. Gastrointestinal abdomen soft, nontender, bowel sounds audible, no guarding , no rigidity. Extremities no edema. Neuro non focal Skin no rash Psych appropriate affect DS: Data Data Completed and Pending Pending studies at discharge: Pending at discharge 07/24/23 15:29 Surgical [PTH] Routine Labs on day of discharge: Laboratory Results - last 24 hr 07/26/23 07/26/23 05:54 12:51 Sodium 136 Potassium 3.1 L 3.4 Chloride 105 Carbon Dioxide 25 Anion Gap 9 L BUN < 3 L Creatinine 0.68 Estim Creat Clear Calc 75.0 Estimated GFR > 60 Random Glucose 99 Calcium 8.9 Total Bilirubin 0.7 Direct Bilirubin 0.2 AST 14 ALT 15 Alkaline Phosphatase 40 Total Protein 5.9 L Albumin 3.4 L Discharge Plan Discharge Anticipated Discharge Date/Time: 07/26/23 13:38 Patient Disposition: Home, Self-Care Discharge Diagnosis: Cyclic vomiting Gastritis Hypokalemia Referrals: Physician,None [Physician] - 1 Week Discharge Medications: New omeprazole 20 mg Capsule,Delayed Release(Dr/Ec) 20 mg PO DAILY@0630 Qty: 30 0RF ondansetron 4 mg tablet,disintegrating 4 mg PO Q8H PRN (Reason: nausea and vomiting) 4 Days Qty: 14 0RF Continued sumatriptan succinate [Imitrex] 50 mg tablet 50 mg PO Q2H PRN (Reason: migraine headache) Qty: 10 0RF Rx Instructions: do not exceed 2 doses per 24 hrs rkfpphczxx-ysqelpihbyseh-rusb 50-325-40 mg tablet 1 tab PO Q6H PRN (Reason: haeadace) Qty: 20 0RF albuterol sulfate [Ventolin HFA] 90 mcg/actuation HFA aerosol inhaler 2 puff inhalation QID PRN (Reason: Shortness Of Breath) Discharge Orders: Discharge Order (Routine); Ordered 07/26/23 Ordered By: Adrienne Lees Diet: Advance to usual diet Activity on Discharge: As tolerated Stand Alone Forms: Patient Portal Discharge page Care Plan Goals: Cyclic vomiting and gastritis Recommend to take bland diet crackers, toast, Tea/ nahid shyann, take antiemetics prior to eating Strongly recommend to abstain from marijuana Health Concerns: Gastritis take Prilosec 20 mg 1 tablet daily In regard to nausea and vomiting take sublingual Zofran Plan of Treatment: Outpatient follow-up with primary care physician call for appointment, outpatient follow-up appointment scheduled in GI clinic with Dr. Chow Assessment: As above Discharge Date/Time: 07/26/23 15:02
--- NOTE | 2023-07-26 14:07 | MHC.CM.PN ---
order for home, self-care. CM acknowledge.
== END 2023-07-26 15:02 | disposition home or self-care (01) | DRG 249 ==
LOC: HO.ED 07-20 06:29 → HO.EDOVER 07-20 10:17 → HO.S3 07-20 14:12
PROVIDERS: Hospitalist; Internal Medicine Gastroenterology; Registered Nurse Emergency; Admitting Provider Internal Medicine; Emergency Provider Emergency Medicine Emergency Medical Services; PCP Internal Medicine; Visit Provider Hospitalist
PROC: 0DJ08ZZ Inspection of Upper Intestinal Tract, Via Natural or Artificial Opening Endoscopic (ICD-10-PCS; CPT 43235; principal; 2023-07-24 14:40)
DX: R11.2 Nausea with vomiting, unspecified (principal); E87.6 Hypokalemia; F41.9 Anxiety disorder, unspecified; F32.A Depression, unspecified; F12.10 Cannabis abuse, uncomplicated; J45.20 Mild intermittent asthma, uncomplicated; K29.70 Gastritis, unspecified, without bleeding; Z20.822 Contact with and (suspected) exposure to COVID-19; Z79.899 Other long term (current) drug therapy
CPT/HCPCS: 0241U; 36415; 70450; 74177; 80048; 80053; 80076; 80307; 81001; 82947; 84132; 84702; 85025; 87086; 88305; 88342; 99285; C9113; J0696; J1790; J1885; J2060; J2405; J2550; J2704; J2765; J3480; J7120; Q9967

== ENCOUNTER → 2023-07-20 10:09 | Outpatient (BNV) | payer MEDICAID, SELFPAY | PROVIDERS: Admitting Provider Internal Medicine; Emergency Provider Emergency Medicine Emergency Medical Services; Visit Provider Internal Medicine | DX: R11.15 Cyclical vomiting syndrome unrelated to migraine (principal) | CPT/HCPCS: 99222; 99232; 99233; 99239 ==

== ENCOUNTER → 2023-07-21 12:30 | Outpatient (BNV) | payer MEDICAID, SELFPAY | PROVIDERS: Admitting Provider Internal Medicine; Emergency Provider Emergency Medicine Emergency Medical Services; PCP Internal Medicine; Visit Provider Internal Medicine Gastroenterology | DX: Z00.00 Encounter for general adult medical examination without abnormal findings (principal) | CPT/HCPCS: 99222; 99499 ==

== ENCOUNTER 2023-09-11 15:37 | Outpatient (REF) | payer MEDICAID, SELFPAY ==
--- NOTE | ~2023-09-11 | MM_ITS ---
EXAMINATION: MM SCREENING DIGITAL BREAST TOMOSYNTHESIS, BILATERAL CLINICAL INFORMATION: Screening. Asymptomatic. COMPARISON: Mammography: This study is compared with prior exams dating back to 2019. There are no interval examinations. TECHNIQUE: Digital breast tomosynthesis is performed in both the craniocaudal and mediolateral oblique views along with computer-aided detection (CAD). Synthesized 2D images are generated from the tomosynthesis. FINDINGS: The breasts are extremely dense, which lowers the sensitivity of mammography (ACR BI-RADS breast composition Category d). The deep third of the upper outer quadrant of the left breast, there are grouped calcifications which warrant additional mammographic imaging with magnification. In the right breast, there are no significant masses, abnormal calcifications, or other abnormalities. MM/MM tomosynthesis screening BI IMPRESSION: Left breast calcifications warrant additional mammographic imaging with magnification. No mammographic signs of malignancy right breast. ASSESSMENT: BI-RADS BI-RADS 0 - Incomplete: Needs additional Imaging. RECOMMENDATION: Additional views of the left breast. Radiology department staff will contact the patient for additional imaging. Additional Imaging required This examination should not preclude the clinical evaluation of a suspicious palpable abnormality. This patient's information was entered into a reminder system with a target due date for their next mammogram.
== END 2023-09-11 15:38 | disposition home or self-care (01) ==
LOC: HO.MAMMO 15:37
PROVIDERS: PCP Internal Medicine; Visit Provider Internal Medicine
DX: Z12.31 Encounter for screening mammogram for malignant neoplasm of breast (principal)
CPT/HCPCS: 77063; 77067

== ENCOUNTER → 2023-09-11 15:45 | Outpatient (BNV) | payer MEDICAID, SELFPAY | PROVIDERS: PCP Internal Medicine; Visit Provider Radiology Diagnostic Radiology | DX: Z12.31 Encounter for screening mammogram for malignant neoplasm of breast (principal) | CPT/HCPCS: 77063; 77067 ==

== ENCOUNTER 2023-09-23 12:59 | Outpatient (REF) | payer MEDICAID, SELFPAY ==
[2023-09-29 23:48] LABS: C. trachomatis RNA TMA NOT DETECTED (NOT DETECTED); N. gonorrhoeae RNA TMA NOT DETECTED (NOT DETECTED)
[2023-09-30 00:03] LABS: Trichomonas (NAAT) NOT DETECTED (NOT DETECTED)
[2023-09-30 12:49] LABS: HPV mRNA E6/E7 rflx Not Detected (Not Detected)
== END 2023-09-23 13:00 | disposition home or self-care (01) ==
LOC: HO.HHCLNP 12:59
PROVIDERS: Visit Provider Internal Medicine
DX: Z01.419 Encounter for gynecological examination (general) (routine) without abnormal findings (principal)
CPT/HCPCS: 36415; 87491; 87591; 87624; 87661; 88142

== ENCOUNTER 2023-10-09 14:09 | Outpatient (REF) | payer MEDICAID, SELFPAY ==
--- NOTE | ~2023-10-09 | MM_ITS ---
EXAMINATION: MM DIAGNOSTIC DIGITAL MAMMOGRAPHY, LEFT CLINICAL INFORMATION: Evaluate calcifications seen left breast upper outer quadrant posterior one third depth. COMPARISON: Mammography: 08/11/2023, 08/24/2018. TECHNIQUE: Digital mammography is performed in the following views: 2-D spot magnification CC and ML views of the left breast were obtained. FINDINGS: The breasts are extremely dense, which lowers the sensitivity of mammography (ACR BI-RADS breast composition Category d). The calcifications in the upper far outer left breast, posterior one third, are loosely grouped, appear to layer somewhat on the ML projection, and in retrospect appear to be present in 2019 with a similar morphology although direct comparison without a prior magnification view is limited. Nevertheless, these are probably benign, and six-month interval follow-up left breast mammography to include standard magnification views is recommended to ensure stability. No additional abnormal findings in the extremely dense left breast parenchyma. MM/MM added views LT IMPRESSION: No evidence of malignancy in the left breast. Probably benign calcifications upper outer left breast posterior one third, possibly related to milk of calcium, but present to some degree in 2019 suggesting long-term presence. ASSESSMENT: BI-RADS BI-RADS 3 - Probably benign finding(s) - 6 month follow-up suggested RECOMMENDATION: 6 Month F/U This patient's information was entered into a reminder system with a target due date for their next mammogram.
== END 2023-10-09 14:10 | disposition home or self-care (01) ==
LOC: HO.MAMMO 14:09
PROVIDERS: PCP Internal Medicine; Visit Provider Internal Medicine
DX: R92.1 Mammographic calcification found on diagnostic imaging of breast (principal)
CPT/HCPCS: 77065

== ENCOUNTER → 2023-10-09 15:00 | Outpatient (BNV) | payer MEDICAID, SELFPAY | PROVIDERS: PCP Internal Medicine; Visit Provider Radiology Diagnostic Radiology | DX: R92.1 Mammographic calcification found on diagnostic imaging of breast (principal) | CPT/HCPCS: 77065 ==

== ENCOUNTER 2023-12-23 13:56 | Outpatient (REF) | payer MEDICAID, SELFPAY ==
[2023-12-23 15:35] LABS: Bacterial Vaginosis PCR POSITIVE (Negative); Candida Group PCR NOT DETECTED (Not Detect); Candida glab krusei PCR NOT DETECTED (Not Detect); Trichomonas vaginalis PCR NOT DETECTED (Not Detect)
== END 2023-12-23 13:57 | disposition home or self-care (01) ==
LOC: HO.HHCLNP 13:56
PROVIDERS: Visit Provider Internal Medicine
DX: N89.8 Other specified noninflammatory disorders of vagina (principal)
CPT/HCPCS: 0352U

== ENCOUNTER → 2024-04-06 13:00 | Outpatient (BNV) | payer MEDICAID, SELFPAY | PROVIDERS: PCP Internal Medicine; Visit Provider Radiology Diagnostic Radiology | DX: R92.1 Mammographic calcification found on diagnostic imaging of breast (principal) | CPT/HCPCS: 77065 ==

== ENCOUNTER 2024-04-06 13:13 | Outpatient (REF) | payer MEDICAID, SELFPAY ==
--- NOTE | ~2024-04-06 | MM_ITS ---
EXAMINATION: MM DIAGNOSTIC DIGITAL MAMMOGRAPHY, LEFT CLINICAL INFORMATION: 6 month follow-up (first) for left breast calcifications upper outer quadrant, posterior depth. COMPARISON: Mammography: 10/10/2023, 09/11/2023 (BI-RADS 0), 08/24/2018. TECHNIQUE: Digital mammography is performed the following views: 2-D Spot magnification left CC and ML views. Computer-aided diagnosis was used for this study. FINDINGS: The breasts are extremely dense, which lowers the sensitivity of mammography (ACR BI-RADS breast composition Category d). There has been no significant or aggressive change in number or morphology of the grouped calcifications in the upper outer left breast posterior one third. Again, these appear to layer on the 90 degree mediolateral projection and are most likely milk of calcium. These remain probably benign. Results are provided to the patient at time of visit by the technologist. MM/MM diagnostic mammo unilat LT IMPRESSION: There has been no significant change. Probably benign left breast calcifications are stable, likely milk of calcium. Additional six-month follow-up diagnostic left breast mammography (standard magnification views) recommended to assess for stability when the patient is due for bilateral screening. ASSESSMENT: BI-RADS BI-RADS 3 - Probably benign finding(s) - 6 month follow-up suggested RECOMMENDATION: 6 Month F/U This patient's information was entered into a reminder system with a target due date for their next mammogram. Electronically signed by: Cecil Correa MD 04/06/2024 01:57 PM EDT Workstation: [id number]
== END 2024-04-06 13:14 | disposition home or self-care (01) ==
LOC: HO.MAMMO 13:13
PROVIDERS: PCP Internal Medicine; Visit Provider Internal Medicine
DX: R92.1 Mammographic calcification found on diagnostic imaging of breast (principal)
CPT/HCPCS: 77062; 77065

== ENCOUNTER 2024-07-27 13:46 | Outpatient (REF) | payer MEDICAID, SELFPAY ==
[2024-07-30 13:38] LABS: TS Negative Control Passed; TS Panel A 1; TS Panel B 2; TS Positive Control Passed; TSpotTB Negative (Negative)
== END 2024-07-27 13:47 | disposition home or self-care (01) ==
LOC: HO.HHCL 13:46
PROVIDERS: Visit Provider Internal Medicine
DX: Z11.1 Encounter for screening for respiratory tuberculosis (principal)
CPT/HCPCS: 36415; 86481

== ENCOUNTER 2024-10-24 12:27 | Outpatient (REF) | payer MEDICAID, SELFPAY ==
--- NOTE | ~2024-10-24 | MM_ITS ---
EXAMINATION: MM DIAGNOSTIC DIGITAL BREAST TOMOSYNTHESIS, BILATERAL CLINICAL INFORMATION: Grouped calcifications in the upper outer left breast posterior depth 1 year follow-up. COMPARISON: Mammography: Comparison is made with relevant prior exams. TECHNIQUE: Digital breast mammography with tomosynthesis is performed in both the craniocaudal and mediolateral oblique views along with computer-aided detection (CAD). FINDINGS: The breasts are extremely dense, which lowers the sensitivity of mammography (ACR BI-RADS breast composition Category d). Left: Grouped calcifications in the upper outer breast posterior depth some of which layer on ML magnification views are not significantly changed from prior magnification views dating back for one year. Suspicious masses or other abnormal findings. Right: No suspicious masses calcifications or other abnormal findings. Results are provided to the patient at time of visit by the technologist. MM/MM tomosynthesis diagnostic BI IMPRESSION: Left: Grouped calcifications in the upper outer breast posterior depth not significantly changed from prior magnification views dating back for one year. Recommend one-year follow-up with magnification views to demonstrate 2 years of stability. Right: Negative. ASSESSMENT: BI-RADS BI-RADS 3 - Probably benign finding(s) - 12 month follow-up suggested RECOMMENDATION: 12 month diagnostic follow up This patient's information was entered into a reminder system with a target due date for their next mammogram. Electronically signed by: Alice Nava DO 10/24/2024 02:53 PM EDT
--- OUTSIDE RECORDS SUMMARY | 2024-10-24 14:47 | XMS_ITS | Encounter Summary ---
Author Organization [facility] Address [address] [place] [address] Care Team Providers Care Acupressurist Name Role Phone Dianne Gonsalez MD Primary Care Provide r Reason for Visit * Reason Onset Date Comments Med Refill 12/23/2023 Encounter Details Date Type Department Care Team (Late st Contact Info) Description 12/23/2023 Refill [facility] [address] [place], [place] [phone] Dianne Gonsalez MD [address] [place], [place] [phone] Moderate persistent asthma without complication Social History Tobacco Use Types Packs/Day Years Used Date Smoking Tobacco: Former Cigarettes Passive Smoke Exposure: Past Smokeless Tobacco: Never Alcohol Use Standard Drinks/Week Comments Yes 0 (1 standard drink = 0.6 oz pur e alcohol) rare Depression Answer Date Recorded Patient Health Questionnaire-9 Score 0 08/10/2023 Patient Health Questionnaire-9 Score 0 08/10/2023 Last PHQ-9: Questionnaire Data Not on file 0 08/10/2023 Housing Stability Answer Date Recorded What is your housing situation today? I have ellyn sing 08/10/[address] you li ve. Do you have problems with any of the following? None of the above 08/10/2023 Food Insecurity Answer Date Recorded Within the past 12 months, y ou worried that your food would run out before you got money to buy more: Never True 08/10/2023 Within the past 12 months,th e food you bought just didn't last and you didn't have enough money to get more: Never True Transportation Answer Date Recorded In the past 12 months, has l ack of transportation kept you from medical appts, meetings, work or from getting things needed for daily living? No 08/10/2023 Utilities Answer Date Recorded In the past 12 months, has t he electric, gas, oil or water company threatened to shut off services in your home? No 08/10/2023 Depression Answer Date Recorded Patient Health Questionnaire-2 Score 0 08/10/2023 Comments Unknown Sex and Gender Information Value Date Recorded Sex Assigned at Female 05/19/2022 10:16 AM EDT Legal Sex Female 10:16 AM EDT Gender Identity Female 05/19/2022 10:16 AM EDT Sexual Orientation Straight 05/19/2022 10 :16 AM EDT documented as of this encounter Plan of Treatment Upcoming Encounters Date Type Department Care Team (Late st Contact Info) Description 10/25/2024 1:00 PM EDT Nurse Only [facility] MED[facility] [address] [place] [phone] documented as of this encounter Visit Diagnoses Diagnosis Moderate persistent asthma without complication documented in this encounter Additional Health Concerns Assessment Noted Time PHQ-9 Depression Total Score: 0 08/10/19 24 9:28 AM EST documented as of this encounter Care Teams Acupressurist Relationship Specialty Start Date End Date Dianne Gonsalez MD [address] [place] [phone] PCP - General Family Medicine 03/31/18 documented as of this encounter
--- OUTSIDE RECORDS SUMMARY | 2024-10-24 14:47 | XMS_ITS | Encounter Summary ---
Author Organization [employer] [facility] Address [address] [place] [address] [address] [place] [address] Care Team Providers Care Fire Boss Name Role Phone Dianne Gonsalez MD Primary Care Provide r Encounter Details Date Type Department Care Team (Latest Contact Info) Description 10/07/2018 Abstract [facility] CONVERSIONS Dental, Provider, DDS Social History Tobacco Use Types Packs/Day Years Used Date Smoking Tobacco: Never Assessed Comments Unknown Sex and Gender Information Value Date Recorded Sex Assigned at Female 05/19/2022 10:16 AM EDT Legal Sex Female 10:16 AM EDT Gender Identity Female 05/19/2022 10:16 AM EDT Sexual Orientation Straight 05/19/2022 10 :16 AM EDT documented as of this encounter Plan of Treatment Upcoming Encounters Date Type Department Care Team ( st Contact Info) Description 10/25/2024 1:00 PM EDT Nurse Only [facility] MEDICINE [address] [place], [place] [phone] documented as of this encounter Visit Diagnoses Not on filedocumented in this encounter Care Teams Fire Boss Relationship Specialty Start Date End Date Dianne Gonsalez MD [address] [place], [place] [phone] PCP - General Family Medicine 03/31/18 documented as of this encounter
--- OUTSIDE RECORDS SUMMARY | 2024-10-24 14:47 | XMS_ITS | Encounter Summary ---
Author Organization [employer] Address [address] [place] [address] Care Team Providers Care Broiler Supervisor Name Role Phone Dianne Gonsalez MD Primary Care Provide r Reason for Visit * Reason Onset Date Comments Abn mammo follow up 10/19/2024 Encounter Details Date Type Department Care Team ([facility] st Contact Info) Description 10/19/2024 Telephone [facility] [address] [place], [place] [phone] Shanti Garrido Abn mammo follow up Social History Tobacco Use Types Packs/Day Years [...] your housing situation today? I have ellyn romero 08/10/[address] you li [...] AM EDT documented as of this encounter Miscellaneous Notes * Telephone Encounter - Sahnti Garrido - 10/19/2024 9:34 AM EDT Outgoing call placed [facility] last imaging patient had completed was on 04/06/2024 and recommendation was to follow up in 6 months . Let staff at [facility] know so they can reach out to patient and schedule . Histories and tracking updated documented in this encounter Plan of Treatment Upcoming Encounters Date Type Department Care Team (Late st Contact Info) Description 10/25/2024 1:00 PM EDT Nurse Only [facility] MEDICINE [address] [place] [phone] documented as of this encounter Visit Diagnoses Not on filedocumented in this encounter Additional Health Concerns Assessment Noted Time PHQ-9 Depression Total Score: 0 08/10/19 24 9:28 AM EST documented as of this encounter Care Teams Broiler Supervisor Relationship Specialty Start Date End Date Dianne Gonsalez MD [address] [place] [phone] PCP - General Family Medicine 03/31/18 documented as of this encounter
--- OUTSIDE RECORDS SUMMARY | 2024-10-24 14:47 | XMS_ITS | Clinical Summary ---
Author Organization [employer] Address [address] [facility] 7t [place] [address] Care Team Providers Care Busboy Name Role Phone Dianne Gonsalez MD Primary Care Provide r Allergies Active Allergy Reactions Criticality Noted Date Comments Morphine 07/22/2013 Medications Acetaminophen Extra Strength 500 MG tablet TAKE 1 TABLET BY MOUTH EVERY 6 HOURS NEEDED 05/13/20 22 Active dicyclomine (Bentyl) 10 MG capsule TAKE 1 CAPSULE BY MOUTH THREE TIMES DAILY 10/25/19 22 Active butalbital-acetami nophen-caffeine 50-325-40 MG tablet TAKE 1 TABLET BY MOUTH EVERY 6 HOURS NEEDED FOR HEADACHE 07/17/20 23 Active ondansetron ODT (Zofran-ODT) 4 MG disintegrating tablet DISSOLVE 1 TABLET IN MOUTH EVERY 8 HOURS NEEDED FOR NAUSEA AND VOMITING 07/28/19 24 Active SUMAtriptan (Imitrex) 50 MG tablet TAKE 1 TABLET BY MOUTH AT ONSET OF MIGRAINE. MAY REPEAT ONCE AFTER 2 HOURS IF NEEDED DO NOT EXCEED 2 TABLETS / 24 HOURS 07/17/20 23 Active montelukast (Singulair) 10 MG tabletIndications: Moderate persistent asthma without complication Take 1 tablet (10 mg) by mouth at bedtime. 30 tablet 11 12/23/19 24 025 Active omeprazole (PriLOSEC) [address] capsuleIndications :Gastritis, presence of bleeding unspecified, unspecified chronicity, unspecified gastritis type TAKE 1 CAPSULE BY MOUTH EVERY DAY BEFORE BREAKFAST AT 630 IN THE MORNING 90 capsule 02/01/20 24 Active albuterol (Ventolin HFA) 108 (90 Base) MCG/ACT inhalerIndications :Moderate persistent asthma without complication INHALE 2 PUFFS FOUR TIMES DAILY NEEDED 18 g 1 04/20/20 24 Active Mometasone Furoate (Asmanex HFA) 100 MCG/ACT aerosolIndications :Moderate persistent asthma without complication Inhale 2 puffs 2 times daily. 13 g 5 04/20/20 24 Active albuterol 1.25 MG/3ML nebulizer solution Take 6 mL (2.5 mg) by nebulization every 6 (six) hours if needed for wheezing. 75 mL 04/20/20 24 Active Active Problems Problem Noted Date Diagnosed Date Vaginal discharge 12/23/2023 Family planning 12/23/2023 Encounter for Papanicolaou s mear for cervical cancer screening 09/23/2023 Assessment & Plan (09/23/2023 11:34 AM EST): PAP smear and pelvic exam done Patient will be contacted with results Gastritis 08/10/2023 Assessment & Plan (08/10/2023 1:51 PM EST): I advise patient to avoid NSAIDs, spicy and acid food, I advise to eat at the same time every day, I advise to elevate the head of the bed and take medications as prescribe Cyclical vomiting 08/10/2023 Assessment & Plan (08/10/2023 1:54 PM EST): Resolved now, I advise to avoid mariajuana products and to treat her gastritis appropriately Encounter for screening mamm ogram for malignant neoplasm of breast 08/10/2023 Elevated blood pressure reading 08/05/2022 Assessment & Plan (08/05/2022 5:35 PM EST): Unclear if it was an error. -Recommended to check BP TIW -Keep symptoms diary. -FU with me in 3-4 weeks . Encounter for preventive health examination 07/20 Assessment & Plan (08/05/2022 5:36 PM EST): -Patient is encouraged to exercise moderately 4-5x/week. -Counseled to increase consumption of fresh fruit, veggies and water. To have frequent and small meals. -I have discussed having protected sex at all times for STI purposes. -Pat does not smoke, uses alcohol or any illicit drugs, seems to feel safe at home. Counseled to decrease consumption of THC. -PAP smear to be scheduled next year. -Her adult IZs: will have Influenza iz today + covid booster + PCV20 -Opthalmology due 2023 -Lipids and other tests to be done for next month's appointment. Anxiety 07/30/2022 Bilateral low back pain without sciatica 023 Moderate asthma 07/30/2022 Assessment & Plan (08/10/2023 1:52 PM EST): Patient educated to avoid asthma triggers C/w albuterol PRN C/w flovent BID Montelukast 10mg daily Assessment & Plan (08/05/2022 5:33 PM EST): r/o exercise induced asthma. 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 Encounters Date Type Department Care Team Description 10/19/2024 Telephone [facility] PEDS [address] [place], [place] [phone] Shanti Garrido mammo follow up 09/30/2024 Population Health Risk Score [facility] ([facility] Department [address] [phone] Provider, Population Health Generic 07/27/2024 Orders Only [facility] MEDICINE [address] [place], [place] [phone] Arlet Adam LPN Screening examination for pulmonary tuberculosis (Primary Dx) from Last 3 Months Immunizations Name Administration Dates Next Due Hep A, Adult 04/26/2024 Hep B, adult 12/13/2020,01/02/2010,11/15/2009 Influenza injectable quadriv alent IIV4 with preservative 08/05/2022,05/24/2018,04/11/2016 Influenza, IIV3, injectable 07/25/2014, 1 Influenza, Split (incl. domonique fied surface antigen) 04/14/2013 Influenza, seasonal, injecta ble, preservative free 04/26/2024 Pneumococcal Polysaccharide PPSV23 11/28/2014 TD (adult), 2 Lf tetanus tox oid, preservative free, adsorbed 12/13/2020 Tdap 10/17/2009 Social History Tobacco Use Types Packs/Day Years Used Date Smoking Tobacco: Former Cigarettes Passive Smoke Exposure: Past Smokeless Tobacco: Never Tobacco Cessation:Counseling Given: Not Answered Alcohol Use Standard Drinks/Week Comments Yes 0 [...] the past 12 months, has t he [employer], gas, oil or water company threatened to shut off services in your home? No 08/10/2023 Depression Answer Date Recorded Patient Health Questionnaire-2 Score 0 08/10/2023 Comments Unknown Sex and Gender Information Value Date Recorded Sex Assigned at Female 05/19/2022 10:16 AM EDT Legal Sex Female 10:16 AM EDT Gender Identity Female 05/19/2022 10:16 AM EDT Sexual Orientation Straight 05/19/2022 10 :16 AM EDT Last Filed Vital Signs Vital Sign Reading Time Taken Comments Blood Pressure 104/82 12/23/2023 9:31 AM EDT Pulse 80 12/23/2023 9:31 AM EDT Temperature 36.4 ??C (97.6 ??F) 12/23/2023 9:31 AM ED T Respiratory Rate 16 12/23/2023 9:31 AM EDT Oxygen Saturation 98% 12/23/2023 9:31 AM EDT Inhaled Oxygen Concentration - - Weight 54.4 kg (120 lb) 12/23/2023 9:31 AM EDT Height 149.9 cm (4' 11 ) 12/23/2023 9:31 AM EDT Body Mass Index 24.24 12/23/2023 9:31 AM EDT Plan of Treatment Upcoming Encounters Date Type Department Care Team (Late st Contact Info) Description 10/25/2024 1:00 PM EDT Nurse Only [facility] MEDICINE [address] [place] [address] Health Maintenance Due Date Last Done Comments HIV Screening 1982 Alcohol/Substance Use Screening 1994 Family Planning (PISQ) 1997 Hepatitis C Screening 2000 Pneumococcal Vaccine: Pediatrics (0 to 5 Years) and At-Risk Patients (6 to 49) Years) (2 of 2 - PCV) 11/29/2015 11/28/2014 COVID-19 Vaccine (3 - season) 2024 04/24/2021, 04/02/2021 Depression Screening 08/10/2024 08/10/2023, 08/10/19 24 SDOH Screening 08/10/2024 08/10/2023 Diagnostic Breast Imaging 10/04/20242023, 10/09/2023, 08/24/2018 Tobacco Screening 12/22/2024 12/23/2023 Cervical Cancer Screening 09/22/2028 HPV/Cotest 09/22/2028 09/23/2023, 09/29/2018 Pap Smear 09/22/2028 09/23/2023, 12/2023, 09/29/2018 DTaP/Tdap/Td Vaccines (3 - Td or Tdap) 12/13/2030 12/13/2020, 10/17/2009 Zoster Vaccines (1 of 2) 2032 RSV Patients and Patients Aged 60 years or older (1 - 1-dose 75+ series) 2057 Hepatitis B Vaccines Completed 12/13/2020, 01/02/2010, 11/15/2009 Hepatitis A Vaccines Aged Out 04/26/2024 No long er eligible based on patient's age to complete this topic Influenza Vaccine Completed 04/26/2024, , 05/24/2018, Additional history exists HIB Vaccines Aged Out No longer eligi ble based on patient's age to complete this topic HPV Vaccines Aged Out No longer eligi ble based on patient's age to complete this topic IPV Vaccines Aged Out No longer eligi ble based on patient's age to complete this topic Meningococcal Vaccine Aged Out No froylan maxine eligible based on patient's age to complete this topic RSV under 20 months Aged Out No longe r eligible based on patient's age to complete this topic Rotavirus Vaccines Aged Out No longer eligible based on patient's age to complete this topic Procedures Procedure Name Priority Date/Time Associated Diagnosis Comments T-SPOT(R).TB Routine 07/27/2024 1:54 PM EST Screening examination for pulmonary tuberculosis BI MAMMOGRAM DIAGNOSTIC LEFT Routine 04/06/2024 1:16 PM EDT HPV MRNA E6/E7 REFLEX TO HPV 16, 18/45 Routine 09/23/2023 11:54 AM EST IMAGE-GUIDED PAP W/AGE BASED SCR,W/CT/NG/TRICH Routine 09/23/2023 11:54 AM EST Encounter for Papanicolaou smear for cervical cancer screening from Last 3 Months or Most Recently Relevant to Health Maintenance Results * T-SPOT??.TB (07/27/2024 1:54 PM EST) Pathologist [facility] T Spot TB Negative Negative [facility] Comment:A negative test resu lt does not exclude the possibilityof exposure to or infection with Mycobacteriumtuberculosis (M. tuberculosis). Patients with recentexposure to TB infected individuals exhibiting anegative T-SPOT.TB result should be considered forretesting within 6 weeks or if other relevant clinicalsymptoms indicate. Results from T-SPOT.TB testing mustbe used in conjunction with each individual'sepidemiological history, current medical status,and results of other diagnostic evaluations.The T-SPOT.TB test is qualitative and results arereported as positive, borderline, or negative, giventhat the test controls perform as expected. In linewith the Centers for Disease Control and Prevention's2010 recommendation to report quantitative measurementsalongside the qualitative result, the laboratoryprovides spot counts for informational purposes only.The T-SPOT.TB test should not be interpreted as aquantitative test. TS PANEL A 1 [facility] TS PANEL B 2 [facility] Negative Control Passed [facility] Positive Control Passed [facility] Comment:For additional infor patricenatalee, please refer tohttp://education.amBX/faq/CIF144(This link is being provided for informational/educational purposes only.)THIS TEST WAS PERFORMED AT:[employer] [id number] [place] [id number] BARBER MD,PHD 07/27/2024 1:54 PM EST 07/27/2024 4:04 PM EST Dianne Naik MD LAB BLOOD ORDERABLES Final Result Performing Organization Address [facility]/State/[facility] Co de Phone Number [facility] [address] [place] [phone] * BI Mammogram Diagnostic Left (04/06/2024 1:16 PM EDT) Anatomical Region Laterality Modality Breast Left Mammography 04/06/2024 1:16 PM EDT Narrative 04/06/2024 2:00 PM EDT ? [facility] [place] ? [address] ?[place] [address] ? Mammography Report ? Signed ? Patient: Teetee Campuzano E ?MR#: MM ?? [id number] ? : 1980 ?Acct:[id number] ? Age/Sex: 43 / F ?ADM Date: 09/18/24 ? Loc: HO.MAMMO ? Attending Dr: Dianne Naik MD ? Ordering Physician: Dianne Gonsalez MD ?Results: 3.6MProbably Benign Finding - Short 6 M F/U ?? Suggested ? Date of Service: 04/06/24 ?Follow Up: 6 Month F/U ? Procedure(s): MM diagnostic mammo unilat LT ?? Accession Number(s): [id number] ? cc: Dianne Gonsalez MD ? EXAMINATION: ?? MM DIAGNOSTIC DIGITAL MAMMOGRAPHY, LEFT ? CLINICAL INFORMATION: ? 6 month follow-up (first) for left breast calcifications upper outer ?? quadrant, posterior depth. ? COMPARISON: ?? Mammography: 10/10/2023, 09/11/2023 (BI-RADS 0), 08/24/2018. ? TECHNIQUE: ?? Digital mammography is performed the following views: 2-D Spot ?? magnification left CC and ML views. ?? Computer-aided diagnosis was used for this study. ? FINDINGS: ?? The breasts are extremely dense, which lowers the sensitivity of ?? mammography (ACR BI-RADS breast composition Category d). ? There has been no significant or aggressive change in number or ?? morphology of the grouped calcifications in the upper outer left breast ?? posterior one third. Again, these appear to layer on the 90 degree ?? mediolateral projection and are most likely milk of calcium. These ?? remain probably benign. ?? Results are provided to the patient at time of visit by the ?? technologist. ? MM/MM diagnostic mammo unilat LT ?? IMPRESSION: ?? There has been no significant change. Probably benign left breast ?? calcifications are stable, likely milk of calcium. ? Additional six-month follow-up diagnostic left breast mammography ?? (standard magnification views) recommended to assess for stability when ?? the patient is due for bilateral screening. ? ASSESSMENT: ? BI-RADS BI-RADS 3 - Probably benign finding(s) - 6 month follow-up ?? suggested ? RECOMMENDATION: ?? 6 Month F/U ? This patient's information was entered into a reminder system with a ?? target due date for their next mammogram. ? Electronically signed by: ??Cecil Correa MD ??04/06/2024 01:57 PM EDT RP ? Dictated By: ?Cecil Correa MD ? Signed By: ?<Electronically signed by Cecil Correa MD in OV> ?04/06/24 1357 ? DD/ 1316 ? TD/TT: 04/06/24 1335 ? Android Ios Developer: ? Procedure Note [place]ulah, Image - 04/06/2024 [place] [facility] [address] [place] [address] [place] [address] Mammography Report Signed Patient: Teetee Campuzano EMR#: [id number] : 1980Acct:[id number] Age/Sex: 43 / FADM Date: 04/06/24 Loc: HO.MAMMO Attending Dr: Dianne Naik MD Ordering Physician: Dianne Gonsalez MD Results: 3.6MProbably Benign Finding - Short 6 M F/U Suggested Date of Service: 04/06/24Follow Up: 6 Month F/U Procedure(s): MM diagnostic mammo unilat LT Accession Number(s): [id number] cc: Dianne Gonsalez MD EXAMINATION: MM DIAGNOSTIC DIGITAL MAMMOGRAPHY, LEFT CLINICAL INFORMATION: 6 month follow-up (first) for left breast calcifications upper outer quadrant, posterior depth. COMPARISON: Mammography: 10/10/2023, 09/11/2023 (BI-RADS 0), 08/24/2018. TECHNIQUE: Digital mammography is performed the following views: 2-D Spot magnification left CC and ML views. Computer-aided diagnosis was used for this study. FINDINGS: The breasts are extremely dense, which lowers the sensitivity of mammography (ACR BI-RADS breast composition Category d). There has been no significant or aggressive change in number or morphology of the grouped calcifications in the upper outer left breast posterior one third. Again, these appear to layer on the 90 degree mediolateral projection and are most likely milk of calcium. These remain probably benign. Results are provided to the patient at time of visit by the technologist. MM/MM diagnostic mammo unilat LT IMPRESSION: There has been no significant change. Probably benign left breast calcifications are stable, likely milk of calcium. Additional six-month follow-up diagnostic left breast mammography (standard magnification views) recommended to assess for stability when the patient is due for bilateral screening. ASSESSMENT: BI-RADS BI-RADS 3 - Probably benign finding(s) - 6 month follow-up suggested RECOMMENDATION: 6 Month F/U This patient's information was entered into a reminder system with a target due date for their next mammogram. Electronically signed by: Cecil Correa MD 04/06/2024 01:57 PM EDT Dictated By: Cecil Correa MD Signed By: <Electronically signed by Cecil Correa MD in OV> 04/06/24 1357 DD/ 1316 TD/TT: 04/06/24 1335 Android Ios Developer: us Dianne Naik MD IMG BI PROCEDURES Fin al Result * Image-Guided Pap with Age-Based Screening??with CT/NG,??Trichomonas (09/23/2023 11:54 AM EST) Trichomonas (NAAT) NOT DETECTED NOT DETECTED [facility] Comment:The analytical perfo rmance characteristics of thisassay have been determined by [employer]. Themodifications have not been cleared or approved bythe FDA. This assay has been validated pursuant to theIA regulations and is used for clinical purposes.For additional information, please refer tohttp://devsisters.amBX/faq/Trichomonastma(This link is being provided for information/educational purposes only.)THIS TEST WAS PERFORMED AT:[address] [place] [id number] POOLE MD CTNG Ref Lab NOT DETECTED NOT DETECTED [facility] NG Ref Lab NOT DETECTED NOT DETECTED [facility] Pap Vial 09/23/2023 11:5 4 AM EST 09/28/2023 12:34 PM EDT Narrative [facility] - 09/30/2023 12:03 AM EDT LMP: [id number] Dianne Naik MD LAB CYTOLOGY ORDERABL ES Final Result [facility] [address] [place] [phone] * HPV mRNA E6/E7 w/Reflex to HPV Genotypes 16, 18/45 (09/23/2023 11:54 AM EST) HPV nRNA E6/E7 Not Detected Not Detected [facility] Comment:Methodology: Transcr iption-Mediated AmplificationThis assay detects E6/E7 viral messenger RNA (mRNA) from 14high-risk HPV types (16,18,31,33,35,39,45,51,52,56,58,59,66,68).Cervical sources are required for HPV testing.If a vaginal source from a patient who has had atotal hysterectomy with removal of cervix wassubmitted, please contact the testing laboratoryfor alternative testing options.For additional information, please refer tohttp://devsisters.amBX/faq/TYI200a9(This link if provided for information/educational purposes only.)THIS TEST WAS PERFORMED AT:[address] [place] [id number] POOLE MD HPV mRNA E6/E7 [facility] HPV 16 RNA [facility] HPV 18/45 RNA [facility] 09/23/2023 11:5 4 AM EST 09/24/2023 8:30 AM EST us Dianne Naik MD LAB CYTOLOGY ORDERABL ES Final Result [facility] [address] [place] [phone] from Last 3 Months or Most Recently Relevant to Health Maintenance Insurance [address] [place] Care Teams Busboy Relationship Specialty Start Date End Date Dianne Gonsalez MD [address] [place] [phone] PCP - General Family Medicine 03/31/18
--- OUTSIDE RECORDS SUMMARY | 2024-10-24 14:47 | XMS_ITS | Encounter Summary ---
Author Organization [employer] [facility] Address [address] [facility] 7t [place] [address] Care Team Providers Care Photograph Mounter Name Role Phone Dianne Gonsalez MD Primary Care Provide r Reason for Visit * Reason Onset Date Comments Med Refill 12/23/2023 Encounter Details Date Type Department Care Team (Late st Contact Info) Description 12/23/2023 Refill [facility] [address] [place], [place] [phone] Dianne Gonsalez MD [address] [place], [place] [phone] Moderate persistent asthma without complication Social History [...] Description 10/25/2024 1:00 PM EDT Nurse Only [facility] [address] [place] [address] documented as of this encounter Visit Diagnoses Diagnosis Moderate persistent asthma without complication documented in this encounter Additional Health Concerns Assessment Noted Time PHQ-9 Depression Total Score: 0 08/10/19 24 9:28 AM EST documented as of this encounter Care Teams Photograph Mounter Relationship Specialty Start Date End Date Dianne Gonsalez MD [address] [place] [address] PCP - General Family Medicine 03/31/18 documented as of this encounter
--- OUTSIDE RECORDS SUMMARY | 2024-10-24 14:47 | XMS_ITS | Encounter Summary ---
Author Organization [facility] [facility] Address [address] [place] [address] 7t [place] [address] Care Team Providers Care Survey Researcher Name Role Phone Dianne Gonsalez MD Primary Care Provide r Encounter Details Date Type Department Care Team (Latest Contact Info) Description 07/08/2021 Abstract [facility] CONVERSIONS Dental, Provider, DDS Social History Tobacco [...] Description 10/25/2024 1:00 PM EDT Nurse Only [facility] MEDICINE [address] [place] [address] documented as of this encounter Visit Diagnoses Not on filedocumented in this encounter Care Teams Survey Researcher Relationship Specialty Start Date End Date Dianne Gonsalez MD [address] [place], [place] [phone] PCP - General Family Medicine 03/31/18 documented as of this encounter
--- OUTSIDE RECORDS SUMMARY | 2024-10-24 14:47 | XMS_ITS | Encounter Summary ---
Author Organization [employer] [facility] Address [address] [facility] 7t [place] [address] Care Team Providers Care Restaurant Expeditor Name Role Phone Dianne Gonsalez MD Primary Care Provide r Reason for Visit * Reason Onset Date Comments Med Refill 12/25/2023 Encounter Details Date Type Department Care Team (Late st Contact Info) Description 12/25/2023 Refill [facility] [address] [place], [place] [phone] Dianne Gonsalez MD [address] [place], [place] [phone] Social History Tobacco Use Types Packs/Day Years [...] is your housing situation today? I have ellynna romero 08/10/[address] you [...] Description 10/25/2024 1:00 PM EDT Nurse Only [facility] [address] [place] [address] documented as of this encounter Visit Diagnoses Not on filedocumented in this encounter Additional Health Concerns Assessment Noted Time PHQ-9 Depression Total Score: 0 08/10/19 24 9:28 AM EST documented as of this encounter Care Teams Restaurant Expeditor Relationship Specialty Start Date End Date Dianne Gonsalez MD [address] [place] [phone] PCP - General Family Medicine 03/31/18 documented as of this encounter
--- OUTSIDE RECORDS SUMMARY | 2024-10-24 14:47 | XMS_ITS | Encounter Summary ---
Author Organization [facility] Address [address] [place] [address] [address] [place] [address] Care Team Providers Care Air Traffic Systems Technician Name Role Phone Dianne Gonsalez MD Primary Care Provide r Reason for Visit * Reason Onset Date Comments Nurse Triage 02/26/2023 Encounter Details Date Type Department Care Team (Late st Contact Info) Description 02/26/2023 Telephone [facility] [address], [place] [phone] Dianne Gonsalez MD [address] [place], [place] [phone] Nurse Triage Social History Tobacco Use Types Packs/Day Years Used Date Smoking Tobacco: Former Cigarettes Passive Smoke Exposure: Past Smokeless Tobacco: Never Alcohol Use Standard Drinks/Week Comments Yes 0 (1 standard drink = 0.6 oz pur e alcohol) rare Depression Answer Date Recorded Patient Health Questionnaire-2 Score 0 08/05/2022 Comments Unknown Sex and Gender Information Value Date Recorded Sex Assigned at Female 05/19/2022 10:16 AM EDT Legal Sex Female 10:16 AM EDT Gender Identity Female 05/19/2022 10:16 AM EDT Sexual Orientation Straight 05/19/2022 10 :16 AM EDT documented as of this encounter Miscellaneous Notes * Telephone Encounter - Loraine Jimenez RN - 02/26/2023 2:45 PM EDT 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 Pt reports has had pain with intercourse prior to this event but, partner and Pt decided to wait several days to be sure pain had passed prior to further relation. Pt reports that this morning Pt had intercourse again and immediately had bleeding when going to the bathroom. Pt used a tampon at the time which was 1/2 full of red blood with removal and put on a pad . Pt had to go to work. Pt is at work at time of this call and has not been able to stop to go to the bathroom to check on amount of bleeding but, feels that it is decreasing. Pt last period was end of January. Pt has had much stress so had period x2 last month. Pt reports much pain in the right lower quadrant and makes it difficult to walk. Pt is taking tylenol, advised to use ice when Pt gets home and Pt agrees. Pt is offered an apt with ANANYA Romero 03/02 but requests to be seen earlier. Advised to come to [facility] 02/27/23 hours are 830am- 400pm. Pt agrees with thisdisposition. Insurance is verified as active prior to booking. Protocol Used: Vaginal Bleeding - Abnormal (Adult) Protocol-Based Disposition: See in Office or Video Visit Today Override (Final) Disposition: See in Office or Video Visit Today or Tomorrow Override Reason: Other Video visit not offered Positive Triage Question: * Patient wants to be seen * All higher-acuity triage questions were negative Care Advice Discussed: * Reasons To Call Back - Severe abdomen pain or lightheadedness occurs - test is positive - Bleeding worsens - Bleeding or spotting lasts over 7 days - You become worse * Telephone Encounter - Stefanie Khan - 02/26/2023 2:17 PM EDT Symptom: Vaginal Bleeding - Not Outcome: Schedule an urgent appointment (within 4 hours) or talk to a nurse or provider soon Reason: Started within the past 3 days The caller accepted this outcome Please contact pt at [phone] (Moroccan) documented in this encounter Plan of Treatment Upcoming Encounters Date Type Department Care Team ([facility] Contact Info) Description 10/25/2024 1:00 PM EDT Nurse Only [facility] [address] [place] [address] documented as of this encounter Visit Diagnoses Not on filedocumented in this encounter Care Teams Air Traffic Systems Technician Relationship Specialty Start Date End Date Dianne Gonsalez MD [address] [place] [address] PCP - General Family Medicine 03/31/18 documented as of this encounter
== END 2024-10-24 12:28 | disposition home or self-care (01) ==
LOC: HO.MAMMO 12:27
PROVIDERS: Visit Provider Internal Medicine
DX: R92.1 Mammographic calcification found on diagnostic imaging of breast (principal)
CPT/HCPCS: 77062; 77066

== ENCOUNTER → 2024-10-24 12:30 | Outpatient (BNV) | payer MEDICAID, SELFPAY | PROVIDERS: Visit Provider Internal Medicine | DX: R92.1 Mammographic calcification found on diagnostic imaging of breast (principal) | CPT/HCPCS: 77062; 77066 ==